=== PATIENT | female | born 1980 | race African-American/Black ===

== ENCOUNTER 2019-09-23 15:05 | Emergency (ER) | payer OTHER, SELFPAY ==
[2019-09-23 15:14] VITALS: BP 149/76; PULSE 89; RESP 18; TEMP 37.3; O2SAT 100
--- NOTE | 2019-09-23 15:14 | ED_ITS ---
HPI - Eye Problem General Chief complaint: Eye Problems Stated complaint: R EYE CHEMICAL EXPOSURE Time Seen by Provider: 09/23/19 15:11 Source: patient Mode of arrival: ambulatory Limitations: no limitations History of Present Illness HPI Narrative: Patient is a 39-year-old female who presents with right eye irritation after splashing some bleach cleaning products into the right eye irrigated the eye for 20 minutes patient denies any visual changes presents for evaluation notes her tetanus is up-to-date and is otherwise resting comfortably in the room in no distress noting only mild discomfort at the eye worse with movement Related Data Allergies Allergy/AdvReac Type Severity Reaction Status Date / Time No Known Allergies Allergy Unverified 09/23/19 15:13 Review of Systems Review of Systems: Narrative: CONSTITUTIONAL: Denies fever, chills, or sweats. EYES: Denies visual changes ENT: Denies rhinorrhea, congestion, sore throat, or otalgia. RESPIRATORY: Denies cough or dyspnea. GASTROINTESTINAL: Denies nausea, vomiting SKIN: Denies rash or itching. NEUROLOGIC: Denies headache, numbness PMFSH Social History Social History (Updated 09/23/19 @ 15:16 by Duke Lerma PA-C) Smoking status: Never smoker Gender identity (if verbalized by the patient): Female Exam Narrative: Exam Narrative: GENERAL: Well-appearing, well-nourished, and in no acute distress. HEAD: Normocephalic, atraumatic. Subtle fluorescein uptake over the iris remainder of eye exam unremarkable EYES: PERRLA and EOMI. right eye with conjunctival injection no discharge noted no abrasions noted ENT: Nares clear, no rhinorrhea or epistaxis. Mucous membranes moist. Oropharynx without tonsillar hypertrophy exudate or other lesions. CHEST: Clear to auscultation. No respiratory distress. No wheezes rales or rhonchi HEART: Regular rate and rhythm. No murmur heard. SKIN: Warm, dry, no rash. NEURO: No focal deficits. Alert and oriented x3. PSYCH: Normal mood and affect. Course Course Emergency Course: Patient in the room aware of case findings treatment plan and diagnosis Poison control was contacted eye was irrigated as recommended with fluorescein staining will be discharged home for further evaluation by ophthalmology provided with reasons to return MDM - Eye Problem MDM Narrative Medical decision making narrative: Patient with chemical conjunctivitis with po ssible subtle fluorescein uptake will be referred to ophthalmology provided with reasons to return resting comfortably in the room in no distress Discharge Plan Discharge Clinical Impression: Corneal abrasion Patient Disposition: Home, Self-Care Condition: Stable Instructions: Antibiotic Form, Conjunctivitis (ED) Additional Instructions: Follow-up with ophthalmology in the next 24 hours to set up for reevaluation return if symptoms worsen or concerns or any increase in redness swelling pain fever 100.5 vomiting or visual changes Use [id number] preservative-free tears every 2 hours for symptom relief Follow patient education sheets Prescriptions: New erythromycin 5 mg/gram (0.5 %) ointment 1 applic RIGHT EYE Q6H Qty: 1 RF: 0 Follow-up/Referrals: Virgil,DANIELA Polanco [Primary Care Provider] - Kenzie Barcenas [Outside] Kenzie Pal [Outside]
--- NOTE | 2019-09-23 15:25 | PC.NURSE ---
Patient reports that she rinsed her eyes out for 20 minutes at home but that poison control told her she should do this for 30 minutes. Patient taken to the eye wash station for an additional 10 minutes of flushing to her eyes.
--- NOTE | 2019-09-23 15:38 | PC.NURSE ---
Patient was using [employer] mildew destroyer with bleach. States she was spraying above her head when a large drop came down and landed in her right eye.
== END 2019-09-23 16:15 | disposition home or self-care (01) ==
PROVIDERS: Emergency Provider Emergency Medicine; PCP Nurse Practitioner Family
DX: S05.01XA Injury of conjunctiva and corneal abrasion without foreign body, right eye, initial encounter (principal); X58.XXXA Exposure to other specified factors, initial encounter
CPT/HCPCS: 99283; A9270

== ENCOUNTER 2020-02-12 16:33 | Emergency (ER) | payer OTHER, SELFPAY ==
--- NOTE | ~2020-02-12 | XR_ITS ---
XR ankle LT min 3V DATE: 02/12/2020 16:51 INDICATION: Anterior ankle pain after fall TECHNIQUE: 4 views COMPARISON: None FINDINGS: No fracture or dislocation of the ankle or disruption of the ankle mortise. IMPRESSION: Negative Reviewed, dictated and finalized at location A. IMPRESSION: Negative
[2020-02-12 16:43] VITALS: BP 140/80; PULSE 97; RESP 16; TEMP 36.8; O2SAT 100
--- NOTE | 2020-02-12 16:54 | ED.LOWEXIN ---
HPI - Extremity Injury (Lower) General Chief Complaint: Extremity Injury, Lower Stated Complaint: ankle/foot pain Time Seen by Provider: 02/12/20 16:54 Source: patient and RN notes reviewed Mode of arrival: ambulatory Limitations: no limitations History of Present Illness HPI Narrative: 39 year old female who presents to [facility] care with complaints of 2 day history of pain to her left anterior ankle. Patient states that she fell down 3-4 metal steps that were wet 2 days ago and thinks she my of twisted or hyper extended her ankle. Pain is at the anterior aspect of her left ankle radiating to her lateral ankle area and up to brown, no acute swelling, redness or any abrasions noted to ankle area, has not taken anything for pain or applied any ice to her ankle.Patient states that pain is increased by ambulation and flexion and extension of her foot, some tingling and numbness to her foot intermittently voiced when foot at rest, strong left pedal and posterior tibial pulses to left foot.Denies any other injury. MD complaint: ankle injury and fall Onset (ago): day(s) (2) Injury: Left: ankle (anterior left) Type of Injury: hyperflexion Place: street/outdoors Severity: moderate Severity scale (1-10): 7 (with ambulation) Relieving factors: rest Exacerbating factors: weight bearing and movement Context: fall Associated symptoms: tingling (at rest intermittent) Other symptoms: none Related Data Home Medications Medication Instructions Recorded Confirmed No Home Medications 02/12/20 02/12/20 Allergies Allergy/AdvReac Type Severity Reaction Status Date / Time No Known Allergies Allergy Verified 02/12/20 16:48 Review of Systems Review of Systems: Narrative: CONSTITUTIONAL: Denies fever, chills, or sweats. EYES: Denies visual changes, redness, or discharge. ENT: Denies rhinorrhea, congestion, sore throat, or otalgia. CARDIOVASCULAR: Denies chest pain, palpitations, or edema. RESPIRATORY: Denies cough or dyspnea. GASTROINTESTINAL: Denies abdominal pain, nausea, vomiting, or diarrhea. GENITOURINARY: Denies dysuria or hematuria. SKIN: Denies rash or itching. MUSCULOSKELETAL: Denies back pain,positive for left anterior ankle joint pain, or myalgia. NEUROLOGIC: Denies headache, numbness, or weakness. PSYCHIATRIC: Denies anxiety or depression. All systems reviewed & are unremarkable except as noted in HPI and below PMFSH Past Medical History Medical History (Updated 02/15/20 @ 20:08 by Madiha Escamilla NP) Chiari malformation Sinusitis UTI (urinary tract infection) Surgical History Surgical History (Updated 02/12/20 @ 17:29 by Madiha Escamilla NP) H/O tubal ligation Social History Social History (Updated 02/15/20 @ 19:54 by Madiha Escamilla NP) Smoking status: Never smoker Living arrangements: with family Gender identity (if verbalized by the patient): Female Comments At time of signature, agree with nursing past medical, surgical, social history. There is no relevant family history pertinent to the presenting complaint Exam Narrative: Exam Narrative: GENERAL: Well-appearing, well-nourished, and in no acute distress. HEAD: Normocephalic, atraumatic. EYES: PERRLA and EOMI. ENT: Nares clear, no rhinorrhea or epistaxis. Mucous membranes moist. NECK: Supple. CHEST: Clear to auscultation. No respiratory distress.SAO2 100% on room air. HEART: Regular rate and rhythm. No murmur heard. Normal peripheral pulses. ABDOMEN: Soft, nontender, nondistended, normal active bowel sounds. EXTREMITIES: Normal range of motion but with discomfort on flexion and extension of foot. Pain to anterior aspect of her left ankle radiating into lateral ankle, strong pulses to left foot, no acute edema or bruising noted. nail beds have brisk capillary refill with foot warm to touch SKIN: Warm, dry, no rash. NEURO: No focal deficits. Alert and oriented x3. Course Vital Signs Vital signs: Vital Signs Temperature 36.8 C 02/12/20 1
--- NOTE | 2020-02-12 17:01 | PC.NURSE ---
1643- pt refused ice
== END 2020-02-12 17:20 | disposition home or self-care (01) ==
PROVIDERS: Emergency Provider Registered Nurse; PCP Nurse Practitioner Family
DX: S93.402A Sprain of unspecified ligament of left ankle, initial encounter (principal); S96.912A Strain of unspecified muscle and tendon at ankle and foot level, left foot, initial encounter; W10.9XXA Fall (on) (from) unspecified stairs and steps, initial encounter; Q07.00 Arnold-Chiari syndrome without spina bifida or hydrocephalus
CPT/HCPCS: 73610; 99213; G0463

== ENCOUNTER 2021-01-27 10:28 | Outpatient (CLI) | payer OTHER, SELFPAY ==
--- NOTE | ~2021-01-27 | MR_ITS ---
EXAMINATION: MR brain/brain stem wo/w con DATE: 01/27/2021 11:59 INDICATION: Arnold-Chiari syndrome without spina bifida or hydrocephalus. Headache. TECHNIQUE: Magnetic resonance imaging (MRI) of the brain and brainstem was performed without and with 20 mL MultiHance intravenous contrast. Sequences included sagittal and axial T1-weighted FSE, axial diffusion-weighted FS EPI, axial T2*-weighted GRE, axial T2-weighted FLAIR Propeller, and axial T2-we ighted Propeller. Postcontrast sequences included axial and coronal T1-weighted FSE. Apparent diffusi on coefficient (ADC) maps were created. Sequences of the orbits included coronal and axial T2-weighte d FS FSE and T1-weighted FSE. Postcontrast sequences included axial and coronal T1-weighted FS FSE. COMPARISON: Brain MRI 09/05/2017 FINDINGS: There is an empty sella. The cerebellar tonsils extend 8.6 cm inferior to foramen magnum, c onsistent with Chiari I malformation. There is no intracranial hemorrhage, acute infarction, or abnor mal intracranial mass lesion. The ventricles are normal in size. The mastoid air cells are normal. Th ere is mild mucosal thickening in the paranasal sinuses. In the superior right orbit, there is a 2.1 x 0.7 x 0.8 cm cyst with mass effect on the superior rectus muscle. IMPRESSION: 1. Chiari I malformation, stable from 09/05/2017. 2. 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 Reviewed, dictated and finalized at location B. IMPRESSION: 1. Chiari I malformation, stable from 09/05/2017. 2. 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
[2021-01-27 11:19] LABS: Estimated Glomerular Filt Rate > 60
== END 2021-01-27 10:29 ==
LOC: MICIMG 10:30
PROVIDERS: PCP Nurse Practitioner Family; Visit Provider Nurse Practitioner Family
DX: Q07.00 Arnold-Chiari syndrome without spina bifida or hydrocephalus (principal); H05.811 Cyst of right orbit
CPT/HCPCS: 70553; A9577

== ENCOUNTER 2021-02-24 15:10 | Emergency (ER) | payer OTHER, SELFPAY ==
--- NOTE | ~2021-02-24 | XR_ITS ---
EXAMINATION: XR hand RT min 3V INDICATION: Right hand pain TECHNIQUE: Three views of the right hand are obtained. COMPARISON: None available FINDINGS: There is no fracture, dislocation, or subluxation. The bones, soft tissues, and joint space s are normal. IMPRESSION: 1. No acute osseous abnormality. Reviewed, dictated and finalized at location A.
[2021-02-24 15:26] VITALS: BP 140/100; PULSE 93; RESP 16; TEMP 36.6; O2SAT 100
--- NOTE | 2021-02-24 15:43 | ED.UPPEXIN ---
HPI - Extremity Injury (Upper) General Chief Complaint: Extremity Injury, Upper Stated Complaint: right hand swelling/pain Time Seen by Provider: 02/24/21 15:40 Source: patient Mode of arrival: ambulatory Limitations: no limitations History of Present Illness HPI narrative: Sylvester Ogden is a 24-vuta-yykc-old female with a PMH of HTN who [facility] hand pain And centers in the fifth finger with radiation to wrist of hand; unable to grasp or do finger opposition without pain and there is mild swelling and palm of hand Related Data Allergies Allergy/AdvReac Type Severity Reaction Status Date / Time No Known Allergies Allergy Verified 02/12/20 16:48 Review of Systems Review of Systems: CONSTITUTIONAL: Denies fever, chills, sweats. EYES: Denies visual changes, redness, discharge. ENT: Denies rhinorrhea, congestion, sore throat, otalgia. CARDIOVASCULAR: Denies chest pain, palpitations, edema. RESPIRATORY: Denies dyspnea, wheezing, cough GASTROINTESTINAL: Denies abdominal pain, nausea, vomiting, diarrhea. GENITOURINARY: Denies dysuria, hematuria, abnormal discharge SKIN: Denies rash or itching. NEUROLOGIC: Denies numbness, or focal weakness. PSYCHIATRIC: Denies anxiety or depression. Right hand pain fifth finger PMFSH Past Medical History Medical History (Updated 02/24/21 @ 16:10 by Carissa Cruz CNP) Chiari malformation Sinusitis UTI (urinary tract infection) Surgical History Surgical History (Updated 02/12/20 @ 17:29 by Madiha Escamilla NP) H/O tubal ligation Social History Social History (Updated 02/24/21 @ 15:46 by Carissa Cruz CNP) Smoking status: Never smoker Alcohol intake: never Gender identity (if verbalized by the patient): Female Comments At time of signature, I agree with nursing past medical, surgical, social and family history. There is no relevant family history pertinent to the presenting complaint. Exam Narrative: GENERAL: This is a well-nourished, well-developed patient, in mild distress. HEAD: normocephalic, atraumatic. EYES: PERRL. Sclera clear/white. Vision is grossly intact. EARS: External ears normal, Hearing grossly intact. NOSE: External nose normal without nasal discharge, nares without redness, no rhinorrhea. THROAT: Mucous membranes moist, NECK: Neck supple, non-tender CARDIOVASCULAR: Regular rate and rhythm without murmurs, gallops, or rubs. RESPIRATORY: Clear to auscultation. Breath sounds equal bilaterally. No wheezes, rales, or rhonchi. GASTROINTESTINAL: Abdomen soft, SKIN: warm, intact with no suspicious lesions or rash, good texture and turgor. NEURO: awake, alert, and oriented to person, place and time. There were no obvious focal neurologic abnormalities. Steady gait EXTREMITIES: Right hand has poor finger opposition and poor interfinger strength mostly due to swelling and pain in her fifth finger BACK: Nontender without deformity Course Course Emergency Course: Patient planing of 3 days of right hand pain with little finger with radiation into the hand X-ray of hand-no fracture dislocation or subluxation Derek wrap to hand and started on Medrol Dosepak Vital Signs Vital signs: Vital Signs Temperature 97.9 F 02/24/21 15:26 Pulse Rate 93 02/24/21 15:26 Respiratory Rate 16 02/24/21 15:26 Blood Pressure 140/100 H 02/24/21 15:26 Pulse Oximetry 100 02/24/21 15:26 Temperature 97.9 F 02/24/21 15:26 Pulse Rate 93 02/24/21 15:26 Respiratory Rate 16 02/24/21 15:26 Blood Pressure 140/100 H 02/24/21 15:26 Pulse Oximetry 100 02/24/21 15:26 MDM - Extremity Injury (Upper) Differential Diagnosis Differential diagnosis: Likely sprain and strain of wrist, finger sprain, dislocation of finger, fracture of hand and other Critical Care Time Critical Care Time Critical Care Time: No Discharge Plan Discharge Clinical Impression: Hand pain, right Patient Disposition: Home, Self-Care
== END 2021-02-24 16:29 | disposition home or self-care (01) ==
PROVIDERS: Emergency Provider Nurse Practitioner; PCP Nurse Practitioner Family
DX: M79.641 Pain in right hand (principal); I10 Essential (primary) hypertension
CPT/HCPCS: 73130; 99213; G0463

== ENCOUNTER 2021-06-15 08:29 | Outpatient (CLI) | payer OTHER, SELFPAY ==
--- NOTE | 2021-06-15 11:00 | NEURO_ITS ---
Impression: # Complains of paresthesia of lower extremities. # Normal nerve conduction study. # Normal needle/EMG exam. # Clinical correlation recommended. Nerve Conduction Studies Anti Sensory Summary Table Stim Site NR Peak (ms) P-T Amp (?V) Site1 Site2 Delta-P (ms) Dist (cm) Yasir (m/s) Left Sup Fibular Anti Sensory (Ant Lat Mall) 14 cm 2.7 9.2 14 cm Ant Lat Mall 2.7 16.0 59 Right Sup Fibular Anti Sensory (Ant Lat Mall) 14 cm 2.9 15.7 14 cm Ant Lat Mall 2.9 16.0 55 Left Sural Anti Sensory (Lat Mall) Calf 3.1 10.4 Calf Lat Mall 3.1 16.0 52 Right Sural Anti Sensory (Lat Mall) Calf 3.0 26.2 Calf Lat Mall 3.0 16.0 53 Motor Summary Table Stim Site NR Onset (ms) O-P Amp (mV) Site1 Site2 Delta-0 (ms) Dist (cm) Yasir (m/s) Left Peroneal Motor (Vastus Med) Ankle 3.6 6.5 Popit Ankle 7.3 40.0 55 Popit 10.9 4.8 Right Peroneal Motor (Vastus Med) Ankle 3.4 5.6 Popit Ankle 6.6 36.0 55 Popit 10.0 5.2 Left Tibial Motor (Abd Kennedy Brev) Ankle 3.8 6.0 Knee Ankle 8.1 39.0 48 Knee 11.9 4.5 Right Tibial Motor (Abd Kennedy Brev) Ankle 3.8 4.1 Knee Ankle 8.2 39.0 48 Knee 12.0 4.4 F Wave Studies NR F-Lat (ms) L-R F-Lat (ms) Left Peroneal (Mrkrs) (EDB) 44.96 1.21 Right Peroneal (Mrkrs) (EDB) 43.75 1.21 Left Tibial (Mrkrs) (Abd Hallucis) 43.92 0.30 Right Tibial (Mrkrs) (Abd Hallucis) 44.21 0.30 EMG Side Muscle Nerve Root Ins Act Fibs Amp Dur Recrt Comment Right AntTibialis Dp Br Fibular L4-5 Nml Nml Nml Nml Nml Right Gastroc Tibial S1-2 Nml Nml Nml Nml Nml Right Fibularis Long Sup Br Fibular L5-S1 Nml Nml Nml Nml Nml Right Flex Dig Long Tibial L5-S2 Nml Nml Nml Nml Nml Right Ext Dig Brev Dp Br Fibular L5, S1 Nml Nml Nml Nml Nml Left AntTibialis Dp Br Fibular L4-5 Nml Nml Nml Nml Nml Left Gastroc Tibial S1-2 Nml Nml Nml Nml Nml Left Fibularis Long Sup Br Fibular L5-S1 Nml Nml Nml Nml Nml Left Flex Dig Long Tibial L5-S2 Nml Nml Nml Nml Nml Left Ext Dig Brev Dp Br Fibular L5, S1 Nml Nml Nml Nml Nml MTDD
== END 2021-06-15 08:30 | disposition home or self-care (01) ==
PROVIDERS: PCP Nurse Practitioner Family; Visit Provider Nurse Practitioner Family
DX: R20.2 Paresthesia of skin (principal)
CPT/HCPCS: 95886; 95910

== ENCOUNTER 2021-12-26 14:28 | Outpatient (CLI) | payer OTHER, SELFPAY ==
--- NOTE | 2021-12-26 | ECG_ITS ---
Measurements Intervals Elaine Rate: 69 P: 65 MI: 141 QRS: 30 QRSD: 92 T: 22 QT: 352 QTc: 380 Interpretive Statements SINUS RHYTHM BASELINE ARTIFACT- I, II, III, AVR, AVL, AVF, V1 NORMAL ECG Electronically Signed On 12-26-2021 15:35:50 CDT by Dimas Noble D.O.
--- NOTE | 2021-12-26 | ECHO_ITS ---
Patient Info Name: Sylvester Ogden Age: 41 years : 1980 Gender: Female Ht: 64 in Wt: 250 lbs BSA: 2.32 m2 HR: 75 bpm BP: 115 / 82 mmHg Heart Rhythm: Sinus Rhythm Technical Quality: Fair Exam Date: 12/26/2021 3:02 PM Exam Location: [facility] Patient Status: Outpatient Admit Date: 12/26/2021 Staff Ordering Physician: VirgilSherri NP Digital Media Strategist: Namrata Soto RDCS Attending Provider: Virgil, Sherri SUAREZ Exam Type: CA echo doppler color flow Study Info Indications - Chest pain, Cardiac murmur Complete two-dimensional, color flow and Doppler transthoracic echocardiogram is performed. Summary 1. Complete two-dimensional, color flow and Doppler transthoracic echocardiogram is performed. 2. Left ventricular chamber dimension is normal. 3. Left ventricular systolic function is normal, estimated at 60-65%. 4. The left ventricular diastolic function is abnormal. 5. E/e' 11 is mildly elevated. 6. Left atrial chamber dimension is mildly enlarged. 7. There is mild mitral valve regurgitation. 8. There is trace tricuspid valve regurgitation. 9. No pulmonary hypertension, estimated pulmonary arterial systolic pressure is 29 mmHg. Left Ventricle E/e' 11 is mildly elevated. Left ventricular chamber dimension is normal. Left ventricular systolic function is normal, estimated at 60-65%. The left ventricular diastolic function is abnormal. Right Ventricle Right ventricular systolic function is normal and with normal TAPSE 2.5 cm. Right ventricular chamber dimension is normal. Left Atria Left atrial chamber dimension is mildly enlarged. Right Atria Right atrial chamber dimension is normal. Aortic Valve The aortic valve is trileaflet. There is no aortic valve stenosis. There is no aortic valve regurgitation. Pulmonic Valve There is no pulmonic regurgitation. Mitral Valve There is no mitral valve stenosis. There is mild mitral valve regurgitation. Tricuspid Valve There is trace tricuspid valve regurgitation. No pulmonary hypertension, estimated pulmonary arterial systolic pressure is 29 mmHg. Pericardium/Pleural There is no pericardial effusion. Inferior Vena Cava Normal inferior vena cava with >50% collapse upon inspiration consistent with normal right atrial pressure, 5 mmHg. Aorta The aortic root size at the sinus of Valsalva is normal. Left Ventricular Outflow Tract Name Value Normal LVOT 2D LVOT Diameter 2.0 cm LVOT Doppler LVOT Peak Gradient 4 mmHg LVOT Mean Gradient 2 mmHg LVOT VTI 21 cm LVOT VTI/AV VTI Ratio 0.7 LVOT Stroke Volume 65 ml LVOT CO 4.5 l/min LVOT CI 2.0 l/min/m2 Pulmonic Valve Name Value Normal RVOT Doppler
== END 2021-12-26 14:29 | disposition home or self-care (01) ==
PROVIDERS: PCP Nurse Practitioner Family; Visit Provider Nurse Practitioner Family
DX: R07.89 Other chest pain (principal); R01.1 Cardiac murmur, unspecified; I34.0 Nonrheumatic mitral (valve) insufficiency
CPT/HCPCS: 93005; 93306

== ENCOUNTER 2022-07-13 13:44 | Outpatient (CLI) | payer OTHER, SELFPAY ==
--- NOTE | ~2022-07-13 | CT_ITS ---
EXAMINATION: CT abdomen pelvis wo/w con DATE: 07/13/2022 14:33 INDICATION: Microscopic hematuria. TECHNIQUE: Computed tomography (CT) of the abdomen and pelvis was performed without and with intraven ous contrast using a total of 130 mL Omnipaque-350 intravenous contrast with a double-bolus technique for simultaneous opacification of the renal parenchyma and renal collecting system. Automated exposu re control and iterative reconstruction technique were employed. The dose-length product was 2028.63 mGy-cm. COMPARISON: None FINDINGS: The visualized portions of the lung bases demonstrate mild dependent atelectasis. No pleural effusion . The heart size is normal. No pericardial effusion. There is a 4 mm cyst in the liver. The gallbladd er, spleen, pancreas, adrenal glands, and right kidney are normal. There is a 3 mm stone in left kidn ey. The right ureter is not well opacified, but is normal. Left ureter is well opacified and is leslie l. There are no dilated loops of bowel. The appendix is normal. There are no pathologically enlarged lymph nodes. There is no free intraperitoneal fluid. There is mild thoracolumbar spondylosis. IMPRESSION: 1. 3 mm nonobstructing left kidney stone. Reviewed, dictated and finalized at location A. NKER
[2022-07-13 14:09] LABS: Estimated Glomerular Filt Rate > 60
== END 2022-07-13 13:45 ==
LOC: MICIMG 13:45
PROVIDERS: PCP Nurse Practitioner Family
DX: R31.29 Other microscopic hematuria (principal); N20.0 Calculus of kidney
CPT/HCPCS: 74178; Q9967

== ENCOUNTER → 2022-07-16 16:43 | Outpatient (CLI) | payer OTHER, SELFPAY ==
--- NOTE | ~2022-07-16 | MM_ITS ---
EXAMINATION: MM screening elliot BI w anisa HISTORY: Screening mammogram TECHNIQUE: Craniocaudal and mediolateral oblique 3-D tomosynthesis images were obtained and synthetic 2-D images were generated. CAD analysis was submitted and interpreted. COMPARISON: No prior mammogram is available for comparison at this institution. BREAST PARENCHYMAL COMPOSITION: There are scattered areas of fibroglandular density. FINDINGS: There is no evidence of suspicious mass, calcification, or architectural distortion to sugg est malignancy in either breast. IMPRESSION: 1. No mammographic evidence of malignancy. 2. Recommend routine screening mammography in one year. BI-RADS Category 1: Negative Reviewed, dictated and finalized at location A. 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
== END ==
PROVIDERS: PCP Nurse Practitioner Family; Visit Provider Nurse Practitioner Family
DX: Z12.31 Encounter for screening mammogram for malignant neoplasm of breast (principal)
CPT/HCPCS: 77063; 77067

== ENCOUNTER 2022-08-30 09:08 | Emergency (ER) | payer OTHER, SELFPAY ==
[2022-08-30] VITALS (7 sets, daily range): BP systolic 113–124; BP diastolic 69–80; PULSE 89–102; RESP 14–19; TEMP 36.8; O2SAT 100
--- NOTE | ~2022-08-30 | CT_ITS ---
EXAMINATION: CTA chest PE protocol DATE: 08/30/2022 11:09 INDICATION: Pleuritic chest pain TECHNIQUE: Computed tomography angiography (CTA) of the chest was performed with 100 mL Omnipaque-350 intravenous contrast timed to evaluate the pulmonary arteries. Coronal maximum intensity projection 3D-reconstructions were created by the technologist. The dose-length product (DLP) was 415.45 mGy-cm. Automated exposure control and iterative reconstruction technique were employed. COMPARISON: None. FINDINGS: The pulmonary arteries are well-opacified. No pulmonary embolism is identified. The lungs a re free of acute opacities. No pleural effusion or pneumothorax. No pathologically enlarged thoracic lymph nodes are identified. The heart size is normal. The visualized osseous structures are unremarka ble. IMPRESSION: 1. No pulmonary embolism or acute cardiopulmonary abnormality. Reviewed, dictated and finalized at location L.
--- NOTE | 2022-08-30 09:21 | ED.CHESTPAIN ---
HPI - Chest Pain General Chief Complaint: Chest Pain Stated Complaint: chest pain Time Seen by Provider: 08/30/22 09:10 History of Present Illness HPI narrative: 42-year-old female with a history of diabetes on Wegovy here for evaluation of chest pain for the past 3 days. Patient states the pain is in the center of her chest, is worse when she is lying flat or when she takes deep breaths. States that the pain remains in the center of her chest and does not radiate. She denies any associated cough, shortness of breath, sinus congestion, fevers or chills, nausea or vomiting, abdominal pain, leg pain or swelling. She has never had a similar pain in the past. She attempted Prilosec without relief of her symptoms. Related Data Home Medications Medication Instructions Recorded Confirmed semaglutide (weight loss) 0.25 mg subcut 08/30/22 mg/0.5 mL subcutaneous pen injector (Wegovy) semaglutide (weight loss) 0.5 mg subcut 08/30/22 mg/0.5 mL subcutaneous pen injector (Wegovy) Allergies Allergy/AdvReac Type Severity Reaction Status Date / Time No Known Allergies Allergy Verified 08/30/22 09:37 Review of Systems Review of Systems: Gen: Denies fevers or chills Eyes: Denies eye pain or visual change ENT: Denies congestion Respiratory: Denies shortness of breath or cough CV: Reports chest pain GI: Denies abdominal pain nausea, emesis or diarrhea denies burning, urgency, frequency or hematuria Musculoskeletal: Denies back pain or muscle pain Neuro: Denies numbness, tingling, weakness or focal weakness Skin: Denies rash Except as documented, all other systems reviewed and negative [facility] Past Medical History Medical History Chiari malformation Sinusitis UTI (urinary tract infection) Surgical History Surgical History H/O tubal ligation Social History Social History (Updated 02/24/21 @ 15:46 by Carissa Cruz, [employer]) Smoking status: Never smoker Alcohol intake: never Living arrangements: with family Gender identity (if verbalized by the patient): Female Exam Narrative: APPEARANCE: Well appearing, no pain in distress, well-nourished. Head: Normocephalic and atraumatic. EYES: PERRLA/EOMI, conjunctivae clear NOSE: No nasal drainage EARS: External ear normal in appearance THROAT: Oropharynx is clear. Mucous membranes are moist. NECK: Supple. No adenopathy, no masses. RESPIRATORY: Airway patent, respirations nonlabored. Clear to auscultation bilaterally, no rales, rhonchi, wheezing. CARDIOVASCULAR: Regular rate and rhythm without murmurs, rubs, or gallops. ABDOMINAL: Normoactive bowel sounds. Soft, nontender, nondistended. No rebound tenderness or guarding. MUSCULOSKELETAL: Extremities are warm and well-perfused. Moves all extremities well. No edema. NEURO: Normal speech. No focal neurologic deficits. SKIN: Skin is warm and dry. No rashes. PSYCHIATRIC: Normal affect/mood. Course Vital Signs Vital signs: Vital Signs Temperature 98.3 F 08/30/22 09:13 Pulse Rate 98 08/30/22 09:13 Respiratory Rate 16 08/30/22 09:13 Blood Pressure 124/80 08/30/22 09:13 Pulse Oximetry 100 08/30/22 09:13 Oxygen Delivery Room Air 08/30/22 09:13 Temperature 98.3 F 08/30/22 09:13 Pulse Rate 91 08/30/22 11:13 Respiratory Rate 16 08/30/22 11:13 Blood Pressure 118/80 08/30/22 11:13 Pulse Oximetry 100 08/30/22 11:13 Oxygen Delivery Room Air 08/30/22 09:40 MDM - Chest Pain MDM Narrative Medical decision making narrative: 42-year-old female here for evaluation of chest pain over the past several days. Exam without evidence of volume overload so doubt heart failure. EKG without signs of active ischemia. Given the timing of pain to ER presentation, single troponin is negative so doubt NSTEMI. Dimer was slightly elevated, follow-up CTA PE study
--- NOTE | 2022-08-30 09:23 | ECG_ITS ---
Measurements Intervals [place] Rate: 92 P: 78 RI: 146 QRS: 40 QRSD: 97 T: 33 QT: 332 QTc: 412 Interpretive Statements SINUS RHYTHM BASELINE ARTIFACT- V6 NORMAL ECG COMPARED TO ECG 12/26/2021 15:07:00 NO SIGNIFICANT CHANGES Electronically Signed On 08-31-2022 12:32:19 CDT by Dimas Noble D.O.
[2022-08-30 10:00] LABS: Basophils Absolute Auto 0.1 K/mm3 (0.0-0.1); Basophils Percent Auto 0.5 % (0.2-1.2); Eosinophils Absolute Auto 0.1 K/mm3 (0-0.3); Eosinophils Percent Auto 0.7 % (0-4.4); Hematocrit 36.4 % (37.0-47.0); Hemoglobin 12.2 g/dL (12.0-15.0); Immature Granulocyte Absolute 0.03 K/mm3 (0.00-0.031); Immature Granulocyte Percent A 0.3 % (0-0.5); Mean Corpuscular HGB Conc 33.5 g/dl (32-36); Mean Corpuscular Hemoglobin 26.9 pg (26-34); Mean Corpuscular Volume 80.2 fl (80-100); Mean Platelet Volume 9.1 fl (7.4-10.4); Monocytes Absolute Auto 0.8 K/mm3 (0.1-0.6); Monocytes Percent Auto 7.4 % (2.6-8.5); Neutrophils Absolute Auto 7.7 K/mm3 (1.3-6.7); Neutrophils Percent Auto 70.1 % (45.5-73.1); Platelet Count Result 288 k/mm3 (150-375); Red Blood Count 4.54 M/mm3 (4.2-5.4); Red Cell Distribution Width 15.8 % (11.5-14.5)
[2022-08-30] MEDS: MAG HYDROX/AL HYDROX/SIMETH 30 ML UDC PO (10:00)
[2022-08-30 10:14] LABS: Alanine Aminotransferase 15 U/L (6-35); Albumin Level 4.6 g/dL (3.5-5.1); Alkaline Phosphatase 80 U/L (38-126); Anion Gap 7 mmol/L (8-16); Aspartate Amino Transferase 19 U/L (14-36); Bilirubin,Total 0.4 mg/dL (0.2-1.3); Blood Urea Nitrogen 7 mg/dL (7-17); Carbon Dioxide 28 mmol/L (22-30); Chloride 105 mmol/L (98-107); Estimated CRCL calculation 149 ml/min; Estimated Glomerular Filt Rate > 60; Glucose 91 mg/dL (65-110); Lipase 90 U/L (23-300); Potassium 3.7 mmol/L (3.4-5.0); Sodium 140 mmol/L (137-145)
[2022-08-30 10:15] LABS: INR 1.1; Prothrombin Time 13.5 Seconds (11.1-14.7)
[2022-08-30 10:16] LABS: Partial Thromboplastin Time 28.8 SECONDS (22.3-36.8)
[2022-08-30 10:25] LABS: Troponin I < 0.012 ng/mL (0.000-0.034)
[2022-08-30 10:47] LABS: D Dimer 0.65 ug/mL (<0.48)
[2022-08-30] MEDS: KETOROLAC 15 MG/ML VIAL (*BKC) IV PUSH (11:34)
== END 2022-08-30 11:42 | disposition home or self-care (01) ==
PROVIDERS: Emergency Provider Physician Assistant; PCP Nurse Practitioner Family
DX: R07.89 Other chest pain (principal); E11.9 Type 2 diabetes mellitus without complications; Z87.440 Personal history of urinary (tract) infections
CPT/HCPCS: 36415; 71275; 80053; 83690; 84484; 85025; 85380; 85610; 85730; 93005; 96374; 99284; A9270; J1885; Q9967

== ENCOUNTER 2024-06-11 15:20 | Emergency (ER) | payer OTHER, SELFPAY ==
[2024-06-11 15:28] VITALS: BP 136/89; PULSE 84; RESP 16; TEMP 37.2; O2SAT 100
--- NOTE | 2024-06-11 15:54 | ED.SKABFB ---
HPI - Skin/Abscess/Foreign Bdy General Chief complaint: Skin/Abscess/Foreign Body Stated complaint: cyst under left arm Time Seen by Provider: 06/11/24 15:24 Source: patient Mode of arrival: ambulatory Limitations: no limitations History of Present Illness HPI narrative: Patient is a 44-year-old female presents with cyst under left arm. States it started Saturday small and has grown in size significantly. Patient has been taking hot showers. Denies any drainage from area. Denies any fever, chills, nausea, vomiting, diarrhea. Related Data Allergies Allergy/AdvReac Type Severity Reaction Status Date / Time No Known Allergies Allergy Verified 06/11/24 15:27 Review of Systems Review of Systems: All systems reviewed & are unremarkable except as noted in HPI and below Constitutional: Constitutional: Denies body ache(s), Denies chills, Denies fatigue, Denies fever(s), Denies headache(s), Denies malaise and Denies weakness Eyes: Eyes: Denies blurry vision, Denies irritation and Denies loss of vision ENT: Denies otalgia, Denies headache(s), Denies nasal discharge, Denies sinus pain and Denies sore throat Cardiovascular: Cardiovascular: Denies chest pain, Denies irregular heart rhythm and Denies dyspnea Respiratory: Respiratory: Denies dyspnea Gastrointestinal: Gastrointestinal: Denies abdominal pain, Denies melena, Denies hematochezia, Denies diarrhea, Denies nausea and Denies vomiting Musculoskeletal: Musculoskeletal: Denies back pain, Denies myalgias and Denies arthralgias Integumentary/Breasts: Skin/Breast: Reports furuncle, Denies pruritus and Denies rash Neurologic: Denies headache(s), Denies loss of vision and Denies weakness Psychiatric: Psychiatric: Reports no additional psychiatric complaints Endocrine: Endocrine: Denies fatigue PMFSH Past Medical History Medical History Chiari malformation UTI (urinary tract infection) Sinusitis Surgical History Surgical History H/O tubal ligation Social History Social History Smoking status: Never smoker Alcohol intake: never Living arrangements: with family Gender identity (if verbalized by the patient): Female Comments At time of signature, agree with nursing past medical, surgical, social and family history. There is no relevant family history pertinent to the presenting complaint. Exam Const: General: cooperative, healthy appearing, comfortable, no acute distress and well nourished Nutritional Appearance: well nourished Orientation/consciousness: patient oriented x3 Limitations: no limitations HENMT: Head: normal to inspection, normocephalic and atraumatic Ears: hearing grossly normal bilaterally and external ears normal Face/Nose/Sinus: Normal external nose present, normal facial exam and face symmetric Face and sinus: normal facial exam and face symmetric Mouth: Yes lip normal Eyes: General: appearance normal, both eyes and all related structures Alignment and Position: alignment normal and position normal Periorbital: periorbital findings normal Eyelids: eyelids normal Pupils: Equal, round and reactive pupils present EOM: EOMs intact bilaterally Neck: Neck: normal visual inspection, full ROM and supple Chest: Chest palpation & inspection: normal inspection of the chest and mass left mid-axillary line firm (edges), fluctuant (middle), fixed and tender Chest/axillae images:  1. 2x2 cm mass with induration and center fluctuation. No open areas. Tenderness on palpation. Erythema and warmth noted. Resp: Effort & Inspection: normal respiratory effort and able to speak in complete sentences Auscultation: clear to auscultation bilaterally Cardio: Rate: regular rate Rhythm: regular rhythm Heart sounds: S1 normal heart sound present and S2 normal heart sound present GI: Inspection: normal to inspection Skin: General skin exam: normal color and no rashes or lesions noted Neuro: General: patient oriented x3 and moves all extremities Cranial nerves: Yes Equal, round and reactive pupils present Speech: normal speech Gait exam (Neuro): Normal gait present Extrem: General: normal to inspection, full ROM and no edema Psych: Appearance: grossly normal and well kempt Mental Status: mental status grossly normal Speech and movement: Normal speech and movement present Affect: normal affect Attitude: cooperative Thought process: Normal thought process present Course Course Emergency Course: Patient is aware of diagnosis, understands and agrees to treatment plan. Anticipatory guidance given. Patient agrees to follow-up as directed and is aware of reasons to seek care at the emergency department. Portions of this record may have been created with voice recognition software Level of Care: Express Care Visit Vital Signs Vital signs: Vital Signs Temperature 37.2 C 06/11/24 15:28 Pulse Rate 84 06/11/24 15:28 Respiratory Rate 16 06/11/24 15:28 Blood Pressure 136/89 06/11/24 15:28 Pulse Oximetry 100 06/11/24 15:28 Oxygen Delivery Room Air 06/11/24 15:28 Temperature 37.2 C 06/11/24 15:28 Pulse Rate 84 06/11/24 15:28 Respiratory Rate 16 06/11/24 15:28 Blood Pressure 136/89 06/11/24 15:28 Pulse Oximetry 100 06/11/24 15:28 Oxygen Delivery Room Air 06/11/24 15:28 Reviewed Procedures Abscess I/D upper extremity: Date of Incision: 06/11/24 Time of Incision: 16:05 Side (if applicable): left Local Anesthetic: lidocaine 1% Amount of anesthesia used (mL): 1.5 Technique: incised with #11 blade Amount of fluid expressed (mL): 2 Irrigation: Yes Packing used?: none I&D Results: Pus and Blood Abcess I&D Additional Comments: Procedure explained to patient. Verbal consent obtained. Area cleansed with Betadine. Lidocaine instilled. Eleven blade used. Culture sent. MDM - Skin/Abscess/Foreign Bdy MDM Narrative Medical decision making narrative: Abscess drained, culture sent. Antibiotics ordered Pt well hydrated appearing, in no respiratory distress, hemodynamically stable. Recommend supportive care. The patient is stable at time of discharge the clinical impression was discussed and the patient was given the opportunity to ask questions, which were addressed as completely as possible given the information available at present. Anticipatory guidance and return to care precautions were discussed and the importance of primary care follow-up was stressed and encouraged. The patient voiced understanding of the plan, indications to return, and the need for follow-up. Patient is appropriate for outpatient treatment and follow-up. Differential Diagnosis Differential diagnosis: Likely abscess of skin or subcutaneous tissue, cellulitis and insect bites Medical Records Attestation: I reviewed the patient's medical records. Discharge Plan Discharge Clinical Impression: Abscess of skin or subcutaneous tissue Qualifiers: Site of cutaneous abscess: extremity Site of cutaneous abscess of extremity: upper extremity Laterality: left Qualified Code(s): L02.414 - Cutaneous abscess of left upper limb Patient Disposition: Home, Self-Care Condition: Stable Instructions: Abscess (ED) Additional Instructions: You have had an abscess drained at [facility]. You may shower - let the soapy water clean your wound, do not scrub it. Keep your wound covered to prevent transmission of infection to other people. Keep the wound covered and dry. Once a day: wash the wound with soap/water, apply bacitracin and re-cover the wound. Follow up with your primary care physician or in the Emergency Department in 2-3 days for a wound check. Go to the Emergency Department immediately if you develop any of the following symptoms: Fevers, Increased redness or swelling around where your abscess was, Increased pain, or Generalized weakness or vomiting Patient Language: Mauritanian Prescriptions: New sulfamethoxazole-trimethoprim 800-160 mg tablet 1 tablet PO Q12H 10 Days Qty: 20 0RF mupirocin 2 % ointment 1 applic topical BID Qty: 15 0RF Follow-up/Referrals: PHYSICIAN,INTERNET SALES ASSOCIATE [Primary Care Provider] - Farshad Rodriguez MD [Physician] - 3 Days Stand Alone Forms: Work/School Release IP Time of Disposition: 16:22
== END 2024-06-11 16:28 | disposition home or self-care (01) ==
PROVIDERS: Emergency Provider Nurse Practitioner Family
DX: L02.412 Cutaneous abscess of left axilla (principal)
CPT/HCPCS: 10060; 87070; 87075; 87181; 87205; 99213; G0463; J2003

== ENCOUNTER 2024-10-12 13:12 | Emergency (ER) | payer OTHER, SELFPAY ==
[2024-10-12] VITALS (24 sets, daily range): BP systolic 96–124; BP diastolic 55–76; PULSE 74–97; RESP 12–24; TEMP 36.9; O2SAT 98–100
--- NOTE | ~2024-10-12 | CT_ITS ---
CLINICAL INDICATION: Left flank pain COMPARISON: 07/13/2022. TECHNIQUE: Multiple contiguous axial images of the abdomen and pelvis were performed following the ad ministration of with 100 mL Omnipaque-350 intravenous contrast The dose-length product (DLP) was 1280.01 mGy-cm. Automated exposure control and iterative reconstruction technique were employed. FINDINGS/OBSERVATIONS: Visualized lower thorax: The bilateral lung bases are clear. The heart is of normal size, without pericardial effusion. Small hiatal hernia is present. Liver: The liver demonstrates homogeneous enhancement and is not enlarged. Gallbladder and biliary system: The gallbladder is only minimally distended, and otherwise unremarkable. Pancreas: The pancreas enhances homogeneously without ductal dilatation. Spleen: The spleen enhances homogeneously and is not enlarged. Kidneys: Redemonstration of a 5 mm calculus within the lower pole of the left kidney. Prominence of the left renal pelvis is redemonstrated, unchanged from prior. The right kidney is unremarkable. The configuration of the calculi within the pelvis (likely representing phleboliths) is unchanged fro 2022. Adrenal glands: Unremarkable. Gastrointestinal tract: Colonic diverticulosis without surrounding inflammatory change. Appendix: The appendix is of normal caliber (axial series, image 127) Vasculature: Unremarkable. Lymph nodes: No pathologically enlarged or morphologically suspicious lymph nodes within the retroperitoneum or at the root of the mesentery. Pelvic structures: The bladder is only minimally distended, and otherwise unremarkable. The uterus is anteverted and anteflexed. Body wall and musculoskeletal: Small fat-containing umbilical hernia. No significant degenerative disease within the lower thoracic or lumbosacral spine. IMPRESSION: Redemonstration of a 5 mm calculus within the lower pole of the left kidney, as detailed above. Reviewed, dictated and finalized at location A.
--- NOTE | ~2024-10-12 | XR_ITS ---
EXAMINATION: XR chest 2V 10/12/2024 14:13 INDICATION: Chest pain for 2 weeks PROCEDURE: 2 view chest COMPARISON: 12/24/2018 FINDINGS: The lungs are clear. The cardiomediastinal silhouette is within normal limits. There are no pleural effusions. There is no pneumothorax suspected. IMPRESSION: 1: NO ACUTE CARDIOPULMONARY DISEASE. Reviewed, dictated and finalized at location A.
--- NOTE | 2024-10-12 13:37 | ECG_ITS ---
Test Date: 2024-10-12 13:42:34 Measurements Intervals [place] Rate: 81 P: 73 NC: 139 QRS: 35 QRSD: 94 T: 32 QT: 332 QTc: 385 Interpretive Statements SINUS RHYTHM POOR R-WAVE PROGRESSION BORDERLINE ECG No previous ECG available for comparison Electronically Signed On 10-12-2024 15:49:39 CDT by Andrea Gomez M.D.
--- OUTSIDE RECORDS SUMMARY | 2024-10-12 13:46 | XMS_ITS | Clinical Summary ---
Author Organization [facility] Address [address] [place] [address] Care Team Providers Care E Commerce Web Developer Name Role Phone Sherri Herman Luis DIRECTOR [employer] Primary Care Provider [phone] Allergies No known active allergies Medications No known medications Active Problems Problem Noted Date Diagnosed Date Obesity, Class III, BMI 40-49.9 (morbid obesity) 05/02/2022 Chronic diastolic heart failure ([facility] ) 05/02/2022 Dyslipidemia 05/02/2022 Chiari malformation type I ([facility]) Immunizations Immunization Administration Dates Next Due Dtp (Generic) 02/01/1988, 7,03/30/1983,1982,1982 Influenza (Generic) 03/22/2014 MMR (MMRII) 12/09/1992,04/29/1984 PFIZER COVID-19 (ORIGINAL FORMULATION, PURPLE CAP) mRNA, LNP-S, PF, 30 MCG/0.3 ML DOSE 10/22/2020,10/01/2020 Polio Opv (Generic) 02/01/1988, 7,03/30/1983,1982,1982 Family History Medical History Relation Comments DC Father Aneurysm Maternal Grandfather Stroke Maternal Grandmother Stroke Mother Valve Disease Mother Stroke Paternal Grandmother Relation Status Comments Father Maternal Grandfather Maternal Grandmother Mother Alive Paternal Grandmother Social History Tobacco Use Types Packs/Day Years Used Date Smoking Tobacco: Never Smokeless Tobacco: Never Alcohol Use Standard Drinks/Week Comments Yes 5 (1 standard drink = 0.6 oz pur e alcohol) occ Comments Unknown Sex and Gender Information Value Date Recorded Sex Assigned at Not on file Legal Sex Female 7:51 PM CDT Gender Identity Not on file Sexual Orientation Not on file Last Filed Vital Signs Vital Sign Reading Time Taken Comments Blood Pressure 104/60 07/04/2022 1:41 PM ADMINISTRATIVE SUPPORT TECHNICIAN Pulse 86 07/04/2022 1:41 PM ADMINISTRATIVE SUPPORT TECHNICIAN Temperature - - Respiratory Rate - - Oxygen Saturation - - Inhaled Oxygen Concentration - - Weight 112.9 kg (249 lb) 07/04/2022 1:41 PM ADMINISTRATIVE SUPPORT TECHNICIAN Height 162.6 cm (5' 4 ) 07/04/2022 1:41 PM ADMINISTRATIVE SUPPORT TECHNICIAN Body Mass Index 42.74 07/04/2022 1:41 PM ADMINISTRATIVE SUPPORT TECHNICIAN Plan of Treatment Upcoming Encounters Date Type Department Care Team (Late st Contact Info) Description 11/30/2024 12:30 PM CDT Office Visit [facility] [place] [address] Con Fontana MD [facility], [address] [place] [address] Health Maintenance Due Date Last Done Comments Cervical Cancer Screening Pap Smear (Age 30 to 64) Every 3 Years 1982 Annual Physical 1985 DTaP, Tdap and Td Vaccines (6 - Tdap) 1993 02/01/1988, 02/04/1987, 03/30/1983, Additional history exists Hepatitis C 2000 Hepatitis B Vaccines (1 of 3 - 19+ 3-dose series) 2001 Pneumococcal Vaccine: Pediatrics (0 to 5 Years) and At-Risk Patients (6 to 49 Years) (1 of 2 - PCV) 2001 Cervical Cancer Screening Pap with HPV Testing (Age 30 to 64) Every 5 Years 2012 Cervical Cancer Screening with HPV 2012 Mammogram Screening 2022 COVID-19 Vaccine ( season) 2024 10/22/2020, 10/01/2020 HPV Vaccines Aged Out No longer eligi ble based on patient's age to complete this topic Meningococcal B Vaccine Aged Out No l onger eligible based on patient's age to complete this topic Meningococcal Vaccine Aged Out No katia vandana eligible based on patient's age to complete this topic RSV Immunizations Under 20 Months Aged Out No longer eligible based on patient's age to complete this topic Insurance [facility] Care Teams E Commerce Web Developer Relationship Specialty Start Date End Date Sherri Herman, JOSE MANUEL [address] [place] [address] PCP - General NURSE PRACTITIONER 01/03/22
--- OUTSIDE RECORDS SUMMARY | 2024-10-12 13:46 | XMS_ITS | Clinical Summary ---
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 Encounters Date Type Department Care Team Description 09/16/2024 Telephone [facility] Ophthalmology [address] [place] [address] Malick Rogers MD Scheduling Appointments from Last 3 Months Surgical History Surgery Date Site/Laterality Comments RI OCCLUSION FLP TUBE DEV VAG/SUPRAPUBIC APPR Oviductal Surgery Tubal Occlusion By Device - (Added by Conv) Family History Medical History Relation Name Comments Hypertension Brother Breast cancer Cousin Family history of malignant neoplasm of breast - (Added by TW Conv) Heart attack Father Heart disease Father Family history of cardiac disorder - (Added by TW Conv) Diabetes Maternal Grandmother Hypertension Maternal Grandmother Kidney disease Maternal Grandmother Memory loss Maternal Grandmother Depression Mother Heart disease Mother Family history of cardiac disorder - (Added by TW Conv) Hypertension Mother Family history of hypertension - (Added by TW Conv) Memory loss Mother Breast cancer Other 1 Family history of malignant neoplasm of breast - Relation: Aunt (Added by TW Conv) Ovarian cancer Other 2 Family histor y of malignant neoplasm of ovary - Relation: Grandmother (Added by TW Conv) Relation Name Status Comments Brother Cousin Father Maternal Grandmother Mother Other 1 Other 2 Social History Tobacco Use Types Packs/Day Years Used Date Smoking Tobacco: Never Smokeless Tobacco: Never Tobacco Cessation:Counseling Given: No AUDIT-C Answer Date Recorded Q1: How often do you have a drink containing alc ohol? Monthly or less 02/15/2021 Q2: How many drinks containi ng alcohol do you have on a typical day when you are drinking? 1 or 2 02/15/2021 Q3: How often do you have si x or more drinks on one occasion? Never 02/15/2021 Comments Unknown Sex and Gender Information Value Date Recorded Sex Assigned at Not on file Legal Sex Female 11:59 AM CDT Gender Identity Not on file Sexual Orientation Not on file Obstetrics History Last Filed Vital Signs Vital Sign Reading Time Taken Comments Blood Pressure 125/79 11/06/2017 1:32 PM CDT Pulse 84 11/06/2017 1:32 PM CDT Temperature - - Respiratory Rate - - Oxygen Saturation - - Inhaled Oxygen Concentration - - Weight 116.2 kg (256 lb 3.2 oz) 02/15/2021 9:22 AM CDT Height 165.1 cm (5' 5 ) 02/15/2021 9:22 AM CDT Body Mass Index 42.63 02/15/2021 9:22 AM CDT Plan of Treatment Health Maintenance Due Date Last Done Comments Breast Cancer Screening-Mammogram 1982 Cervical Cancer Screening 1982 Depression Screening 1982 Hepatitis C Screening 1982 DTaP/Tdap/Td Vaccine (6 - Tdap) 1993 02/01/1988, 02/04/1987, 03/30/1983, Additional history exists Varicella Vaccines (1 of 2 - 13+ 2-dose series) 1995 Hepatitis B Screening 2000 Regular Well Visit/Exam 18-64 2000 Covid-19 Vaccine ( season) 2024 10/22/2020, 10/01/2020 Influenza Vaccine (Season Ended) 2025 03/22/2014 HPV Vaccines Aged Out No longer eligi ble based on patient's age to complete this topic Pneumococcal vaccine <65 Aged Out No longer eligible based on patient's age to complete this topic Insurance [facility] OPEN ACCESS [facility] CHOICE [facility] HMO/PPO Address: [address] [place] [address] [facility] CHOICE [facility] HMO/PPO Address: [address] [place] [address] Care Teams Drilling Inspector Relationship Specialty Start Date End Date Farshad Rodriguez MD [address] [place] [id number] PCP - General Emergency Medicine 09/14/24 Sherri Herman NP 10/04/17
--- OUTSIDE RECORDS SUMMARY | 2024-10-12 13:46 | XMS_ITS | Referral Summary ---
Author Organization [facility] Address [address] [place] [address] Care Team Providers Care Car Sales Representative Name Role Phone Sherri Herman NP Unavailable [phone] Farshad Rodriguez MD Primary Care Provider [phone] Encounters Date Type Department Care Team Description 09/16/2024 Telephone [facility] Ophthalmology [address] [place] [address] Malick Rogers MD Scheduling Appointments from Last 3 Months Allergies No known active allergies Medications No known medications Active Problems Problem Noted Date Diagnosed Date 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 Social History Tobacco Use Types Packs/Day Years [...] 02/15/2021 9:22 AM CDT Plan of Treatment Not on file Insurance [facility] OPEN ACCESS [facility] CHOICE PLUS [facility] H[facility]/PPO Address: [facility] [id number] [place] [address] [facility] CHOICE PLUS [facility] H[facility]/PPO Address: [facility] [id number] [place] [address] Care Teams Car Sales Representative Relationship Specialty Start Date End Date Farshad Rodriguez MD [address] [place] [id number] PCP - General Emergency Medicine 09/14/24 Sherri Herman NP 10/04/17
--- OUTSIDE RECORDS SUMMARY | 2024-10-12 13:46 | XMS_ITS | Encounter Summary ---
Author Organization [facility] Address [address] [place] [address] Care Team Providers Care Director Market Intelligence Name Role Phone Sherri Herman [facility] Primary Care Provider [phone] Encounter Details Date Type Department Care Team (Late Contact Info) Description 01/19/2022 [facility] [address] [place] [address] Beth Zuniga MA Social History Tobacco Use Types Packs/Day Years Used Date Smoking Tobacco: Never Smokeless Tobacco: Never Alcohol Use Standard Drinks/Week Comments Yes 5 (1 standard drink = 0.6 oz pur e alcohol) occ Comments Unknown Sex and Gender Information Value Date Recorded Sex Assigned at Not on file Legal Sex Female 7:51 PM CDT Gender Identity Not on file Sexual Orientation Not on file COVID-19 Exposure Response Date Recorded In the last 10 days, have yo u been in contact with someone who was confirmed or suspected to have Coronavirus/COVID-19? No / Unsure 01/17/2022 10:50 AM CDT documented as of this encounter Plan of Treatment Upcoming Encounters Date Type Department Care Team (Late Contact Info) Description 11/30/2024 12:30 PM CDT Office Visit [facility] [address] [place] [address] Con Fontana MD [facility] [address] [place], [place] [id number] documented as of this encounter Procedures Procedure Name Priority Date/Time Associated Diagnosis Comments CBC (OUTSIDE LAB) Routine 05/31/2022 COMPREHENSIVE METABOLIC PANEL Routine 05/31/2022 LIPID PANEL Routine 05/31/2022 HEMOGLOBIN, GLYCOSYLATED Routine 05/31/2022 THYROID STIM HORMONE TSH Routine 05/31/2022 CBC (OUTSIDE LAB) Routine 01/21/2021 COMPREHENSIVE METABOLIC PANEL Routine 01/21/2021 HEMOGLOBIN, GLYCOSYLATED Routine 01/21/2021 THYROID STIM HORMONE TSH Routine 01/21/2021 FOLATE (OUTSIDE LAB) Routine 07/02/2020 CBC (OUTSIDE LAB) Routine 07/02/2020 VITAMIN B-12 Routine 07/02/2020 COMPREHENSIVE METABOLIC PANEL Routine 07/02/2020 LIPID PANEL Routine 07/02/2020 IRON BINDING TEST Routine 07/02/2020 HEMOGLOBIN, GLYCOSYLATED Routine 07/02/2020 THYROID STIM HORMONE TSH Routine 07/02/2020 IRON Routine 07/02/2020 FERRITIN Routine 07/02/2020 documented in this encounter Results * CBC (OUTSIDE LAB) (05/31/2022) WBC 9.5 HGB 11.9 HCT 35.6 PLT 288 05/31/2022 Default History Genericprovider LAB-OUTSIDE/ABST RACTED Final Result * THYROID STIM HORMONE, TSH (05/31/2022) TSH 2.05 05/31/2022 Default History Genericprovider LABORATORY Final Result * HEMOGLOBIN, GLYCOSYLATED (05/31/2022) HGB A1C 5.6 % 05/31/2022 Default [facility] Genericprovider LABORATORY Final Result * (ABNORMAL) COMPREHENSIVE METABOLIC PANEL (05/31/2022) SODIUM S/P/B 137 POTASSIUM S/P/B 3.8 CO2 28 CHLORIDE S/P/B 105 GLUCOSE 89 mg/dL CALCIUM S/P/B 9.4 BUN 16 CREATININE S/P/B 0.53 0.5 - 1.0 EGFR NON-AFR. AMER. 120(A) <=90 ALKALINE PHOSPHATASE S/P/B 62 ALT 11 AST 11 BILIRUBIN TOTAL S/P/B 0.3 ALBUMIN S/P/B 4.2 3.5 - 5.0 TOTAL PROTEIN S/P/B 7.6 GLOBULIN 3.4 05/31/2022 Default History Genericprovider LABORATORY Final Result * LIPID PANEL (05/31/2022) CHOLESTEROL 152 HDL 36 TRIGLYCERIDES 62 NON HDL CHOLESTEROL 116 LDL (CALCULATED) 102 05/31/2022 Default History Genericprovider LABORATORY Final Result * HEMOGLOBIN, GLYCOSYLATED (01/21/2021) HGB A1C 5.6 % 01/21/2021 [facility] LABORATORY Final Result * THYROID STIM HORMONE, TSH (01/21/2021) Pathologist [facility] TSH 1.31 01/21/2021 [facility] LABORATORY Final Result * CBC (OUTSIDE LAB) (01/21/2021) Pathologist [facility] WBC 8.6 HGB 11.0 HCT 35.2 PLT 268 01/21/2021 [facility] Abstract LAB-OUTSIDE/ABSTRACTED Final Result * (ABNORMAL) COMPREHENSIVE METABOLIC PANEL (01/21/2021) Pathologist [facility] SODIUM S/P/B 140 POTASSIUM S/P/B 3.8 CO2 26 CHLORIDE S/P/B 105 GLUCOSE 97 mg/dL CALCIUM S/P/B 8.8 BUN 9 CREATININE S/P/B 0.39(A) 0.5 - 1.0 EGFR AFR. AMER. 154(A) <=90 EGFR NON-AFR. AMER. 133(A) <=90 ALKALINE PHOSPHATASE S/P/B 74 ALT 9 AST 11 BILIRUBIN TOTAL S/P/B 0.2 ALBUMIN S/P/B 3.7 3.5 - 5.0 TOTAL PROTEIN S/P/B 6.9 GLOBULIN 3.2 01/21/2021 [facility] LABORAT[facility] Final Result * FOLATE (OUTSIDE LAB) (07/02/2020) Pathologist [facility] FOLATE 10.4 07/02/2020 [facility] LAB-OUTSIDE/ABSTRACTED Final Result * VITAMIN B-12 (07/02/2020) Pathologist [facility] VITAMIN B12 S/P/B 914 07/02/2020 [facility] LABORAT[facility] Final Result * FERRITIN (07/02/2020) FERRITIN 48 07/02/2020 [facility] LABORAT[facility] Final Result * IRON BINDING TEST (07/02/2020) IRON BINDING CAPACITY 310 07/02/2020 [facility] LABORAT[facility] Final Result * IRON (07/02/2020) IRON 45 07/02/2020 [facility] LABORAT[facility] Final Result * CBC (OUTSIDE LAB) (07/02/2020) WBC 9.6 HGB 11.4 HCT 35.2 PLT 303 07/02/2020 [facility] LAB-OUTSIDE/ABSTRACTED Final Result * THYROID STIM HORMONE, TSH (07/02/2020) TSH 1.24 07/02/2020 [facility] LABORAT[facility] Final Result * HEMOGLOBIN, GLYCOSYLATED (07/02/2020) HGB A1C 5.6 % 07/02/2020 [facility]AT[facility] Final Result * (ABNORMAL) COMPREHENSIVE METABOLIC PANEL (07/02/2020) SODIUM S/P/B 141 POTASSIUM S/P/B 4.0 CO2 27 CHLORIDE S/P/B 104 GLUCOSE 93 mg/dL CALCIUM S/P/B 9.2 BUN 10 CREATININE S/P/B 0.54 0.5 - 1.0 EGFR AFR. AMER. 139(A) <=90 EGFR NON-AFR. AMER. 120(A) <=90 ALKALINE PHOSPHATASE S/P/B 66 ALT 8 AST 10 BILIRUBIN TOTAL S/P/B 0.3 ALBUMIN S/P/B 4.0 3.5 - 5.0 TOTAL PROTEIN S/P/B 7.3 GLOBULIN 3.3 07/02/2020 [facility] LABORAT[facility] Final Result * LIPID PANEL (07/02/2020) CHOLESTEROL 168 HDL 42 TRIGLYCERIDES 65 NON HDL CHOLESTEROL 126 LDL (CALCULATED) 111 07/02/2020 [facility] Final Result documented in this encounter Visit Diagnoses Not on filedocumented in this encounter Care Teams Director Market Intelligence Relationship Specialty Start Date End Date Sherri Herman FNP [address] [place] [address] PCP - General NURSE PRACTITIONER 01/03/22 documented as of this encounter
--- OUTSIDE RECORDS SUMMARY | 2024-10-12 13:46 | XMS_ITS | Data Portability ---
Author Organization [facility] Address [address] [place] [address] [place] [address] Care Team Providers Care Trailer Sections Assembler Name Role Phone JUDY LEYVA Primary Care Provider Assessment Encounter Date Assessment Date Assessment LastModified by Organization Details LastModified Time 08/18/2024 08/18/2024 Annual gynecological exam performed. Patient will come back in a year unless there are new symptoms. [email or web address] Not available 07/30/2024 13:00:09 Plan of Treatment Reminders Order Date Submit Date Provider Last Modified By Organization Details Last Modified Time Details Appointments None recorded. Lab pap, IG + HR HPV - HPV regardless but if HPV is positive need subtyping 16,18/45Add ct/gc/trich 2024 025 [facility] (Lab), [address], [place], [address], 5 11:15:40 HBsAg (hepatitis B surface Ag), serum 2024 025 [facility] (Lab), [address], [place], [address], 5 13:01:15 Referral None recorded. Procedures None recorded. Surgeries None recorded. Imaging MAMMO, screening, digital, bilateral [address] [facility], [address], [place] [address], [place], [address], 03/18/202 5 04:09:58 Medication Orders metronidazo le 0.75 % (37.5 mg/5 gram) vaginal gel 2024 025 [email or web address] [facility] #[id number], [address], [place], [address], 10:18:03 Patient TargetsNo targets recorded. Patient InstructionsNo instructions recorded. Reason for Referral None Reported. Results Created Date Observation Date Name Description Value Unit Range Abnormal Flag Note LastModifiedBy Organization Detail LastModifiedTime 08/19/1908/18/2024 HBSAG /HCV/ HIV/R VA HIV antigen/anti body Nonrea ctive nonrea ctive HIV-1 antig en and HIV-1 /HIV- 2 antib odies were not detec jorge luis. No labor atory evide nce of HIV infec tion. Not Available [facility] (Lab) [address], [place], [address], 08/19/2024 13:01:15 08/19/19 25 08/18/2024 HBSAG /HCV/ HIV/R VA hepatitis C antibody Non-re active non-re active Antib odies to HCV Not Detec jorge luis, does not exclu de the possi bilit y of expos ure to HCV. Not Available [facility] (Lab) [address], [place], [address], 08/19/2024 13:01:15 08/19/19 25 08/18/2024 HBSAG /HCV/ HIV/R VA hepatitis B surface antigen Non-re active non-re active This assay was perfo rmed using [employer] n reage nts and test kits. Value s obtai lilian with other assay metho ds or kits canno t be used inter jaime eably . Not Available [facility] (Lab) [address], [place], [address], 08/19/2024 13:01:15 08/19/19 25 08/18/2024 HBSAG /HCV/ HIV/R VA RPR qualitative Nonrea ctive nonrea ctive Not Available [facility] (Lab) [address], [place], [address], 08/19/2024 13:01:15 08/19/19 25 08/18/2024 IMAGE GUIDE D PAP AND HPV REGAR DLESS image guided Pap, HPV regardless of Pap result SEE RESULT S BELOW CASE REPOR T: Cytol ogy Gynec ologi zane Repor t Case: [id number] Autho alecia elvis Provi sherri: Dermo dy, Molly , ANP, FISHERIES SPECIALIST Colle cted: 08/18 1341 Order ing Locat ion: [place] [facility] Recei trinh: 08/19 1100 First Scree n: Bert rincon, Biju beltran, CT Rescr een: Liz Velazquez ret, CT Speci men: Scree fernando Pap - Image d, Cervi x STATE MENT OF ADEQU ACY: Satis facto ry for evalu ation Trans forma tion zone compo nent absen t The absen ce of an endoc ervic al compo nent was confi rmed by an addit ional scree ner. ----- ----- ----- ----- ----- ----- ----- ----- ----- ----- ----- ----- ----- ----- ----- ----- ----- ---- FINAL DIAGN OSIS: Negat edelmira for Intra epith elial Guerrero zaidi or Zoey coleman ([facility]) . Shift in gamal sugge stive of bacte rial vagin osis. Elect shilpi cannon by HEBERT Felder ret on 2024 at 1011 CDT ----- ----- ----- ----- ----- ----- ----- ----- ----- ----- ----- ----- ----- ----- ----- ----- ----- ---- HPV RESUL TS: HPV mRNA E6/E7 : No HPV mRNA Detec jorge luis NOTE: This high risk HPV mRNA assay detec ts fourt een high- risk HPV types (16, 18, 31, 33, 35, 39, 45, 51, 52, 56, 58, 59, 66, 68) witho ut diffe renti ation . COMME NT: This speci men was revie wed by a Cytot echno logis t and/o r Patho logis t (as indic ated in this repor t) after evalu ation using the Thinp rep Imagi ng Syste m. CLINI ZANE INFOR MATIO N: Menst rual Statu s: LMP (if appli cable ): Clini zane Histo ry/Pr eviou s Pap: Type of Neopl coleen (if appli cable ): Signi fican t Clini zane Findi ngs: Other Histo ry: Hormo anisa (if appli cable ): PAP EDUCA BERENICE L NOTE: The Pap Test is a scree fernando test with an inher ent false negat edelmira rate. Liqui d-bas ed sampl ing may decre ase, but will not elimi lety, false negat edelmira resul ts. A negat edelmira resul t does not precl ude the prese nce and/o r devel opmen t of disea se, since the prese nce of abnor mal cells in the sampl e depen ds on the locat ion of the lesio n and sampl ing techn ique. Megan nued regul ar scree fernando is the best metho d of cance r preve ntion . If repor jorge luis cytol ogic findi ng do not corre late with physi zane and/o r histo rical findi ngs, furth er inves tigat ion is recom ashley d, as clini turner munoz nted. Not Available [facility] (Lab) [address], [place], [address], 08/22/2024 11:15:40 08/19/19 25 08/18/2024 TRICH OMONA S VAGIN GUILLE (RRNA ) trichomonas vaginalis ribosomal RNA (rrna) Negati ve negati ve Not Available [facility] (Lab) [address], [place], [address], 08/22/2024 11:15:40 08/19/19 25 08/18/2024 CT/GC (PINA) , THINP REP VIAL chlamydia trachomatis, PCR Negati ve negati ve Not Available [facility] (Lab) [address], [place], [address], 08/22/2024 11:15:40 08/19/19 25 08/18/2024 CT/GC (PINA) , THINP REP VIAL neisseria gonorrhoeae, PCR Negati ve negati ve Not Available [facility] (Lab) [address], [place], [address], 08/22/2024 11:15:40 Result Notes None recorded. Procedures Surgical History Date Name Laterality Status Provider Name and Address Organization Details Recorded Time 3 Date of Last Mammogram completed [facility] 08/18/2024 09:27:56 3 Date of Last Pap Smear completed [facility] 08/18/2024 09:27:56 3 Tubal Ligation completed [facility] 08/18/2024 09:27:56 Imaging Results None recorded. Procedure Notes None recorded. Medical Equipment None Reported. Allergies No known drug allergies Medications Name Sig Start Date Stop Date Status Note LastModified by Organization Details LastModified Time azithromyci n 250 mg tablet TAKE 2 TABLETS BY MOUTH TODAY, THEN TAKE 1 TABLET DAILY FOR 4 DAYS DIRECTED 08/18 completed Not Available Not Available Not Available metronidazo le 0.75 % (37.5 mg/5 gram) vaginal gel INSERT 1 APPLICATO RFUL VAGINALLY EVERY DAY active Not Available Not Available No t Available sulfamethox azole 800 mg-trimetho prim 160 mg tablet TAKE 1 TABLET BY MOUTH EVERY 12 HOURS FOR 10 DAYS 08/18 completed Not Available Not Available Not Available trazodone 100 mg tablet active Not Available Not Available Not Available mupirocin 2 % topical ointment APPLY TOPICALLY TWICE A DAY 08/18 completed Not Available Not Available Not Available ergocalcife rol (vitamin D2) 1,250 mcg (50,000 unit) capsule TAKE 1 CAPSULE BY MOUTH ONE TIME PER WEEK active Not Available Not Available No t Available ondansetron 4 mg disintegrat ing tablet DISSOLVE 1 TABLET ON THE TONGUE EVERY 6 HOURS NEEDED FOR NAUSEA AND VOMITING active Not Available Not Available No t Available sertraline 50 mg tablet TAKE 1 TABLET BY MOUTH ONCE DAILY FOR MOOD active Not Available Not Available No t Available cyclobenzap rine 5 mg tablet TAKE 1 (ONE) TABLET BY MOUTH 3 TIMES DAILY NEEDED (MUSCLE SPASMS) REASONS: NECK SPASMS/PA IN active Not Available Not Available No t Available Vitals Date Recorded Body height Body mass index (BMI) Body weight Systolic blood pressure Diastolic blood pressure Provider Name and Address Organization Details Last Updated DateTime 08/18/2024 162.56 cm 47 kg/m2 306460.3 1 g 144 mm[Hg] 98 mm[Hg] Yanira Hernandez [facility] 09:39:16 Social History Question Answer Notes LastModified by Organizat ion Details LastModified Time Do You Have An Advance Directive? No [email or web address] Information n ot available 08/18/2024 What Is Your Level Of Alcohol Consumption? Occasional [email or web address] Information not available 08/18/2024 How Many Years Have You Consumed Alcohol? 20 [email or web address] Information not available 08/18/2024 Are You Blind Or Do You Have Difficulty Seeing? No [email or web address] Information n ot available 08/18/2024 What Is Your Level Of Caffeine Consumption? Occasional [email or web address] Information not available 08/18/2024 How Much Tobacco Do You Chew? None [email or web address] Information not available 08/18/2024 In The 14 Days Before Symptom Onset, Have You Had Close Contact With A Laboratory-confirm ed COVID-19 While That Case Was Ill? No [email or web address] Information n ot available 08/18/2024 In The 14 Days Before Symptom Onset, Have You Had Close Contact With A Person Who Is Under Investigation For COVID-19 While That Person Was Ill? No [email or web address] Information not available 08/18/2024 Have You Been To An Area Known To Be High Risk For COVID-19? No [email or web address] Information not available 08/18/2024 Are You Currently Employed? Yes [email or web address] Information not available 08/18/2024 Are You Deaf Or Do You Have Serious Difficulty Hearing? No [email or web address] Information not available 08/18/2024 What Type Of Diet Are You Following? REGULAR [email or web address] Information n ot available 08/18/2024 What Is The Highest Grade Or Level Of School You Have Completed Or The Highest Degree You Have Received? 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 No [email or web address] Information not available 08/18/2024 Do You Use Protection During Sex? No [email or web address] Information not available 08/18/2024 Do You Use Your Seat Belt Or Car Seat Routinely? Yes [email or web address] Information not available 08/18/2024 Are You Sexually Active? Yes [email or web address] Information not available 08/18/2024 Do You Have Smoke And Carbon Monoxide Detectors In Your Home? Yes Information not available 08/18/2024 How Much Tobacco Do You Smoke? No [email or web address] Information not available 08/18/2024 Do You Feel Stressed (tense, Restless, Nervous, Or Anxious, Or Unable To Sleep At Night)? [id number] [email or web address] Information not available 08/18/2024 Do You Use Any Illicit Or Recreational Drugs? No [email or web address] Information not available 08/18/2024 Do You Use Sunscreen Routinely? No [email or web address] Information not available 08/18/2024 Have You Used IV Drugs? No [email or web address] Information not available 08/18/2024 Sex: Unknown Functional Status Question Answer Note LastModified by Organizat ion Details LastModified Time Do you have difficulty walking or climbing stairs? No [email or web address] Information not available 08/18/2024 Are you able to walk? [email or web address] Information not available 08/18/2024 Are you able to care for yourself? Yes [email or web address] Information not available 08/18/2024 Do you have difficulty dressing or bathing? No [email or web address] Information not available 08/18/2024 What is your exercise level? Occasional [email or web address] Information not available 08/18/2024 Mental Status None recorded. Family History Relationship Description Onset Age of this Age Resolved Age Notes LastModified by Organization Details LastModified Time Mother Heart disease [email or web address] Not available 2024 09:27:56 Mother Diabetes mellitus [email or web address] Not available 2024 09:27:56 Brother Depressive disorder [email or web address] Not available 2024 09:27:56 Medical History Condition Response Anemia Y Headaches Y Gynecological History Statement/Question Response Date of Last Mammogram 03/11/2023 Flow Heavy Date of LMP 08/01/2024 On BCP's at Conception? N N Was last menstrual period normal Y STIs/STDs N HPV Vaccine N Duration of Flow (days) 6 Current Control Method None Age at First Child 25 Frequency of Cycle (Q days) 30 Sexually Active? Y Menses Monthly Y Age of first menstrual cycle 13 Date of Last Pap Smear 03/10/2023 Sexual Problems? N Desired Control Method None LMP Approximate N Obstetrics History GPAL:G 3 P 2 0 0 2 Type Value Full Term 2 Living 2 Total 3 Past Encounters Encounter ID Performer Location Encounter Start Date Encounter Closed Date Diagnosis/Indication Diagnosis SNOMED-CT Code Diagnosis ICD10 Code Diagnosis Note [id number] Andrzej Morales MD [facility] [address] [address] 08/18/2024 09:20:42 08/18/2024 10:25:26 Gynecologic examination 19561888 Z01.419 Annual gynecologi zane exam performed. Patient will come back in a year unless there are new symptoms. Suggest Calcium with Vitamin D if not eating in diet. Patient advised to get annual flu shot. Recommend yearly physicals and perform monthly breast exams. Genetic testing is available for patients with family history of cancer. Engage in safe sexual practices, use condoms. Encouraged to have daily exercise. Avoid tobacco and illicit drugs, moderation of alcohol. If BMI greater than 25 dietary consult advised. If you have any questions please call or email. mammogram- order given, pt to schedule colon cancer screening - n/a DEXA scan- n/a Pap smear- pap w/ HPV collected laboratory evaluation - PCP STI testing - requested Vaginal discharge 277792 006 N89.8 Discussed empirical treatment with metronidaz ole for suspected BV based on reported symptoms and physical exam findings.D iscussed vulvar care guidelines in addition to laundry/sk in irritants to avoid.Fam mmended boric acid capsules - insert one capsule vaginally at H.S. after period, intercours e, and/or with symptoms. Venereal d isease screening 695139367 Z11.3 Pt requested STI testing.Di scussed the various types of STDs, related symptoms and the potential consequenc es (including effects on fertility) of STD infections . Reviewed ways to limit exposure and prevention techniques . Screening mammography 24 726683 Z12.31 Menorrhagia 383720313 N9 2.0 Today we discussed multiple options for menorrhagi a including: IUDs, Patch, Ring, Pills, Nexplanon, Lysteda; Endometria l ablation (requires MD consult). We discussed if any are contraindi cated with her current health Hx.Patient may be interested in Mirena IUD as she has had this method in the past. Brochure given. Discussed the risks, benefits, and alternativ es to Mirena IUD. Discussed insertion and removal process. Discussed bleeding profile. Questions answered. Pt to call office to schedule if she chooses to get Mirena IUD. Health Concerns Section Related Observation LastModified by Organization Detai ls LastModified Time None Recorded Concern Status LastModified by Organization Details LastModified Time None Recorded Advance Directives Directive N: Payers Encounter Date Sequence Insurance Name Policy Number Policy Pitts Covered Member ID Pitts Member ID Guarantor Name 08/18/2024 1 [id number] [id number] Sylvester Ogden [id number] Sylvester Ogden Notes Date Note Type Note Provider Name and Address Organization Details Recorded Time 08/18/2024 text/html Annual GYNReport ed bypatient.Menstrual cycle:Menorrhagia Urinary symptoms:No hematuria; No incontinence Vulva:No genital lesion Vagina:Foul-smellin g Breast:No breast pain; No breast lump; No nipple discharge Current Contraception:Tubal ligation Sexual complaints:No sexual complaints; No pain during intercourse; Normal libido Menopausal Symptoms:No menopausal symptoms; Normal vaginal lubrication Psychological symptoms:No depression; No anxiety; No PMDD Preventive measures:Encourage self breast examination; Encourage regular exercise; Encourage no tobacco use; Encourage regular mammograms starting age 40 New patient here to est. [facility].Patient c/o fishy vaginal odor that occurs throughout the month. Patient uses boric acid suppositories to help with the odor. Patient denies vaginal discharge, itching, burning, GI/ sx.Hx tubal ligation.Patient states that cycles are q28-30 days, last 5-6 days with heavy bleeding for the first 4 days. Patient states that she changes pads/tampons q1-3 hours on heavy days. Patient does have hx of iron deficiency anemia that has been diet controlled currently. PCP orders labs routinely per pt. MOLLY PURVIS, DANIELA [address], [place], [address], [facility] 08/18/2024 10:24:43 OBGyn Episode Ob Episode Information Episode Created Date Number of Fetuses Patient Bloodtype Patient rh Status Prepregnancy Weight lbs Domestic Partner Domestic Partner Phone Father Name Digital Associate Media Director Status 08/19/19 25 1 CLOSED Fetus Data First Name Last Name Admitted to NICU Weight (g) Sex Living Outcome Pediatric Complications Fetus ID Race Codes Race Delivery Type Demise [id number] Destin Calculation Initial Destin Date Initial Exam Date Initial Exam Provider Initial Ultrasound Date Last Menstrual Period Date Ultra Sound Weeks Gestation 0 Eighteen To Twenty Week Destin Update Ultra Sound Date Fundal Height At Umbil Quickening Date Ultra Sound Latest Weeks Gestation Final Destin Confirmed By Final Destin Confirmed Date Final Destin Date Ultra Sound Latest Days Gestation 0 0 Menstrual History Last Menstrual Date Menses Monthly On Bcp Conception Prior Menses Frequency Hcg Plus Date Menarche Onset Age Delivery Information Delivery Date Delivery Type Labor Anesthesia Weeks Gestation Incision Type Labor Labor Length Hrs Delivered By Post Complications Tubal Sterilization Discharge Date Comments 5 Discharge Information Feeding Method Contraceptive Method Maternal HG B and HCT Levels Ob Episode Information Episode Created Date Number of Fetuses Patient Bloodtype Patient rh Status Prepregnancy Weight lbs Domestic Partner Domestic Partner Phone Father Name Digital Associate Media Director Status 08/19/19 25 1 CLOSED Fetus Data First Name Last Name Admitted to NICU Weight (g) Sex Living Outcome Pediatric Complications Fetus ID Race Codes Race Delivery Type 3373.36 3704 M Full Term [id number] Vaginal Delivery Destin Calculation Initial Destin Date Initial Exam Date Initial Exam Provider Initial Ultrasound Date Last Menstrual Period Date Ultra Sound Weeks Gestation 0 Eighteen To Twenty Week Destin Update Ultra Sound Date Fundal Height At Umbil Quickening Date Ultra Sound Latest Weeks Gestation Final Destin Confirmed By Final Destin Confirmed Date Final Destin Date Ultra Sound Latest Days Gestation 0 0 Menstrual History Last Menstrual Date Menses Monthly On Bcp Conception Prior Menses Frequency Hcg Plus Date Menarche Onset Age Delivery Information Delivery Date Delivery Type Labor Anesthesia Weeks Gestation Incision Type Labor Labor Length Hrs Delivered By Post Complications Tubal Sterilization Discharge Date Comments 3 38 Discharge Information Feeding Method Contraceptive Method Maternal HG B and HCT Levels Ob Episode Information Episode Created Date Number of Fetuses Patient Bloodtype Patient rh Status Prepregnancy Weight lbs Domestic Partner Domestic Partner Phone Father Name Digital Associate Media Director Status 08/19/19 25 1 CLOSED Fetus Data First Name Last Name Admitted to NICU Weight (g) Sex Living Outcome Pediatric Complications Fetus ID Race Codes Race Delivery Type 3628.73 6 M Full Term [id number] Vaginal Delivery Destin Calculation Initial Destin Date Initial Exam Date Initial Exam Provider Initial Ultrasound Date Last Menstrual Period Date Ultra Sound Weeks Gestation 0 Eighteen To Twenty Week Destin Update Ultra Sound Date Fundal Height At Umbil Quickening Date Ultra Sound Latest Weeks Gestation Final Destin Confirmed By Final Destin Confirmed Date Final Destin Date Ultra Sound Latest Days Gestation 0 0 Menstrual History Last Menstrual Date Menses Monthly On Bcp Conception Prior Menses Frequency Hcg Plus Date Menarche Onset Age Delivery Information Delivery Date Delivery Type Labor Anesthesia Weeks Gestation Incision Type Labor Labor Length Hrs Delivered By Post Complications Tubal Sterilization Discharge Date Comments 6 38 Discharge Information Feeding Method Contraceptive Method Maternal HG B and HCT Levels
--- OUTSIDE RECORDS SUMMARY | 2024-10-12 13:46 | XMS_ITS | Data Portability ---
Author Organization [place] - [facility] , [facility] Address [address] [place] [address] Assessment Encounter Date Assessment Date Assessment LastModified by Organization Details LastModified Time 09/06/2024 09/06/2024 Differential diagnosis includes obesity with other co-morbid conditions. Discussed options with pt. Due to medications she is currently taking, Wellbutrin is not recommended. Reviewed newer injectable meds (pt made aware that we do not RX these at onset of visit), which do not appear to be contraindicated for her and will likely provide the desired results, although she will likely need to use these for an extended period to maintain weight loss. Recommend pt find a new PCP who is willing to RX these for her. She understands and will work on this. If any medications were discussed (either prescription or [id number]), please review any potential side effects before taking the medication. We are available 31/12 for any questions. Diagnosis and treatment plan were discussed and they voiced agreement and understanding of the plan. [email or web address] Not available 09/06/2024 14:51:21 Plan of Treatment Reminders Order Date Submit Date Provider Last Modified By Organization Details Last Modified Time Details Appointments None record ed. Lab None record ed. Referral None record ed. Procedures None record ed. Surgeries None record ed. Imaging None record ed. Medication Orders None record ed. Patient TargetsNo targets recorded. Patient Instructions Encounter Date Encounter Id Patient Instructions Last Modified By Organization Details Last Modified Time 09/06/2024 [id number] When You Want to Lose Weight: Care Instructions [email or web address] Not available 09/06/2024 14:51:22 Reason for Referral None Reported. Problems Name Problem SNOMED Code Status Onset Date Resolution Date Notes Provider Name and Address Organization Details Recorded Time Anxiety 51574697 Active 2024 JOSE MANUEL Castillo [address] [facility],[address], [place], [address], [place] [facility] 14:36:57 History of idiopathic intracrani al hypertensi on [id number] 43204 Active 2024 JOSE MANUEL Castillo 1 [facility] [address], [place], [address], [place] [facility] 14:40:20 Problem Notes None recorded. Medical Equipment None Reported. Allergies Allergen ID Allergen Name Allergen Category Reaction Reaction Severity Criticality Documentation Date Start Date Code Code System Note Provider Name and Address Organization Details Recorded Time 025829 adhesive tape environme nt,medica tion Not available Not available Not available 09/06/2024 [id number] UNK Not Available [facility] Medications Name Sig Start Date Stop Date Status Note LastModified by Organization Details LastModified Time acetazolamide ER 500 mg capsule,extended release active ADDED BY PATIENT : 3 caps 2x a day for 7days, then 4 caps 2x a day for 7days then stay at that dosage Not Available Not Available Not Available ondansetron 4 mg disintegrating tablet active ADDED BY PATIENT : 1tab. Every 6 hrs as needed Not Available Not Available Not Available sertraline 50 mg tablet active ADDED BY PATIENT : 1tab daily Not Available Not Available Not Available cyclobenzaprine active ADDE D BY PATIENT : 5mg 1 tab 3x daily as needed Not Available Not Available Not Available Vitals None Recorded Social History None recorded. Functional Status None recorded. Mental Status None recorded. Family History Nothing Reported. Medical History No medical history recorded. Gynecological HistoryNo gynecological history recorded. Obstetrics History GPAL:G 0 P 0 0 0 0 Past Encounters Encounter ID Performer Location Encounter Start Date Encounter Closed Date Diagnosis/Indication Diagnosis SNOMED-CT Code Diagnosis ICD10 Code Diagnosis Note [id number] JOSE MANUEL Castillo [facility], [place] [address] [place] [address] 09/06/2024 14:35:55 09/06/2024 14:52:47 Overweight 098611192 E66.3 Health Concerns Section Related Observation LastModified by Organization Detai ls LastModified Time None Recorded Concern Status LastModified by Organization Details LastModified Time None Recorded Advance Directives Directive None Recorded Payers Encounter Date Sequence Insurance Name Policy Number Policy Pitts Covered Member ID Pitts Member ID Guarantor Name 09/06/2024 1 SUREST [id number] Sylvester Ogden [id number] Sylvester Ogden 09/06/2024 3 *SELF PAY* [id number] Sylvester Ogden [id number] Sylvester Ogden Notes Date Note Type Note Provider Name and Address Organization Details Recorded Time 09/06/2024 text/html The patient was greeted. Their identity, , and location was confirmed. Their verbal consent for evaluation and treatment via telemedicine was obtained. Past documents/visits, if available, were reviewed along with allergies, current meds and med hx. Clinician attests she is physically located in the following state at the time of visit: [place] ROS: Pt wanting to discuss weight loss management. She has never tried anything RX for this but states I have to lose weight . She does have a PCP but they will not RX meds for weight loss. JOSE MANUEL Castillo [address] [place] [address] [address], [address], [facility] - [facility] 09/06/2024 14:51:26 OBGyn Episode No OBEpisode recorded.
--- NOTE | 2024-10-12 13:47 | ED_ITS ---
HPI - Chest Pain General Chief Complaint: Chest Pain <Molly De Anda PA-C - Last Filed: 10/14/24 09:13> Stated Complaint: lower back pain <Molly De Anda PA-C - Last Filed: 10/14/24 09:13> Time Seen by Provider: 10/12/24 13:47 <Molly De Anda PA-C - Last Filed: 10/14/24 09:13> Focused HPI: This is a 44 year old female that presents to the ER for flank pain. Reports radiation to her abdomen. Also reports chest pain. Reports this has been ongoing for a couple of weeks. It has been more consistent recently. Reports some diarrhea and shortness of breath. Denies fever, vomiting, dysuria, hematuria. GENERAL: Well-appearing, well-nourished, and in no acute distress. HEAD: Normocephalic, atraumatic. CHEST: Clear to auscultation. ?No respiratory distress. HEART: Regular rate and rhythm.? NEURO: ?Alert and oriented x3. Patient screened in triage and initial orders placed.? ?Additional care and disposition to be based upon?diagnostic testing and treatment. <Molly De Anda PA-C - Last Filed: 10/14/24 09:13> History of Present Illness HPI narrative: 44-year-old female presenting for flank and abdominal pain. States that she has had intermittent flank pain that radiates around to her abdomen for the last couple of weeks. States that she also has burning pain that goes up her chest especially when lying down. She has been having to sleep sitting up due to this burning pain. States that she eats a pretty healthy diet, low-sodium and low processed food. She did have an episode of nausea last week but no vomiting. She has been having diarrhea, no melena or hematochezia. Denies dysuria, hematuria, fevers. <Daily Ojeda MD - Last Filed: 10/13/24 09:01> Related Data Allergies/Adverse Reactions: Allergies Allergy/AdvReac Type Severity Reaction Status Date / Time No Known Allergies Allergy Verified 10/12/24 13:13 <Molly De Anda PA-C - Last Filed: 10/14/24 09:13> Review of Systems 2 Review of Systems: All systems reviewed & are unremarkable except as noted in HPI and below <Daily Ojeda MD - Last Filed: 10/13/24 09:01> [facility] Past Medical History Medical History: Medical History Chiari malformation UTI (urinary tract infection) Sinusitis <Molly De Anda PA-C - Last Filed: 10/14/24 09:13> Surgical History Surgical History: Surgical History H/O tubal ligation <Molly De Anda PA-C - Last Filed: 10/14/24 09:13> Social History Social History: Social History Smoking status: Never smoker Alcohol intake: never Living arrangements: with family Gender identity (if verbalized by the patient): Female <Molly De Anda PA-C - Last Filed: 10/14/24 09:13> Exam 2 Narrative: GENERAL: Well-appearing and in no acute distress. HEAD: Normocephalic, atraumatic. EYES: PERRLA and EOMI. ENT: Mucous membranes moist. NECK: Supple. CHEST: Clear to auscultation. No respiratory distress. HEART: Regular rate and rhythm. no chest wall tenderness ABDOMEN: Soft, LLQ tenderness w/o guarding or rebound EXTREMITIES: Normal range of motion SKIN: Warm, dry, no rash. NEURO: Alert and oriented x3. PSYCH: Normal mood and affect. <Daily Ojeda MD - Last Filed: 10/13/24 09:01> Course Vital Signs Vital signs: Vital Signs Temperature 98.4 F 10/12/24 13:35 Pulse Rate 97 10/12/24 13:35 Respiratory Rate 16 10/12/24 13:35 Blood Pressure 124/76 10/12/24 13:35 Pulse Oximetry 100 10/12/24 13:35 Oxygen Delivery Room Air 10/12/24 13:35 Temperature 98.4 F 10/12/24 13:35 Pulse Rate 88 10/12/24 20:35 Respiratory Rate 14 10/12/24 20:35 Blood Pressure 111/68 10/12/24 20:35 Pulse Oximetry 100 10/12/24 20:35 Oxygen Delivery Room Air 10/12/24 13:35 <Molly De Anda PA-C - Last Filed: 10/14/24 09:13> Vital Signs Temperature 98.4 F 10/12/24 13:35 Pulse Rate 97 10/12/24 13:35 Respiratory Rate 16 10/12/24 13:35 Blood Pressure 124/76 10/12/24 13:35 Pulse Oximetry 100 10/12/24 13:35 Oxygen Delivery Room Air 10/12/24 13:35 Temperature 98.4 F 10/12/24 13:35 Pulse Rate 88 10/12/24 20:35 Respiratory Rate 14 10/12/24 20:35 Blood Pressure 111/68 10/12/24 20:35 Pulse Oximetry 100 10/12/24 20:35 Oxygen Delivery Room Air 10/12/24 13:35 <Daily Ojeda MD - Last Filed: 10/13/24 09:01> Vital Signs Temperature 98.4 F 10/12/24 13:35 Pulse Rate 97 10/12/24 13:35 Respiratory Rate 16 10/12/24 13:35 Blood Pressure 124/76 10/12/24 13:35 Pulse Oximetry 100 10/12/24 13:35 Oxygen Delivery Room Air 10/12/24 13:35 Temperature 98.4 F 10/12/24 13:35 Pulse Rate 88 10/12/24 20:35 Respiratory Rate 14 10/12/24 20:35 Blood Pressure 111/68 10/12/24 20:35 Pulse Oximetry 100 10/12/24 20:35 Oxygen Delivery Room Air 10/12/24 13:35 <Romi Mcgrath MD - Last Filed: 10/12/24 20:57> MDM - Chest Pain MDM Narrative Medical decision making narrative: 44-year-old female presenting with abdominal, flank, chest pain. Vitals wnl. EKG per my interpretation w/ normal sinus rhythm, no ST elevations or depressions. Labs within acceptable limits, including 2- troponins. CT abdomen/pelvis showing left renal without obvious occlusion, otherwise unremarkable. Suspect pt's symptoms related to GERD/indigestion given the burning pain worse with laying down. Findings and diagnosis discussed with patient and at bedside. She is in no distress, no new pain, agreeable to outpatient management with return precautions and follow-up to primary care doctor. Prescriptions provided. < Daily Ojeda MD - Last Filed: 10/13/24 09:01> 44-year-old female presenting with abdominal, flank, chest pain. Labs within acceptable limits, including 2- troponins, CT abdomen/pelvis showing left renal without obvious occlusion, otherwise unremarkable. Findings and diagnosis discussed with patient and at bedside. She is in no distress, no new pain, agreeable to outpatient management with return precautions and follow-up to primary care doctor. Prescriptions provided. < Romi Mcgrath MD - Last Filed: 10/12/24 20:57> Differential Diagnosis Differential diagnosis: Likely atypical chest pain, chest pain, biliary colic and other (GERD, esophagitis ) <Daily Ojeda MD - Last Filed: 10/13/24 09:01> Medical Records Data Attestation: I reviewed the patient's medical records. <Daily Ojeda MD - Last Filed: 10/13/24 09:01> Lab Data Attestation: I reviewed the patient's lab results. <Daily Ojeda MD - Last Filed: 10/13/24 09:01> Result diagrams: 10/12/24 16:18 10/12/24 16:18 <Molly De Anda PA-C - Last Filed: 10/14/24 09:13> Labs: Lab Results 10/12/24 10/12/24 10/12/24 Range/Units 14:59 15:02 16:18 WBC 7.4 (4.5-10.0) K/mm3 RBC 4.29 (4.2-5.4) M/mm3 Hgb 11.5 L (12.0-15.0) g/dL Hct 35.5 L (37.0-47.0) % MCV 82.8 (80-100) fl MCH 26.8 (26-34) pg MCHC 32.4 (32-36) g/dl RDW 16.2 H (11.5-14.5) % Plt Count 279 (150-375) k/mm3 MPV 9.2 (7.4-10.4) fl Immature Gran % (Auto) 0.1 (0-0.5) % Neut % (Auto) 60.8 (45.5-73.1) % Lymph % (Auto) 30.4 (18.3-44.2) % Harmon % (Auto) 7.7 (2.6-8.5) % Eos % (Auto) 0.5 (0-4.4) % Baso % (Auto) 0.5 (0.2-1.2) % Lymph # (Auto) 2.26 (0.9-3.2) K/mm3 [place] # (Auto) 0.6 (0.1-0.6) K/mm3 Eos # (Auto) 0.0 (0-0.3) K/mm3 Baso # (Auto) 0.0 (0.0-0.1) K/mm3 Abs Immat Gran (auto) 0.01 (0.00-0.031) K/mm3 Absolute Neuts (auto) 4.5 (1.3-6.7) K/mm3 Absolute Nucleated RBC 0.000 (0.0-0.012) K/mm3 Nucleated RBC % 0.0 (0.0-0.2) % PT 14.3 (11.1-14.7) Seconds INR 1.1 APTT 26.3 (22.3-36.8) Seconds Sodium 140 (137-145) mmol/L Potassium 3.6 (3.4-5.0) mmol/L Chloride 110 H (98-107) mmol/L Carbon Dioxide 17 L (22-30) mmol/L Anion Gap 13 H (4-12) mmol/L BUN 6 L (7-17) mg/dL Creatinine 0.57 L (0.7-1.0) mg/dL Estim Creat Clear Calc 135 ml/min Estimated GFR > 60 (59 - ) Glucose 89 (65-110) mg/dL Calcium 9.1 (8.4-10.2) mg/dL Total Bilirubin 0.4 (0.2-1.3) mg/dL AST 23 (14-36) U/L ALT 16 (6-35) U/L Alkaline Phosphatase 76 (38-126) U/L Troponin I < 0.012 (0.000-0.034) ng/mL Total Protein 9.0 H (6.3-8.2) g/dL Albumin 4.7 (3.5-5.1) g/dL Lipase 193 (23-300) U/L Urine Color Yellow (Yellow) Urine Appearance Clear (Clear) Urine pH 7.5 (5.0-9.0) Ur Specific [place] 1.004 (1.001-1.035) Urine Protein Negative (Negative) mg/dL Urine Glucose (UA) Negative (Negative) mg/dL Urine Ketones Negative (Negative) mg/dL Ur Blood (Man) 1+ H (Negative) Urine Nitrate Negative (Negative) Urine Bilirubin Negative (Negative) Urine Urobilinogen 0.2 (<2.0) mg/dL Leukocyte Esterase Rfl Trace H (Negative) DAISY/UL Urine RBC 6-10 H (0-2) /hpf Urine WBC 0-5 (0-3) /hpf Ur Squamous Epith Cells None seen (Few) /hpf Urine Bacteria None seen /hpf Urine Casts 0-2 POC Urine HCG, Qual Negative (Negative) 10/12/24 Range/Units 19:16 WBC (4.5-10.0) K/mm3 RBC (4.2-5.4) M/mm3 Hgb (12.0-15.0) g/dL Hct (37.0-47.0) % MCV (80-100) fl MCH (26-34) pg MCHC (32-36) g/dl RDW (11.5-14.5) % Plt Count (150-375) k/mm3 MPV (7.4-10.4) fl Immature Gran % (Auto) (0-0.5) % Neut % (Auto) (45.5-73.1) % Lymph % (Auto) (18.3-44.2) % Harmon % (Auto) (2.6-8.5) % Eos % (Auto) (0-4.4) % Baso % (Auto) (0.2-1.2) % Lymph # (Auto) (0.9-3.2) K/mm3 Harmon # (Auto) (0.1-0.6) K/mm3 Eos # (Auto) (0-0.3) K/mm3 Baso # (Auto) (0.0-0.1) K/mm3 Abs Immat Gran (auto) (0.00-0.031) K/mm3 Absolute Neuts (auto) (1.3-6.7) K/mm3 Absolute Nucleated RBC (0.0-0.012) K/mm3 Nucleated RBC % (0.0-0.2) % PT (11.1-14.7) Seconds INR APTT (22.3-36.8) Seconds Sodium (137-145) mmol/L Potassium (3.4-5.0) mmol/L Chloride (98-107) mmol/L Carbon Dioxide (22-30) mmol/L Anion Gap (4-12) mmol/L BUN (7-17) mg/dL Creatinine (0.7-1.0) mg/dL Estim Creat Clear Calc ml/min Estimated GFR (59 - ) Glucose (65-110) mg/dL Calcium (8.4-10.2) mg/dL Total Bilirubin (0.2-1.3) mg/dL AST (14-36) U/L ALT (6-35) U/L Alkaline Phosphatase (38-126) U/L Troponin I < 0.012 (0.000-0.034) ng/mL Total Protein (6.3-8.2) g/dL Albumin (3.5-5.1) g/dL Lipase (23-300) U/L Urine Color (Yellow) Urine Appearance (Clear) Urine pH (5.0-9.0) Ur Specific [place] (1.001-1.035) Urine Protein (Negative) mg/dL Urine Glucose (UA) (Negative) mg/dL Urine Ketones (Negative) mg/dL Ur Blood (Man) (Negative) Urine Nitrate (Negative) Urine Bilirubin (Negative) Urine Urobilinogen (<2.0) mg/dL Leukocyte Esterase Rfl (Negative) DAISY/UL Urine RBC (0-2) /hpf Urine WBC (0-3) /hpf Ur Squamous Epith Cells (Few) /hpf Urine Bacteria /hpf Urine Casts POC Urine HCG, Qual (Negative) <Molly De Anda PA-C - Last Filed: 10/14/24 09:13> Lab Results 10/12/24 10/12/24 10/12/24 Range/Units 14:59 15:02 16:18 WBC 7.4 (4.5-10.0) K/mm3 RBC 4.29 (4.2-5.4) M/mm3 Hgb 11.5 L (12.0-15.0) g/dL Hct 35.5 L (37.0-47.0) % MCV 82.8 (80-100) fl MCH 26.8 (26-34) pg MCHC 32.4 (32-36) g/dl RDW 16.2 H (11.5-14.5) % Plt Count 279 (150-375) k/mm3 MPV 9.2 (7.4-10.4) fl Immature Gran % (Auto) 0.1 (0-0.5) % Neut % (Auto) 60.8 (45.5-73.1) % Lymph % (Auto) 30.4 (18.3-44.2) % Harmon % (Auto) 7.7 (2.6-8.5) % Eos % (Auto) 0.5 (0-4.4) % Baso % (Auto) 0.5 (0.2-1.2) % Lymph # (Auto) 2.26 (0.9-3.2) K/mm3 Harmon # (Auto) 0.6 (0.1-0.6) K/mm3 Eos # (Auto) 0.0 (0-0.3) K/mm3 Baso # (Auto) 0.0 (0.0-0.1) K/mm3 Abs Immat Gran (auto) 0.01 (0.00-0.031) K/mm3 Absolute Neuts (auto) 4.5 (1.3-6.7) K/mm3 Absolute Nucleated RBC 0.000 (0.0-0.012) K/mm3 Nucleated RBC % 0.0 (0.0-0.2) % PT 14.3 (11.1-14.7) Seconds INR 1.1 APTT 26.3 (22.3-36.8) Seconds Sodium 140 (137-145) mmol/L Potassium 3.6 (3.4-5.0) mmol/L Chloride 110 H (98-107) mmol/L Carbon Dioxide 17 L (22-30) mmol/L Anion Gap 13 H (4-12) mmol/L BUN 6 L (7-17) mg/dL Creatinine 0.57 L (0.7-1.0) mg/dL Estim Creat Clear Calc 135 ml/min Estimated GFR > 60 (59 - ) Glucose 89 (65-110) mg/dL Calcium 9.1 (8.4-10.2) mg/dL Total Bilirubin 0.4 (0.2-1.3) mg/dL AST 23 (14-36) U/L ALT 16 (6-35) U/L Alkaline Phosphatase 76 (38-126) U/L Troponin I < 0.012 (0.000-0.034) ng/mL Total Protein 9.0 H (6.3-8.2) g/dL Albumin 4.7 (3.5-5.1) g/dL Lipase 193 (23-300) U/L Urine Color Yellow (Yellow) Urine Appearance Clear (Clear) Urine pH 7.5 (5.0-9.0) Ur Specific [place] 1.004 (1.001-1.035) Urine Protein Negative (Negative) mg/dL Urine Glucose (UA) Negative (Negative) mg/dL Urine Ketones Negative (Negative) mg/dL Ur Blood (Man) 1+ H (Negative) Urine Nitrate Negative (Negative) Urine Bilirubin Negative (Negative) Urine Urobilinogen 0.2 (<2.0) mg/dL Leukocyte Esterase Rfl Trace H (Negative) DAISY/UL Urine RBC 6-10 H (0-2) /hpf Urine WBC 0-5 (0-3) /hpf Ur Squamous Epith Cells None seen (Few) /hpf Urine Bacteria None seen /hpf Urine Casts 0-2 POC Urine HCG, Qual Negative (Negative) 10/12/24 Range/Units 19:16 WBC (4.5-10.0) K/mm3 RBC (4.2-5.4) M/mm3 Hgb (12.0-15.0) g/dL Hct (37.0-47.0) % MCV (80-100) fl MCH (26-34) pg MCHC (32-36) g/dl RDW (11.5-14.5) % Plt Count (150-375) k/mm3 MPV (7.4-10.4) fl Immature Gran % (Auto) (0-0.5) % Neut % (Auto) (45.5-73.1) % Lymph % (Auto) (18.3-44.2) % Harmon % (Auto) (2.6-8.5) % Eos % (Auto) (0-4.4) % Baso % (Auto) (0.2-1.2) % Lymph # (Auto) (0.9-3.2) K/mm3 [place] # (Auto) (0.1-0.6) K/mm3 Eos # (Auto) (0-0.3) K/mm3 Baso # (Auto) (0.0-0.1) K/mm3 Abs Immat Gran (auto) (0.00-0.031) K/mm3 Absolute Neuts (auto) (1.3-6.7) K/mm3 Absolute Nucleated RBC (0.0-0.012) K/mm3 Nucleated RBC % (0.0-0.2) % PT (11.1-14.7) Seconds INR APTT (22.3-36.8) Seconds Sodium (137-145) mmol/L Potassium (3.4-5.0) mmol/L Chloride (98-107) mmol/L Carbon Dioxide (22-30) mmol/L Anion Gap (4-12) mmol/L BUN (7-17) mg/dL Creatinine (0.7-1.0) mg/dL Estim Creat Clear Calc ml/min Estimated GFR (59 - ) Glucose (65-110) mg/dL Calcium (8.4-10.2) mg/dL Total Bilirubin (0.2-1.3) mg/dL AST (14-36) U/L ALT (6-35) U/L Alkaline Phosphatase (38-126) U/L Troponin I < 0.012 (0.000-0.034) ng/mL Total Protein (6.3-8.2) g/dL Albumin (3.5-5.1) g/dL Lipase (23-300) U/L Urine Color (Yellow) Urine Appearance (Clear) Urine pH (5.0-9.0) Ur Specific [place] (1.001-1.035) Urine Protein (Negative) mg/dL Urine Glucose (UA) (Negative) mg/dL Urine Ketones (Negative) mg/dL Ur Blood (Man) (Negative) Urine Nitrate (Negative) Urine Bilirubin (Negative) Urine Urobilinogen (<2.0) mg/dL Leukocyte Esterase Rfl (Negative) DAISY/UL Urine RBC (0-2) /hpf Urine WBC (0-3) /hpf Ur Squamous Epith Cells (Few) /hpf Urine Bacteria /hpf Urine Casts POC Urine HCG, Qual (Negative) <Daily Ojeda MD - Last Filed: 10/13/24 09:01> Lab Results 10/12/24 10/12/24 10/12/24 Range/Units 14:59 15:02 16:18 WBC 7.4 (4.5-10.0) K/mm3 RBC 4.29 (4.2-5.4) M/mm3 Hgb 11.5 L (12.0-15.0) g/dL Hct 35.5 L (37.0-47.0) % MCV 82.8 (80-100) fl MCH 26.8 (26-34) pg MCHC 32.4 (32-36) g/dl RDW 16.2 H (11.5-14.5) % Plt Count 279 (150-375) k/mm3 MPV 9.2 (7.4-10.4) fl Immature Gran % (Auto) 0.1 (0-0.5) % Neut % (Auto) 60.8 (45.5-73.1) % Lymph % (Auto) 30.4 (18.3-44.2) % Harmon % (Auto) 7.7 (2.6-8.5) % Eos % (Auto) 0.5 (0-4.4) % Baso % (Auto) 0.5 (0.2-1.2) % Lymph # (Auto) 2.26 (0.9-3.2) K/mm3 [place] # (Auto) 0.6 (0.1-0.6) K/mm3 Eos # (Auto) 0.0 (0-0.3) K/mm3 Baso # (Auto) 0.0 (0.0-0.1) K/mm3 Abs Immat Gran (auto) 0.01 (0.00-0.031) K/mm3 Absolute Neuts (auto) 4.5 (1.3-6.7) K/mm3 Absolute Nucleated RBC 0.000 (0.0-0.012) K/mm3 Nucleated RBC % 0.0 (0.0-0.2) % PT 14.3 (11.1-14.7) Seconds INR 1.1 APTT 26.3 (22.3-36.8) Seconds Sodium 140 (137-145) mmol/L Potassium 3.6 (3.4-5.0) mmol/L Chloride 110 H (98-107) mmol/L Carbon Dioxide 17 L (22-30) mmol/L Anion Gap 13 H (4-12) mmol/L BUN 6 L (7-17) mg/dL Creatinine 0.57 L (0.7-1.0) mg/dL Estim Creat Clear Calc 135 ml/min Estimated GFR > 60 (59 - ) Glucose 89 (65-110) mg/dL Calcium 9.1 (8.4-10.2) mg/dL Total Bilirubin 0.4 (0.2-1.3) mg/dL AST 23 (14-36) U/L ALT 16 (6-35) U/L Alkaline Phosphatase 76 (38-126) U/L Troponin I < 0.012 (0.000-0.034) ng/mL Total Protein 9.0 H (6.3-8.2) g/dL Albumin 4.7 (3.5-5.1) g/dL Lipase 193 (23-300) U/L Urine Color Yellow (Yellow) Urine Appearance Clear (Clear) Urine pH 7.5 (5.0-9.0) Ur Specific [place] 1.004 (1.001-1.035) Urine Protein Negative (Negative) mg/dL Urine Glucose (UA) Negative (Negative) mg/dL Urine Ketones Negative (Negative) mg/dL Ur Blood (Man) 1+ H (Negative) Urine Nitrate Negative (Negative) Urine Bilirubin Negative (Negative) Urine Urobilinogen 0.2 (<2.0) mg/dL Leukocyte Esterase Rfl Trace H (Negative) DAISY/UL Urine RBC 6-10 H (0-2) /hpf Urine WBC 0-5 (0-3) /hpf Ur Squamous Epith Cells None seen (Few) /hpf Urine Bacteria None seen /hpf Urine Casts 0-2 POC Urine HCG, Qual Negative (Negative) 10/12/24 Range/Units 19:16 WBC (4.5-10.0) K/mm3 RBC (4.2-5.4) M/mm3 Hgb (12.0-15.0) g/dL Hct (37.0-47.0) % MCV (80-100) fl MCH (26-34) pg MCHC (32-36) g/dl RDW (11.5-14.5) % Plt Count (150-375) k/mm3 MPV (7.4-10.4) fl Immature Gran % (Auto) (0-0.5) % Neut % (Auto) (45.5-73.1) % Lymph % (Auto) (18.3-44.2) % [place] % (Auto) (2.6-8.5) % Eos % (Auto) (0-4.4) % Baso % (Auto) (0.2-1.2) % Lymph # (Auto) (0.9-3.2) K/mm3 [place] # (Auto) (0.1-0.6) K/mm3 Eos # (Auto) (0-0.3) K/mm3 Baso # (Auto) (0.0-0.1) K/mm3 Abs Immat Gran (auto) (0.00-0.031) K/mm3 Absolute Neuts (auto) (1.3-6.7) K/mm3 Absolute Nucleated RBC (0.0-0.012) K/mm3 Nucleated RBC % (0.0-0.2) % PT (11.1-14.7) Seconds INR APTT (22.3-36.8) Seconds Sodium (137-145) mmol/L Potassium (3.4-5.0) mmol/L Chloride (98-107) mmol/L Carbon Dioxide (22-30) mmol/L Anion Gap (4-12) mmol/L BUN (7-17) mg/dL Creatinine (0.7-1.0) mg/dL Estim Creat Clear Calc ml/min Estimated GFR (59 - ) Glucose (65-110) mg/dL Calcium (8.4-10.2) mg/dL Total Bilirubin (0.2-1.3) mg/dL AST (14-36) U/L ALT (6-35) U/L Alkaline Phosphatase (38-126) U/L Troponin I < 0.012 (0.000-0.034) ng/mL Total Protein (6.3-8.2) g/dL Albumin (3.5-5.1) g/dL Lipase (23-300) U/L Urine Color (Yellow) Urine Appearance (Clear) Urine pH (5.0-9.0) Ur Specific [place] (1.001-1.035) Urine Protein (Negative) mg/dL Urine Glucose (UA) (Negative) mg/dL Urine Ketones (Negative) mg/dL Ur Blood (Man) (Negative) Urine Nitrate (Negative) Urine Bilirubin (Negative) Urine Urobilinogen (<2.0) mg/dL Leukocyte Esterase Rfl (Negative) DAISY/UL Urine RBC (0-2) /hpf Urine WBC (0-3) /hpf Ur Squamous Epith Cells (Few) /hpf Urine Bacteria /hpf Urine Casts POC Urine HCG, Qual (Negative) <Romi Mcgrath MD - Last Filed: 10/12/24 20:57> Imaging Data Radiologist's impression: ITS Impressions Chest X-Ray 10/12/24 14:16 IMPRESSION: 1: NO ACUTE CARDIOPULMONARY DISEASE. Abdomen/Pelvis CT 10/12/24 19:19 IMPRESSION: Redemonstration of a 5 mm calculus within the lower pole of the left kidney, as detailed above. <Daily Ojeda MD - Last Filed: 10/13/24 09:01> Discharge Plan Discharge Clinical Impression: Epigastric abdominal pain Low back pain Qualifiers: Chronicity: acute Back pain laterality: midline Sciatica presence: without sciatica Qualified Code(s): M54.50 - Low back pain, unspecified <Molly De Anda PA-C - Last Filed: 10/14/24 09:13> Patient Disposition: Home <Molly De Anda PA-C - Last Filed: 10/14/24 09:13> Condition: Stable <Molly De Anda PA-C - Last Filed: 10/14/24 09:13> Instructions: Acute Low Back Pain (ED), Epigastric Pain (ED) <Molly De Anda PA-C - Last Filed: 10/14/24 09:13> Additional Instructions: Please follow up with your PCP; try the medications as prescribed and please come back to the ER if your symptoms don't improve or worsen. <Molly De Anda PA-C - Last Filed: 10/14/24 09:13> Patient Language: Argentine <RENEA Perez Last Filed: 10/14/24 09:13> Prescriptions: New famotidine 20 mg tablet 20 mg PO DAILY Qty: 30 0RF alum-mag hydroxide-simeth [Maalox Advanced] 200-200-20 mg/5 mL suspension 10 ml PO QID PRN (Reason: dyspepsia) Qty: 200 0RF Rx Instructions: administer between meals and at bedtime ondansetron 4 mg tablet,disintegrating 4 mg PO Q8H PRN (Reason: nausea and vomiting) Qty: 10 0RF No Action sulfamethoxazole-trimethoprim 800-160 mg tablet 1 tablet PO Q12H 10 Days Qty: 20 0RF mupirocin 2 % ointment 1 applic topical BID Qty: 15 0RF <Molly De Anda PA-C - Last Filed: 10/14/24 09:13> Follow-up/Referrals: PHYSICIAN,DIRECTOR OF MUSIC THERAPY [Non-Staff] - <Molly De Anda PA-C - Last Filed: 10/14/24 09:13>
[2024-10-12 15:04] LABS: BEDSIDEPREGUCG Negative (Negative)
[2024-10-12 15:26] LABS: Add Urine Microscopic? YES; Appearance Urine Clear (Clear); Bacteria Urine None Seen /hpf; Bilirubin Urine Negative (Negative); Blood Urine 1+ (Negative); Color Urine Yellow (Yellow); Glucose Urine UA Negative (Negative); Ketones Urine Negative (Negative); Leukocyte Esterase Ur Trace LEU/UL (Negative); Nitrate Urine Negative (Negative); Non Pathogenic Casts 0-2; Protein Urine Negative (Negative); Specific Grav Ur 1.004 (1.001-1.035); Squamous Epithelial Cell Urine None Seen /hpf (Few); Urobilinogen Urine 0.2 mg/dL (<2.0); WBC Urine 0-5 /hpf (0-3); pH Urine 7.5 (5.0-9.0)
[2024-10-12 16:25] LABS: Basophils Percent Auto 0.5 % (0.2-1.2); Eosinophils Percent Auto 0.5 % (0-4.4); Hematocrit 35.5 % (37.0-47.0); Hemoglobin 11.5 g/dL (12.0-15.0); Immature Granulocyte Absolute 0.01 K/mm3 (0.00-0.031); Immature Granulocyte Percent A 0.1 % (0-0.5); Lymphocytes Absolute Auto 2.26 K/mm3 (0.9-3.2); Lymphocytes Percent Auto 30.4 % (18.3-44.2); Mean Corpuscular HGB Conc 32.4 g/dl (32-36); Mean Corpuscular Hemoglobin 26.8 pg (26-34); Mean Corpuscular Volume 82.8 fl (80-100); Mean Platelet Volume 9.2 fl (7.4-10.4); Monocytes Absolute Auto 0.6 K/mm3 (0.1-0.6); Monocytes Percent Auto 7.7 % (2.6-8.5); Neutrophils Absolute Auto 4.5 K/mm3 (1.3-6.7); Neutrophils Percent Auto 60.8 % (45.5-73.1); Platelet Count Result 279 k/mm3 (150-375); Red Blood Count 4.29 M/mm3 (4.2-5.4); Red Cell Distribution Width 16.2 % (11.5-14.5); White Blood Count 7.4 K/mm3 (4.5-10.0)
[2024-10-12 16:34] LABS: Alanine Aminotransferase 16 U/L (6-35); Albumin Level 4.7 g/dL (3.5-5.1); Alkaline Phosphatase 76 U/L (38-126); Anion Gap 13 mmol/L (4-12); Aspartate Amino Transferase 23 U/L (14-36); Bilirubin,Total 0.4 mg/dL (0.2-1.3); Blood Urea Nitrogen 6 mg/dL (7-17); Calcium 9.1 mg/dL (8.4-10.2); Carbon Dioxide 17 mmol/L (22-30); Chloride 110 mmol/L (98-107); Estimated CRCL calculation 135 ml/min; Estimated Glomerular Filt Rate > 60; Glucose 89 mg/dL (65-110); Lipase 193 U/L (23-300); Potassium 3.6 mmol/L (3.4-5.0); Sodium 140 mmol/L (137-145)
--- OUTSIDE RECORDS SUMMARY | 2024-10-12 16:35 | XMS_ITS | Encounter Summary ---
Author Organization [facility] Address [address] [place] [address] Care Team Providers Care Supply Chain Design Manager Name Role Phone Sherri Herman [facility] Primary Care Provider [phone] Encounter Details Date Type Department Care Team (Late Contact Info) Description 01/19/2022 [facility] [address] [place] [address] Beth Zuniga MA Social History Tobacco Use [...] PM CDT Office Visit [facility] [address] [place] [address] Con Fontana MD [facility] [address] [place], [place] [id number] documented as of this encounter Procedures Procedure [...] (05/31/2022) HGB A1C 5.6 % 05/31/2022 Default [facility] Genericprovider LABORATORY Final Result * (ABNORMAL) COMPREHENSIVE [...] * THYROID STIM HORMONE, TSH (01/21/2021) Pathologist [facility] TSH 1.31 01/21/2021 us Doc [facility] LABORATORY Final Result * CBC (OUTSIDE LAB) (01/21/2021) Pathologist [facility] WBC 8.6 HGB 11.0 HCT 35.2 PLT 268 01/21/2021 us Doc [facility] LAB-OUTSIDE/ABSTRACTED Final Result * (ABNORMAL) COMPREHENSIVE METABOLIC PANEL (01/21/2021) Pathologist [facility] SODIUM S/P/B 140 POTASSIUM S/P/B 3.8 CO2 [...] Result * FOLATE (OUTSIDE LAB) (07/02/2020) Pathologist [facility] FOLATE 10.4 07/02/2020 us Doc [facility] LAB-OUTSIDE/ABSTRACTED Final Result * VITAMIN B-12 (07/02/2020) Pathologist [facility] VITAMIN B12 S/P/B 914 07/02/2020 us Doc [...] on filedocumented in this encounter Care Teams Supply Chain Design Manager Relationship Specialty Start Date End Date Sherri Herman FNP [address] [place] [id number] PCP - General NURSE PRACTITIONER 01/03/22 documented as of this encounter
--- OUTSIDE RECORDS SUMMARY | 2024-10-12 16:36 | XMS_ITS | Data Portability ---
Author Organization [facility] [employer], Main Office Address [address] [place] [address] Assessment No assessment recorded. Plan of Treatment Reminders Order Date Submit Date Provider Last Modified By Organization Details Last Modified Time Details Appointments None recorded. Lab urinalysis, dipstick 2022 023 [facility] [address], [place], [address], 3 17:38:00 urinalysis, complete 2022 023 [facility] (Lab), [address] [place], [address], 3 02:44:33 culture, urine + sensitivity 20[email or web address] (Lab), [address] [place], [address], 3 09:05:41 Referral None recorded. Procedures None recorded. Surgeries None recorded. Imaging None recorded. Medication Orders ciprofloxac in 500 mg tablet 2022 023 [id number] 5 [facility] #[id number], [address], [place], [address], 3 16:43:18 Wegovy 0.5 mg/0.5 mL subcutaneou s pen injector 2022 023 [id number] 5 [facility], [address], [place], [address], 19:25:30 Patient TargetsNo targets recorded. Patient InstructionsNo instructions recorded. Reason for Referral None Reported. Results Created Date Observation Date Name Description Value Unit Range Abnormal Flag Note LastModifiedBy Organization Detail LastModifiedTime 09/09/1909/08/2022 URINA LYSIS , COMPL ETE color YELLOW yellow normal Not Available [address], [address], 09/08/2022 02:44:31 09/09/1909/08/2022 URINA LYSIS , COMPL ETE appearance CLOUDY clear abnormal Not Available [address], [address], 09/08/2022 02:44:31 09/09/1909/08/2022 URINA LYSIS , COMPL ETE specific gravity 1.010 1.001- 1.035 normal Not Available [address], [address], 09/08/2022 02:44:31 09/09/19 23 09/08/2022 URINA LYSIS , COMPL ETE pH 6.0 5.0-8. 0 normal Not Available [address], [address], 09/08/2022 02:44:31 09/09/1909/08/2022 URINA LYSIS , COMPL ETE glucose NEGATI VE negati ve normal Not Available [address], [address], 09/08/2022 02:44:31 09/09/1909/08/2022 URINA LYSIS , COMPL ETE bilirubin NEGATI VE negati ve normal Not Available [facility] [address], [address], 09/08/2022 02:44:31 09/09/19 23 09/08/2022 URINA LYSIS , COMPL ETE ketones NEGATI VE negati ve normal Not Available [address], [address], 09/08/2022 02:44:31 09/09/19 23 09/08/2022 URINA LYSIS , COMPL ETE occult blood 2+ negati ve abnormal Not Available [address], [address], 09/08/2022 02:44:31 09/09/19 23 09/08/2022 URINA LYSIS , COMPL ETE protein NEGATI VE negati ve normal Not Available [address], [address], 09/08/2022 02:44:31 09/09/19 23 09/08/2022 URINA LYSIS , COMPL ETE nitrite NEGATI VE negati ve normal Not Available [address], [address], 09/08/2022 02:44:31 09/09/19 23 09/08/2022 URINA LYSIS , COMPL ETE leukocyte esterase 1+ negati ve abnormal Not Available [address], [address], 09/08/2022 02:44:31 09/09/19 23 09/08/2022 URINA LYSIS , COMPL ETE WBC 0-5 /hpf < or = 5 normal Not Available [address], [address], 09/08/2022 02:44:31 09/09/19 23 09/08/2022 URINA LYSIS , COMPL ETE RBC NONE SEEN /hpf < or = 2 normal Not Available [address], [address], 09/08/2022 02:44:31 09/09/19 23 09/08/2022 URINA LYSIS , COMPL ETE squamous epithelial cells 10-20 /hpf < or = 5 abnormal Not Available [facility] [address], [address], 09/08/2022 02:44:31 09/09/19 23 09/08/2022 URINA LYSIS , COMPL ETE bacteria NONE SEEN /hpf none seen normal Not Available [facility] [address], [address], 09/08/2022 02:44:31 09/09/19 23 09/08/2022 URINA LYSIS , COMPL ETE calcium oxalate crystals FEW /hpf none or few normal Not Available [facility] [address], [address], 09/08/2022 02:44:31 09/09/19 23 09/08/2022 URINA LYSIS , COMPL ETE hyaline cast NONE SEEN /lpf none seen normal Not Available [facility] [address], [address], 09/08/2022 02:44:31 09/09/1909/08/2022 ARTURO T EDUCA TION TRACK ING client education tracking The Requi sitio n we recei trinh did not inclu de a [facility] accou nt numbe r. To preve nt delay s in testi ng and proce ssing of your order s pleas e provi de the follo wing infor matio n with every order submi tted: [facility] accou nt numbe r and accou nt name Clien t addre ss Clien t phone and fax numbe r NPI numbe r of order ing physi gulshan along with the physi gulshan name. Not Available [address], [address], 09/08/2022 02:44:35 09/09/19 23 09/08/2022 CULTU RE, URINE , ROUTI NE culture, urine, routine SEE NOTE CULTU RE, URINE , ROUTI NE Micro Numbe r: [id number] Test Statu s: Final Speci men Sourc e: Not given Speci men Quali ty: Adequ ate Resul t: 50,00 0-100 ,000 CFU/m L of Non-u ropat hogen ic Gram posit edelmira organ ism May repre sent colon izers from exter nal and inter nal genit lola. No furth er testi ng (incl uding susce ptibi lity) will be perfo rmed. NO COLLE CTION DATE RECEI TRINH. WE HAVE USED THE DATE THE SPECI MEN WAS RECEI TRINH BY THIS LABOR ATORY THE COLLE CTION DATE. IF THIS IS INCOR RECT, JOSE E CONTA CT CLIEN T SERVI TRICIA. PHONE RUPERTO R: [phone] [phone] 78 Not Available [employer] [facility] [address] [place], [address], 09/08/2022 02:44:36 07/07/19 23 07/08/2022 VITAM IN D,25- OH,TO LARRY,I A vitamin D,25-oh,tota l,ia 25 NG/mL 30-100 low Vitam in D Statu s 25-OH Vitam in D: Defic iency : <20 ng/mL Insuf ficie ncy: 20 - 29 ng/mL Optim al: > or = 30 ng/mL For 25-OH Vitam in D testi ng on patie nts on D2-bennett pplem entat ion and patie nts for whom quant itati on of D2 and D3 fract ions is requi red, the [facility] Assur eD(TM ) 25-OH VIT D, (D2,D 3), LC/MS /MS is recom ashley d: order code 26075 (renetta ents >2yrs ). See Note 1 Note 1 For addit ional infor jose ferris refer to http: //temitope paredesQue stDia gnost ics.c om/fa q/FAQ 199 (This link is being provi ded for infor breana olguin/ educsophia aguilar purpo ses only. ) Not Available [employer] [facility] [address] [place], [address], 07/08/2022 09:47:44 09/06/19 23 09/05/2022 urina lysis , dipst ick Color Yellow Not Available [address], [place], [address], 09/05/2022 16:39:37 09/06/19 23 09/05/2022 urina lysis , dipst ick Appearance Clear Not Available [address], [place], [address], 09/05/2022 16:39:37 09/06/19 23 09/05/2022 urina lysis , dipst ick Glucose (reference range: negative mg/dl) Negati ve Not Available [address], [place], [address], 09/05/2022 16:39:37 09/06/19 23 09/05/2022 urina lysis , dipst ick Bilirubin (reference range: negative mg/dl) Negati ve Not Available [address], [place], [address], 09/05/2022 16:39:37 09/06/19 23 09/05/2022 urina lysis , dipst ick Ketone (reference range: negative mg/dl) Negati ve Not Available [address], [place], [address], 09/05/2022 16:39:37 09/06/19 23 09/05/2022 urina lysis , dipst ick Specific [place] (reference range: 1.005-1.030) 1.020 Not Available [address], [place], [address], 09/05/2022 16:39:37 09/06/19 23 09/05/2022 urina lysis , dipst ick Blood (reference range: negative Darinel/ l) Large Not Available [address], [place], [address], 09/05/2022 16:39:37 09/06/19 23 09/05/2022 urina lysis , dipst ick pH (reference range: 5-7) 6.0 Not Available [address], [place], [address], 09/05/2022 16:39:37 09/06/19 23 09/05/2022 urina lysis , dipst ick Protein (reference range: negative mg/dl) Negati ve Not Available [address], [place], [address], 09/05/2022 16:39:37 09/06/19 23 09/05/2022 urina lysis , dipst ick Urobilinogen (reference range: 0.2-1 mg/dl) 0.2 Not Available [address], [place], [address], 09/05/2022 16:39:37 09/06/19 23 09/05/2022 urina lysis , dipst ick Nitrite (reference rage: negative mg/dl) negati ve Not Available [address], [place], [address], 09/05/2022 16:39:37 09/06/19 23 09/05/2022 urina lysis , dipst ick Leukocytes (reference range: negative maynor/ l) Trace Not Available [address], [place], [address], 09/05/2022 16:39:37 08/19/19 24 08/19/2023 rapid strep group A, throa t STREP A negati ve Not Available [address], [place], [address], 08/19/2023 12:38:57 08/19/19 24 08/19/2023 rapid flu (A+B) Flu A negati ve Not Available [facility] [address], [place], [address], 08/19/2023 12:38:45 08/19/19 24 08/19/2023 rapid flu (A+B) Flu B negati ve Not Available [address], [place], [address], 08/19/2023 12:38:45 07/13/19 23 07/13/2022 CT, abdom en + pelvi s, w/wo contr ast No observ ation record ed. [id number] [facility] [address], [place], [address], 08/08/2022 10:50:27 07/13/19 23 07/13/2022 CT, abdom en + pelvi s, w/wo contr ast No observ ation record ed. [id number] [facility] [address], [place], [address], 08/08/2022 10:50:27 08/31/19 23 08/30/2022 CT, angio gram, chest + abdom en, w/ contr ast No observ ation record ed. [facility] [address], [place], [address], 08/30/2022 13:05:56 Result Notes None recorded. Problems Name Problem SNOMED Code Status Onset Date Resolution Date Notes Provider Name and Address Organization Details Recorded Time Deviated nasal septum 246481044 Active 2021 Not Available [facility] 10:45:31 Hypertrophy of nasal turbinates 28170998 Active 2021 Not Available [employer] 3 10:45:31 Chiari malformation 695088099 Active 2017 Not Available [facility] 3 10:45:32 Orbital cyst 61430266 Active 2017 Not Available [facility] 3 10:45:32 Vitamin D deficiency 56338572 Active 2019 Not Available [facility] 3 10:45:32 Diastolic dysfunction 5899590 Active 2022 Not Available [facility] 3 10:45:32 Exposure to SARS-CoV-2 Active 2019 Not Available [facility] 3 10:45:32 Heart murmur 03475207 Active 2022 Not Available [facility] 3 10:45:32 Blood in urine 04584917 Active 2022 JOSE MANUEL Fitzpatrick [address], [place], [address] , [facility] 3 08:45:56 Morbid obesity 566042554 Active 2022 JOSE MANUEL Fitzpatrick [address], [address], [place], [address] , [facility] 3 08:52:04 Urinary symptoms 520313156 Active 2022 JOSE MANUEL Fitzpatrick [address], [address], [place], [address] , [facility] 3 16:40:54 Microscopic hematuria 136871536 Active 2022 Liu Yang MD [address], [address], [place], [address] , [facility] 3 10:30:39 Fever 914186183 Active 2023 SUELLEN Navarro, [place] [facility] 4 12:38:51 Sore throat 972171107 Active 2023 Ángela Saldana LPN null, [place] [facility] 4 12:39:04 Cough 80653529 Active 2023 Keren Leonard MD [address], [place], [address] , [employer] 17:51:13 Problem Notes None recorded. Procedures Surgical History Date Name Laterality Status Provider Name and Address Organization Details Recorded Time 11/30/19 Cystoscopy (female) completed Liu Yang MD [address], [place], [address], [employer] 11/29/2022 10:30:29 09/19/19 SEPTOPLASTY (SURG) completed Not Available [facility] 08/08/2022 10:50:23 Imaging Results Imaging Date Name Status LastModified by Organiz ation Details LastModified Time 07/13/2022 CT, abdomen + pelvis, w/wo contrast completed [id number] [facility] [address], [place], [address], 08/08/2022 10:50:27 07/13/2022 CT, abdomen + pelvis, w/wo contrast completed [id number] [facility] [address], [place], [address], 08/08/2022 10:50:27 08/30/2022 CT, angiogram, chest + abdomen, w/ contrast completed [email or web address] [address], [place], [address], 08/30/2022 13:05:56 Procedure Notes None recorded. Medical Equipment None Reported. Allergies No known drug allergies Medications Name Sig Start Date Stop Date Status Note LastModified by Organization Details LastModified Time amoxicillin 500 mg capsule Take 1 capsule every 12 hours by oral route for 10 days. active Not Available Not Available No t Available azelastine 0.05 % eye drops INSTILL 1 DROP INTO AFFECTED EYE(S) BY OPHTHALMI C ROUTE 2 TIMES PER DAY active Not Available Not Available No t Available trazodone 50 mg tablet Take 1 tablet every day by oral route for 30 days. active Not Available Not Available No t Available azithromyci n 250 mg tablet TAKE 2 TABLETS BY MOUTH TODAY, THEN TAKE 1 TABLET DAILY FOR 4 DAYS DIRECTED active Not Available Not Available No t Available fluconazole 150 mg tablet TAKE ONE TABLET ON DAY 1 AND ONE TABLET IN 3 DAYS active Not Available Not Available No t Available acyclovir 400 mg tablet Take 1 tablet every 8 hours by oral route for 5 days. active Not Available Not Available No t Available ciprofloxac in 500 mg tablet Take 1 tablet every 12 hours by oral route for 5 days. active Not Available Not Available No t Available sulfamethox azole 800 mg-trimetho prim 160 mg tablet Take 1 tablet every 12 hours by oral route for 3 days. active Not Available Not Available No t Available triamcinolo ne acetonide 0.1 % topical cream APPLY A THIN LAYER TO THE AFFECTED AREA(S) BY TOPICAL ROUTE 2 TIMES PER DAY active Not Available Not Available No t Available amoxicillin 875 mg tablet 06/23 completed Not Available Not Available Not Available phenazopyri dine 100 mg tablet TAKE 1 TABLET BY MOUTH THREE TIMES A DAY active Not Available Not Available No t Available benzonatate 100 mg capsule 06/23 completed Not Available Not Available Not Available hydrocodone 7.5 mg-acetamin ophen 325 mg tablet TAKE 1 TABLET BY MOUTH ONCE EVERY 4 HOURS NEEDED FOR PAIN 09/26 completed Not Available Not Available Not Available erythromyci n 5 mg/gram (0.5 %) eye ointment active Not Available Not Available Not Available olopatadine 0.1 % eye drops INSTILL 1 DROP INTO AFFECTED EYE(S) BY OPHTHALMI C ROUTE 2 TIMES PER DAY AT AN INTERVAL OF 6 TO 8 HOURS 06/23 completed Not Available Not Available Not Available methylpredn isolone 4 mg tablets in a dose pack 06/23 completed Not Available Not Available Not Available ondansetron 4 mg disintegrat ing tablet 06/23 completed Not Available Not Available Not Available fluticasone propionate 50 mcg/actuati on nasal spray,suspe nsion [place] 1 spray every day by intranasa l route. active Not Available Not Available No t Available neomycin-po lymyxin-hyd rocort 3.5 mg-10,000 unit/mL-1 % ear drops,susp INSTILL 4 DROPS INTO AFFECTED EAR(S) BY OTIC ROUTE 3 TIMES PER DAY active Not Available Not Available No t Available bupropion HCl XL 150 mg 24 hr tablet, extended release TAKE 1 TABLET BY MOUTH EVERY DAY active Not Available Not Available No t Available nitrofurant oin monohydrate /macrocryst als 100 mg capsule TAKE 1 CAPSULE BY MOUTH TWICE A DAY active Not Available Not Available No t Available ProAir HFA 90 mcg/actuati on aerosol inhaler INHALE 2 PUFFS BY MOUTH EVERY 4 HOURS NEEDED active Not Available Not Available No t Available Contrave 8 mg-90 mg tablet,exte nded release TAKE 1 TAB DAILY X 1 WEEK,1TAB TWICE DAILY X 1 WEEK,2 IN AM & 1 IN PM X 1 WEEK, THEN 2 TWICE DAILY 06/23 completed Not Available Not Available Not Available Wegovy 0.25 mg/0.5 mL subcutaneou s pen injector Inject 0.25 mg every week by subcutane ous route. active Not Available Not Available No t Available We[employer] 0.5 mg/0.5 mL subcutaneou s pen injector Inject 0.5mg weekly active Not Available Not Available No t Available [employer] COVID-19 Antigen Home Test kit 08/22 completed Not Available Not Available Not Available Vitals Date Recorded Body mass index (BMI) Body height Body weight Provider Name and Address Organization Details Last Updated DateTime 08/01/2022 39.9 kg/m2 165.1 cm 218356.17 g Not Available [facility] 08/08/2022 10:43:21 Date Recorded Body height Body mass index (BMI) Body weight Body temperature Heart rate Oxygen saturation Oxygen saturation in Arterial blood by Pulse oximetry Systolic blood pressure Diastolic blood pressure Provider Name and Address Organization Details Last Updated DateTime 3 165.1 cm 39.4 kg/m2 893414. 39 g 98 [degF] 96 /min 97 % 97 % 118 mm[Hg] 82 mm[Hg] Irma Zuniga MA [place] [facility] [place] [facility] 3 08:33:21 Date Recorded Body height Body mass index (BMI) Body weight Body temperature Heart rate Oxygen saturation Oxygen saturation in Arterial blood by Pulse oximetry Systolic blood pressure Diastolic blood pressure Provider Name and Address Organization Details Last Updated DateTime 3 165.1 cm 39.6 kg/m2 100718. 98 g 97.6 [degF] 96 /min 98 % 98 % 114 mm[Hg] 62 mm[Hg] Irma Zuniga MA [employer] 16:32:13 Date Recorded Body height Provider Name an d Address Organization Details Last Updated DateTime 11/29/2022 165.1 cm Alessandro HillBRIANASophia [employer] 11/29/2022 09:28:21 Social History Question Answer Notes LastModified by Organizat ion Details LastModified Time Tobacco Smoking Status Never Smoker Not Available [employer] 08/08/2022 10:41:36 Do You Have An Advance Directive? No [id number] Information not available 08/08/2022 What Is Your Level Of Alcohol Consumption? Occasional [id number] [id number] Information not available 08/08/2022 Do You Wear A Helmet When Biking? No [id number].[id number] 7650 Information not available 08/08/2022 What Is Your Level Of Caffeine Consumption? Moderate MIGRATION.[id number] 0520 Information not available 08/08/2022 How Much Tobacco Do You Chew? None MIGRATION.792384 0899 Information not available 08/08/2022 In The 14 Days Before Symptom Onset, Have You Had Close Contact With A Laboratory-confir med COVID-19 While That Case Was Ill? No [id number].[id number] 0593 Information not available 08/08/2022 In The 14 Days Before Symptom Onset, Have You Had Close Contact With A Person Who Is Under Investigation For COVID-19 While That Person Was Ill? No [id number] Information not available 08/08/2022 What Type Of Diet Are You Following? REGULAR MIGRATION.[id number] 3142 Information not available 08/08/2022 Do You Or Have You Ever Used E-cigarettes Or Vape? Never Used Electronic Cigarettes MIGRATION.[id number] 4574 Information not available 08/08/2022 Have There Been Any Changes To Your Family Or Social Situation? No MIGRATION.546739 6876 Information not available 08/08/2022 What Is The Fluoride Status Of Your Home? Unknown MIGRATION.[id number] 4175 Information not available 08/08/2022 Are There Any Guns Present In Your Home? No MIGRATION.[id number] 0098 Information not available 08/08/2022 Do You Use Insect Repellent Routinely? Yes MIGRATION.[id number] 2276 Information not available 08/08/2022 Do You Have A Medical Power Of Patternmaker Bench? No MIGRATION.247872 8911 Information not available 08/08/2022 What Was The Date Of Your Most Recent Tobacco Screening? 11/29/2022 [email or web address] Information not available 11/29/2022 Have You Ever Been Counseled For Unhealthy Alcohol Use? No MIGRATION.070172 9227 Information not available 08/08/2022 What Is Your Relationship Status? MIGRATION.932500 0942 Information not available 08/08/2022 Do You Use Your Seat Belt Or Car Seat Routinely? Yes MIGRATION.635810 6565 Information not available 08/08/2022 Do You Have Smoke And Carbon Monoxide Detectors In Your Home? Yes MIGRATION.748860 2381 Information not available 08/08/2022 Are You Passively Exposed To Smoke? No MIGRATION.255687 0085 Information not available 08/08/2022 Do You Or Have You Ever Used Smokeless Tobacco? Never Used Smokeless Tobacco MIGRATION.100446 8848 Information not available 08/08/2022 Are There Any Smokers In Your House? No MIGRATION.930002 2076 Information not available 08/08/2022 How Much Tobacco Do You Smoke? No MIGRATION.812492 1236 Information not available 08/08/2022 Do You Participate In Social Media? Yes MIGRATION.383576 4967 Information not available 08/08/2022 Do You Feel Stressed (tense, Restless, Nervous, Or Anxious, Or Unable To Sleep At Night)? [id number] MIGRATION.482452 7039 Information not available 08/08/2022 Do You Use Any Illicit Or Recreational Drugs? No MIGRATION.650255 9372 Information not available 08/08/2022 Do You Use Sunscreen Routinely? No MIGRATION.823724 0095 Information not available 08/08/2022 Has Tobacco Cessation Counseling Been Provided? No MIGRATION.764846 6804 Information not available 08/08/2022 Have You Recently Traveled Abroad? No MIGRATION.997970 3340 Information not available 08/08/2022 Are You Currently In School? No MIGRATION.286489 4116 Information not available 08/08/2022 Do You Have Any Dietary Restrictions? No MIGRATION.829382 7800 Information not available 08/08/2022 Do You Or Have You Ever Used Any Other Forms Of Tobacco Or Nicotine? No MIGRATION.169280 6416 Information not available 08/08/2022 Sex: Female Functional Status Question Answer Note LastModified by Organizat ion Details LastModified Time What is your exercise level? Occasional [id number] Information not available 08/08/2022 Mental Status None recorded. Family History Relationship Description Onset Age of this Age Resolved Age Notes LastModified by Organization Details LastModified Time Unspecified Relation Hypertensive disorder [id number] Not available 08/08/2022 10:42:40 Unspecified Relation Hypertensive disorder [id number] Not available 08/08/2022 19:44:27 Medical History Condition Response CYSTITIS N BLINDNESS N RHEUMATIC FEVER N KIDNEY STONES N BLADDER PROBLEMS N Enlarged Prostate N MRSA N LUNG DISEASE/DISORDER N HISTORY OF DRUG ABUSE N COPD N RADIATION / CHEMOTHERAPY N BLOOD DISEASES N EAR OR HEARING PROBLEMS N SHINGLES N BOWEL PROBLEMS N DEPRESSION (INCLUDING POST ) N STROKE/TIA N THYROID DISEASE N ULCERS N BENIGN PROSTATIC HYPERPLASIA N OBESITY N GERD/NAUSEA N ANEURYSM N Increased Urination N URINARY/BLADDER/KIDNEY PROBLEMS N CORONARY ARTERY DISEASE (CAD) N USE OF BLOOD THINNERS N EMPHYSEMA N GASTROINTESTINAL DISORDER N PARATHYROID DISEASE N GASTROINTESTINAL BLEEDING N BLOOD CLOTS N Difficulty Urinating N ASTHMA N CATARACTS N ERECTILE DYSFUNCTION N GI PROBLEMS N CHF N Low Testosterone N AIDS/HIV N FRACTURES N LIVER DISEASE N MALE HYPOGONADISM N HYPERTENSION N TOURETTE'S N BLOOD TRANSFUSION N ANEMIA/BLOOD DISORDER Y CHRONIC EAR INFECTIONS N TUBERCULOSIS N GLAUCOMA N SLEEP APNEA N ALLERGIES/HAYFEVER N INFECTIOUS DISEASE N HEART ARRHYTHMIA N PROSTATE N INSOMNIA N HIGH CHOLESTEROL / HYPERLIPIDEMIA N HYPERTHYROIDISM N UTI N EDEMA N HYPOTHYROIDISM N BACK / NECK PROBLEMS N HAVE YOU BEEN HOSPITALIZED OR SEEN IN [facility] ER IN THE PAST YEAR ? N DIALYSIS N HISTORY WITH COMPLICATIONS WITH ANESTHES IA ? N OSTEOPOROSIS N ARTHRITIS N NO SIGNIFICANT PAST MEDICAL HISTORY N DIABETES, TYPE N [place] N ENT N SEASONAL ALLERGIES N HEARTBURN / REFLUX N HEPATITIS / LIVER DISEASE N GOUT N SLEEP DISORDER N ALZHEIMER'S DISEASE N HERPES N HEADACHES/MIGRAINES N SEIZURES/EPILEPSY N PACEMAKER N HEART MURMUR N DIZZINESS N KIDNEY DISEASE N HEART DISEASE/HEART PROBLEMS N MULTIPLE SCLEROSIS N CANCER: SPECIFY N ANESTHESIA COMPLICATIONS N ATRIAL FIBRILLATION N AUTOIMMUNE DISEASE N Gynecological History Statement/Question Response Date of LMP 05/14/2022 Sexually Active? Y Menses Monthly Y STIs/STDs N Breast Problems no Discharge no Obstetrics History GPAL:G 0 P 0 0 0 0 Past Encounters Encounter ID Performer Location Encounter Start Date Encounter Closed Date Diagnosis/Indication Diagnosis SNOMED-CT Code Diagnosis ICD10 Code Diagnosis Note [id number] JOSE MANUEL Fitzpatrick [facility] [address] [facility] [address] [place] [address] 08/18/2020 00:00:00 08/18/2020 18:23:34 [id number] Keren Leonard MD [facility] [address] [place] [address] 01/18/2021 00:00:00 01/18/2021 20:51:13 [id number] Keren Leonard MD [facility] [address] [place] [address] 02/15/2021 00:00:00 02/15/2021 20:15:17 [id number] Keren Leonard MD [facility] [address] [place] [address] 06/20/2021 00:00:00 06/20/2021 18:08:56 [id number] [facility] ic_Gateway _ATHENA_M IGRATION_ DEFAULT_1 _1 , 06/23/2021 00:00:00 06/23/2021 12:37:12 [id number] Atif Bryan MD [facility] [place] [address] [place] [address] 07/18/2021 00:00:00 07/18/2021 12:44:39 [id number] Atif Bryan MD [facility] [place] [address] [place] [address] 09/26/2021 00:00:00 09/26/2021 14:16:57 [id number] JOSE MANUEL Fitzpatrick [facility] [address] [place] [address] 11/30/2021 00:00:00 11/30/2021 16:10:29 [id number] JOSE MANUEL Fitzpatrick [facility] [place] [address] [facility] [address] [place] [address] 12/29/2021 00:00:00 12/29/2021 17:41:21 [id number] Keren Leonard MD [facility] [place] [address] [facility] [address] [place] [address] 06/05/2022 00:00:00 06/05/2022 18:52:57 [id number] Liu Yang MD [facility] [address] [facility] [address] [place] [address] 06/21/2022 00:00:00 06/21/2022 09:36:05 [id number] Keren Leonard MD [facility] Primary [facility] [place] [address] [facility] [address] [place] [address] 07/03/2022 00:00:00 07/03/2022 19:20:58 [id number] KRYSTIAN Johnson [facility] Primary [facility] [place] [address] [facility] [address] [place] [address] 08/01/2022 00:00:00 08/01/2022 11:06:09 [id number] JOSE MANUEL Fitzpatrick [facility] Primary [facility] [place] [address] [facility] [address] [place] [address] 08/22/2022 08:26:37 08/22/2022 10:05:24 Blood in urine [id number] R31.9 Chronic, recurrentC ontinue to f/u with urology (Dr. Mar) as scheduled. Morbid obesity [id number] E66.01 BMI down to 39.4 with starting Wegovy. Continue to work on diet/exerc ise modificati ons. Advised eat 3 meals daily with 1-2 healthy snacks, eliminate caloric drinks, no grazing btw meals, reduce packaged foods, portion control, modificati on of cooking style, low fat/low sugar items, 30 minutes of exercise at least 3x/week, reduce emotional/ stress eating, increase fruits/veg etables, take 15-20 minutes to eat. Try to keep daily calorie count btw 0090-9836 calories. Gave meal planning handout. May need to consider referral to media marketing director/ nutritioni st as well. Will increase Wegovy to 0.5mg weekly Heart murmur [id number] R0 1.1 I51.89 Chronic, stableMurm ur found on examinatio n (11/30/21). Ekg wnl (12/26/21), Echo (12/26/21) indicated diastolic dysfunctio n.Per patient, cardiac stress test wnl.No cp, sob, palpitatio ns at this time.f/u with cardiology as scheduled. [id number] JOSE MANUEL Fitzpatrick [facility] [address] [place] [address] 09/05/2022 16:16:59 09/05/2022 17:56:32 Urinary symptoms [id number] R39.9 --UTI-Urin e dip in office today/UA sent for C & S. Will start on PO abx. Advised continue increased fluid intake to flush urinary tract. Discussed proper feminine hygiene (wipe front to back, unscented soaps/mois turizers, empty bladder immediatel y after sexual activity). Encouraged use of probiotics . [id number] Liu Yang MD [facility] [address] [facility] [address] [place] [address] 11/29/2022 09:21:37 11/29/2022 09:45:40 Microscopic hematuria [id number] R31.29 CT and Cystoscopy normal. Follow up prn [id number] Keren Leonard MD [facility] [address] [place] [address] 08/19/2023 14:09:17 09/02/2023 14:25:40 Health Concerns Section Related Observation LastModified by Organization Detai ls LastModified Time None Recorded Concern Status LastModified by Organization Details LastModified Time None Recorded Advance Directives Directive N: Payers Encounter Date Sequence Insurance Name Policy Number Policy Pitts Covered Member ID Pitts Member ID Guarantor Name 08/22/2022 1 [facility] [id number] Sylvester Ogden [id number] Sylvester Ogden 09/05/2022 1 [facility] [id number] Sylvester Ogden [id number] Sylvester Ogden 11/29/2022 1 [facility] [id number] Sylvester Ogden [id number] Sylvester Ogden 08/19/2023 1 [facility] [id number] Sylvester Ogedn [id number] Sylvester Ogden Notes Date Note Type Note Provider Name and Address Organization Details Recorded Time 08/22/2022 text/html 1. Pt in office for f/u appt. Pt states she has an appt with urology (Dr. Mar) for a scope at the end of this month. Believes she may need to reschedule b/c appt is near her menstrual cycle.2. Pt states she is tolerating the Wegovy well. States she is taking Miralax to combat the potential constipation. States she is also drinking 80-100oz/day of water. Pt states she is ready to increase the dosing. JOSE MANUEL Fitzpatrick [address], [place], [address], [employer] 08/22/2022 13:51:06 09/05/2022 text/html 1. Pt in office for problem visit with c/o having a UTI. States she woke up yesterday and urine was bright yellow and smelled. States she started having urinary frequency, urgency. Then it started burning and she saw blood in her urine. States she started cranberry pills, increased her water intake. JOSE MANUEL Fitzpatrick [address], [place], [address], [employer] 09/05/2022 16:44:30 OBGyn Episode No OBEpisode recorded.
--- OUTSIDE RECORDS SUMMARY | 2024-10-12 16:36 | XMS_ITS | Clinical Summary ---
Author Organization 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 Encounters Date Type Department Care Team Description 09/16/2024 Telephone [facility] [address] [place] [address] Malick Rogers MD Scheduling Appointments from Last 3 Months Surgical History Surgery Date Site/Laterality Comments [place] OCCLUSION FLP TUBE DEV VAG/SUPRAPUBIC APPR Oviductal [...] patient's age to complete this topic Insurance Member Subscriber Plan / Payer ( fective 2017-Present) Name:[place] Sylvester S Relation to Subscriber:Self Name:SYLVESTER AGUILAR Payer ID:1 ([facility]) Type:AETNA HMO/PPO Address: [address] [place] [address] [facility] Member Subscriber Plan / Payer ( fective 2017-Present) Name:Sylvester Ogden S Relation to Subscriber:Self Name:Sylvester Ogden Payer ID:1 ([facility]) Type:AETNA HMO/PPO Address: [address] [place] [address] [facility] OPEN ACCESS Member Subscriber Plan / Payer ( fective 2020-) Name:Sylvester Ogden S Relation to Subscriber:Self Name:Sylvester Ogden Payer ID:[id number] ([facility]) Type:CIGNA HMO/PPO Address: [address] [place] [address] [facility] CHOICE [facility] HMO/PPO Address: [address] [place] [address] [facility] CHOICE [facility] HMO/PPO Address: [address] [place] [address] Care Teams Parts Assembler Relationship Specialty Start Date End Date Farshad Rodriguez MD [address] [place] [address] PCP - General Emergency Medicine 09/14/24 Sherri Herman NP 10/04/17
--- OUTSIDE RECORDS SUMMARY | 2024-10-12 16:36 | XMS_ITS | Referral Summary ---
Author Organization [facility] Address [address] [place] [address] Care Team Providers Care Store Sales Consultant Name Role Phone Sherri Herman NP Unavailable [phone] Farshad Rodriguez MD Primary Care Provider [phone] Encounters Date Type Department Care Team Description 09/16/2024 Telephone [facility] [address] [place] [address] Malick Rogers MD Scheduling Appointments [...] Plan of Treatment Not on file Insurance [facility] OPEN ACCESS [facility] CHOICE PLUS [facility] CHOICE PLUS Care Teams Store Sales Consultant Relationship Specialty Start Date End Date Farshad Rodriguez MD [address] [place] [address] PCP - General Emergency Medicine 09/14/24 Sherri Herman NP 10/04/17
--- OUTSIDE RECORDS SUMMARY | 2024-10-12 16:36 | XMS_ITS | Clinical Summary ---
Author Organization [facility] Address [address] [place] [address] Care Team Providers Care Knockdown Worker Name Role Phone Sherri Herman Luis FIELD SUPPORT REP Primary Care Provider [phone] Allergies No known active allergies Medications No known medications Active Problems Problem Noted Date Diagnosed Date Obesity, Class III, BMI 40-49.9 (morbid obesity) 05/02/2022 Chronic diastolic heart failure ([facility] ) 05/02/2022 Dyslipidemia 05/02/2022 Chiari malformation type I ([facility]) Immunizations Immunization Administration Dates Next Due Dtp (Generic) 02/01/1988, 7,03/30/1983,1982,1982 Influenza (Generic) 03/22/2014 MMR (MMRII) 12/09/1992,04/29/1984 PFIZER COVID-19 (ORIGINAL FORMULATION, PURPLE CAP) mRNA, LNP-S, PF, 30 MCG/0.3 ML DOSE 10/22/2020,10/01/2020 Polio Opv (Generic) 02/01/1988, 7,03/30/1983,1982,1982 Family History Medical History Relation Comments PR Father Aneurysm Maternal Grandfather Stroke Maternal Grandmother [...] Comments Blood Pressure 104/60 07/04/2022 1:41 PM EDUCATION ASSISTANT Pulse 86 07/04/2022 1:41 PM EDUCATION ASSISTANT Temperature - - Respiratory Rate - - Oxygen Saturation - - Inhaled Oxygen Concentration - - Weight 112.9 kg (249 lb) 07/04/2022 1:41 PM EDUCATION ASSISTANT Height 162.6 cm (5' 4 ) 07/04/2022 1:41 PM EDUCATION ASSISTANT Body Mass Index 42.74 07/04/2022 1:41 PM EDUCATION ASSISTANT Plan of Treatment Upcoming Encounters Date Type Department Care Team (Late st Contact Info) Description 11/30/2024 12:30 PM CDT Office Visit [facility] [place] [address] Con Fontana MD [facility], [address] [place] [address] Health Maintenance Due Date Last Done Comments [...] patient's age to complete this topic Insurance [facility] Care Teams Knockdown Worker Relationship Specialty Start Date End Date Sherri Herman, JOSE MANUEL [address] [place] [address] PCP - General NURSE PRACTITIONER 01/03/22
[2024-10-12 16:46] LABS: Troponin I < 0.012 ng/mL (0.000-0.034)
[2024-10-12 17:23] LABS: INR 1.1; Partial Thromboplastin Time 26.3 Seconds (22.3-36.8); Prothrombin Time 14.3 Seconds (11.1-14.7)
--- NOTE | 2024-10-12 19:08 | ECG_ITS ---
Test Date: 2024-10-12 19:15:28 Measurements Intervals [place] Rate: 74 P: 60 SC: 140 QRS: 33 QRSD: 96 T: 32 QT: 340 QTc: 378 Interpretive Statements SINUS RHYTHM Compared to ECG 10/12/2024 13:42:34 NO SIGNIFICANT CHANGES Electronically Signed On 10-13-2024 14:18:24 CDT by David Fisher M.D.
[2024-10-12 19:46] LABS: Troponin I < 0.012 ng/mL (0.000-0.034)
[2024-10-12] MEDS: MAG HYDROX/AL HYDROX/SIMETH 30 ML UDC PO (20:27)
[2024-10-12] MEDS: PANTOPRAZOLE SODIUM IV 40 MG VIAL IV PUSH (20:27)
== END 2024-10-12 20:37 | disposition home or self-care (01) ==
PROVIDERS: Emergency Medicine; Physician Assistant; Emergency Provider Emergency Medicine; PCP Emergency Medicine
DX: R10.13 Epigastric pain (principal); M54.50 Low back pain, unspecified; Z87.440 Personal history of urinary (tract) infections; N20.0 Calculus of kidney; R94.31 Abnormal electrocardiogram [ECG] [EKG]
CPT/HCPCS: 36415; 71046; 74177; 80053; 81001; 81025; 83690; 84484; 85025; 85610; 85730; 93005; 96374; 99284; A9270; J2470; Q9967

== ENCOUNTER 2025-01-18 12:22 | Emergency (ER) | payer OTHER, SELFPAY ==
--- NOTE | ~2025-01-18 | CT_ITS ---
EXAMINATION: CT chest abdomen pelvis w con DATE: 01/18/2025 17:25 CDT INDICATION: Left chest wall. Left upper quadrant pain. Right hip TECHNIQUE: Computed tomography (CT) of the chest, abdomen, and pelvis was performed without intraveno us contrast. The dose-length product was 1433.94 mGy-cm. COMPARISON: CT chest and abdomen 10/12/2024; CTA chest 08/30/2022 FINDINGS: CHEST CT: No enlarged mediastinal or hilar lymph nodes. Heart is enlarged. Thoracic aorta is grossly unremarkab le. Tracheobronchial tree is grossly patent. No pneumothorax. No pleural effusion. No focal pulmonary consolidation. No pulmonary mass. There is a 1.4 cm pulmonary nodule in the lingula. A PET/CT and/or biopsy is recommended. ABDOMEN/PELVIS CT: There is a 9 mm low-density lesion in the right lobe of the liver which was not seen in the study fro 2022. There is a 2.3 x 1.8 cm low-density region in the medial segment of the left lobe of the live r about the falciform ligament. Differential includes focal fatty infiltration versus liver lesion. A liver mass MRI is recommended. There is a 5 mm nonobstructing calcification in the left kidney. The gallbladder, kidneys, adrenal glands, spleen and pancreas are unremarkable. No enlarged lymph nodes in the abdomen or pelvis. Small amount of fluid in the pelvis. No CT evidence for colitis or acute appendicitis. Bladder is grossly unremarkable. IMPRESSION: 1. There is a 1.4 cm pulmonary nodule in the lingula. The finding measured 8 mm on 08/30/2022. A PET/C T and/or biopsy is recommended. 2. There is a 9 mm low-density lesion in the right lobe of the liver which was not seen in the study from 2022. There is a 2.3 x 1.8 cm low-density region in the medial segment of the left lobe of the l iver about the falciform ligament. Differential includes focal fatty infiltration versus liver lesion . A liver mass MRI is recommended. 3. There is a 5 mm nonobstructing calcification in the left kidney. 4. Small amount of nonspecific fluid in the pelvis. Reviewed, dictated and finalized at location A. IMPRESSION: 1. There is a 1.4 cm pulmonary nodule in the lingula. The finding measured 8 mm on 08/30/2022. A PET/CT and/or biopsy is recommended. 2. There is a 9 mm low-density lesion in the right lobe of the liver which was not seen in the study from 2022. There is a 2.3 x 1.8 cm low-density region in the medial segment of the left lobe of the liver about the falciform ligament. Differential includes focal fatty infiltration versus liver lesion. A liver mas s MRI is recommended. 3. There is a 5 mm nonobstructing calcification in the left kidney. 4. Small amount of nonspecific fluid in the pelvis.
--- NOTE | ~2025-01-18 | XR_ITS ---
Exam: Left elbow minimum 3 views. TECHNIQUE: 5 images of the left elbow were obtained. COMPARISON: None FINDINGS: No fracture. No dislocation. No joint effusion. Mild soft tissue swelling about the left elbow. Bone mineralization is within normal limits. IMPRESSION: 1. No acute bony abnormality identified. If symptoms persist or worsen, consider a short-term follow- up study or additional imaging for further assessment Reviewed, dictated and finalized at location A. IMPRESSION: 1. No acute bony abnormality identified. If symptoms persist or worsen, conside r a short-term follow-up study or additional imaging for further assessment
--- OUTSIDE RECORDS SUMMARY | 2025-01-18 12:24 | XMS_ITS | Clinical Summary ---
Author Organization [facility] [employer] Address [address] [place] [address] Care Team Providers Care Financial Sales Representative Name Role Phone Farshad Rodriguez MD Primary Care Provider [phone] Source Comments [facility] [employer],non-owned Affiliates and Associated Physician Practices is amultiple site organization consisting of ambulatory clinics and hospital sitesin [place], [place], [place] and [place]. This disclosure is being madepursuant to the Care Everywhere program and may not contain all information available regarding this patient. Last updated 18.[facility] [employer] Allergies Active Allergy Reactions Criticality Noted Date Comments Skin Adhesives Rash Medium 10/16/2024 Medications * Be aware that medications may not be up to date on this document. Alwaysverify current medications with the patient. acetaZOLAMIDE ER 12hr (Diamox Sequel) 500 MG capsule Take 2 (two) capsules by mouth 2 times daily for 7 days, THEN 3 (three) capsules 2 times daily for 7 days, THEN 3 (three) capsules 2 times daily for 7 days, THEN 4 (four) capsules 2 times daily for 7 days, THEN 4 (four) capsules 2 times daily. 340 capsule 4 08/29/19 25 026 Active ondansetron, disintegrating, (Zofran ODT) 4 MG tablet Take 1 (one) tablet by mouth every 6 hours as needed for Nausea/Vomiting Allow tablet to dissolve on the tongue 5 tablet 10/17/19 25 Active Additional Information Patient not taking.Reported on 12/21/2024 acetaminophen (Tylenol) 500 MG tablet Take 1 (one) tablet by mouth every 4 hours as needed for Fever or Pain Maximum allowable Acetaminophen amount = 4 Grams (4000 mg) / 24 hours. 30 tablet 10/17/19 25 Active azelastine (Astelin) 0.1 % nasal spray [place] 1 (one) spray to 2 (two) sprays into each nostril 2 times daily 90 mL 5 11/06/19 25 Active fluticasone propionate (Flonase) 50 MCG/ACT nasal spray [place] 2 (two) sprays into each nostril once daily 16 g 4 11/06/19 25 Active potassium citrate (Urocit K 10) 10 MEQ (1080 MG) tablet Take 1 (one) tablet by mouth 3 times daily with meals 60 tablet 11 11/14/19 25 Active ferrous sulfate 325 (65 FE) MG tablet Take 1 (one) tablet by mouth at bedtime 90 tablet 3 11/14/19 25 Active traZODone (Desyrel) 100 MG tablet Take 1 (one) tablet by mouth once daily as needed Active albuterol HFA (PROVENTIL;VENT YANETH;PROAIR) 108 (90 BASE) MCG/ACT inhalerIndicati ons:Acute bronchitis, unspecified organism Inhale 2 puffs by mouth every 4 hours as needed 1 Inhaler 07/24/19 18 025 Discontin ued(List Clean-Up) vitamin D, ergocalciferol, (Drisdol) 1.25 MG (54031 UT) capsule TAKE 1 CAPSULE BY MOUTH ONE TIME PER WEEK 07/13/19 25 025 Discontin ued(List Clean-Up) topiramate (Topamax) 50 MG tablet Take 1 (one) tablet by mouth 2 times daily for 4 days, THEN 2 (two) tablets 2 times daily. 68 tablet 11 09/18/19 25 025 Discontin ued(List Clean-Up) amitriptyline (Elavil) 25 MG tabletIndicatio ns:Intractable episodic tension-type headache Take 1 (one) tablet by mouth at bedtime 90 tablet 3 09/24/19 25 025 Discontin ued(List Clean-Up) divalproex DR (Depakote) 125 MG tablet Take 1 (one) tablet by mouth 2 times daily 180 tablet 4 10/16/19 25 025 Discontin ued(List Clean-Up) butalbital-acet aminophen-caffe ine (Fioricet) 50-300-40 MG capsuleIndicati ons:Intractable episodic tension-type headache Take 1 (one) capsule by mouth every 4 hours as needed for Headache 30 capsule 5 10/16/19 25 025 Discontin ued(List Clean-Up) naproxen (Naprosyn) 500 MG tablet Take 1 (one) tablet by mouth 2 times daily 30 tablet 10/17/19 25 025 Discontin ued(List Clean-Up) famotidine (Pepcid) 20 MG tablet Take 1 (one) tablet by mouth once daily 10/13/19 25 025 Discontin ued(List Clean-Up) Active Problems Problem Noted Date Diagnosed Date Kidney stones 11/13/2024 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 10/23/2017 Vitamin D deficiency Encounters Date Type Department Care Team Description 01/15/2025 Travel 01/14/2025 12:00 PM CDT Office Visit [facility] Weight Management Services [address] [place] [address], [address] [place] [address] Kathy Cortes MD Class 3 severe obesity with body mass index (BMI) of 40.0 to 44.9 in adult, unspecified obesity type, unspecified whether serious comorbidity present (HCC) (Primary Dx); Dyslipidemia; Vitamin D deficiency; Snoring; Pre-diabetes 01/14/2025 Office Visit External [facility] Weight [facility] [address] [place] [address], [address] [place] [address] Kathy Cortes MD 01/14/2025 Office Visit External [facility] [address] [facility], [facility] [address] [place] [address] Kathy Cortes MD 12/30/2024 Travel 12/21/2024 3:15 PM CDT Office Visit [facility] - ENT [address] [place] [phone] Emiliano Boyce MD Tinnitus aurium, bilateral (Primary Dx) 12/21/2024 Travel 11/13/2024 2:00 PM CDT Office Visit [facility] - Nephrology [address] [place] [phone] Claude Ross MD Kidney stones (Primary Dx); Renal stone; Vitamin D deficiency 11/13/2024 Travel 11/10/2024 2:20 PM CDT Clinical Support [facility] - Ophthalmology [address] [place] [phone] Claude Ross MD II (idiopathic intracranial hypertension) (Primary Dx) 11/10/2024 2:15 PM CDT Clinical Support [facility] - Ophthalmology [address] [place] [phone] Claude Ross MD II (idiopathic intracranial hypertension) (Primary Dx) 11/10/2024 2:10 PM CDT Clinical Support [facility] - Ophthalmology [address] [place] [phone] Claude Ross MD II (idiopathic intracranial hypertension) (Primary Dx) 11/10/2024 2:00 PM CDT Office Visit [facility] - Ophthalmology [address] [place] [phone] Claude Ross MD II (idiopathic intracranial hypertension) (Primary Dx) 11/05/2024 10:15 AM CDT Office Visit [facility] - ENT [address] [place] [phone] Emiliano Boyce MD Tinnitus aurium, bilateral (Primary Dx) 11/05/2024 9:30 AM CDT Testing Visit [facility] - ENT [address] [facility] [place] [address] [place] KerenAmari Sensorineural hearing loss (SNHL) of left ear with unrestricted hearing of right ear ; Tinnitus of both ears; Dizziness; Otalgia of both ears 10/20/2024 Travel from Last 3 Months Immunizations Immunization Administration Dates Next Due Covid SurfAir primary monoval ent 12+ yr 0.3mL Purple cap 10/01/2020 DTP, HISTORIC VACCINE 02/01/1988, 987,03/30/1983,1982,1982 FLU VACCINE TRI IIV3 SPLIT I M (FLUVIRIN) 03/22/2014 MMR VACCINE 12/09/1992,04/29/1984 POLIO OPV 02/01/1988, 7,03/30/1983,1982,1982 Family History Medical History Relation Name Comments CAD (Coronary Artery Disease) Father CVA Mother Relation Name Status Comments Father Mother Social History Tobacco Use Types Packs/Day Years Used Date Smoking Tobacco: Never Smokeless Tobacco: Never Tobacco Cessation:Counseling Given: Not Answered AUDIT-C Answer Date Recorded Q1: How often do you have a drink containing alc ohol? Monthly or less 08/27/2024 Q2: How many drinks containi ng alcohol do you have on a typical day when you are drinking? 1 or 2 08/27/2024 Q3: How often do you have si x or more drinks on one occasion? Never 08/27/2024 Overall Financial Resource Strain (CARDIA) Answe r Date Recorded How hard is it for you to pa y for the very basics like food, housing, medical care, and heating? Not hard at all 08/27/2024 PHQ-2 Answer Date Recorded Patient Health Questionnaire-2 Score 0 09/17/2024 [facility] of Occupat ional Health - Occupational Stress Questionnaire Answer Date Recorded Do you feel stress - tense, restless, nervous, or anxious, or unable to sleep at night because your mind is troubled all the time - these days? Not at all 08/27/2024 Hunger Vital Sign Answer Date Recorded Within the past 12 months, y ou worried that your food would run out before you got the money to buy more. Never true 08/28/19 25 Within the past 12 months, t he food you bought just didn't last and you didn't have money to get more. Never true 08/27/2024 PRAPARE - Transportation Answer Date Re corded In the past 12 months, has l ack of transportation kept you from medical appointments or from getting medications? No 08/09 In the past 12 months, has l ack of transportation kept you from meetings, work, or from getting things needed for daily living? No 08/27/2024 Housing Stability Vital Sign Answer Raymond e Recorded In the last 12 months, was t here a time when you were not able to pay the mortgage or rent on time? No 08/27/2024 In the past 12 months, how m any times have you moved where you were living? 0 08/27/2024 At any time in the past 12 m [facility], were you homeless or living in a retirement (including now)? No 08/27/2024 Comments No Sex and Gender Information Value Date Recorded Sex Assigned at Not on file Legal Sex Female 3:11 PM CDT Gender Identity Not on file Sexual Orientation Not on file Last Filed Vital Signs Vital Sign Reading Time Taken Comments Blood Pressure 121/80 01/14/2025 11:45 AM CDT Pulse 83 01/14/2025 11:45 AM CDT Temperature 36.1 C (96.9 F) 01/14/2025 11:45 AM CDT Respiratory Rate 20 11/13/2024 2:29 PM CDT Oxygen Saturation 100% 01/14/2025 11:45 AM CDT Inhaled Oxygen Concentration - - Weight 106.1 kg (234 lb) 01/14/2025 11:45 AM CDT Height 160 cm (5' 3) 01/14/2025 11:45 AM CDT Body Mass Index 41.45 01/14/2025 11:45 AM CDT Plan of Treatment Upcoming Encounters Date Type Department Care Team (Late st Contact Info) Description 01/21/2025 3:30 PM CDT Video Visit [facility] - Neurology [facility] [facility] [place] [phone] Ora Wbeb FACILITIES ENGINEERING MANAGER-MUSIC PRODUCER [address] [place] [phone] 01/27/2025 4:30 PM CDT Video Visit [facility] [address] [place] [address], [facility] [address] [place] [address] 02/11/2025 3:45 PM CDT Clinical Support [facility] [address] [place] [address], [facility] [address] [place] [address] 02/15/2025 2:40 PM CDT Office Visit [facility] [address] [place] [address], [facility] [address] [place] [address] [place] [id number] [address] [address] 02/24/2025 8:15 PM CDT Appointment [facility] - Sleep Lab [address] [place] [phone] [place] [phone] [address] [address] 03/17/2025 2:15 PM CDT Office Visit [facility] [address] [place] [address], [address] [address] Adina Bowen, FACILITIES ENGINEERING MANAGER-MUSIC PRODUCER [address] [phone] 03/18/2025 8:00 AM CDT Office Visit [facility] - ENT [address] [facility] [place] [phone] Emiliano Boyce MD [address] [facility] [address] [place] [address] 04/09/2025 11:30 AM CDT Office Visit [facility] - Nephrology [facility] [facility] [place] [phone] Ania Lucia MD [address] [place] [address] [place] [address] Health Maintenance Due Date Last Done Comments LIPID TESTING 1982 MAMMOGRAM 1982 DTAP/TDAP/TD VACCINES (6 - Tdap) 1993 02/01/1988, 02/04/1987, 03/30/1983, Additional history exists HEPATITIS C SCREENING 03/23/2000 HEPATITIS B VACCINE (1 of 3 - 19+ 3-dose series) 2001 PNEUMOCOCCAL VACCINE (1 of 2 - PCV) 2001 HPV VACCINE (1 - 3-dose SCDM series) 2009 COVID-19 VACCINE (3 - season) 2024 10/22/2020, 10/01/2020 INFLUENZA VACCINE (#1) 2025 03/22/2014 PAP SMEAR 08/19/2027 08/18/2024, 08/18/2024 SCREENING FOR DIABETES 10/17/2027 , 08/28/2024, 08/27/2024, Additional history exists ZOSTER VACCINE (1 of 2) 2032 HIV SCREENING Completed 08/18/2024 DEPRESSION SCREENING Completed 09/17/2024 HIB VACCINE Aged Out No longer eligi ble based on patient's age to complete this topic MENINGOCOCCAL (Group B) VACCINE SHARED DECISION-MAKING Aged Out No longer eligible based on patient's age to complete this topic MENINGOCOCCAL GROUPS A/C/Y/W VACCINE Aged Out No longer eligible based on patient's age to complete this topic Procedures Procedure Name Priority Date/Time Associated Diagnosis Comments EYE EXAM 12/17/2024 LITHOLINK 24HR URINE PANEL QUANT (LC DIRECT SHIP) Routine 12/14/2024 9:45 AM CDT Renal stone Kidney stones Vitamin D deficiency EYE EXAM 11/27/2024 FUNDUS PHOTO BOTH EYES Routine 11/10/2024 2:06 PM CDT IIH (idiopathic intracranial hypertension) SINGH AUTO VISUAL FIELD EXTENDED Routine 11/10/2024 2:06 PM CDT IIH (idiopathic intracranial hypertension) OPTIC NERVE ANALYSIS OCT Routine 11/10/2024 2:06 PM CDT IIH (idiopathic intracranial hypertension) AUDIOLOGY/TYMPANOMETR Y ORDER Routine 11/05/2024 9:56 AM CDT COMPREHENSIVE METABOLIC PANEL STAT 10/16/2024 6:09 PM CDT from Last 3 Months or Most Recently Relevant to Health Maintenance Results * EYE EXAM (12/17/2024) Anatomical Region Laterality Modality Other Narrative 12/17/2024 Ordered by an unspecified provider. us Scanned Document SCANNING ONLY Final Result * (ABNORMAL) LITHOLINK 24HR URINE PANEL QUANT (LC DIRECT SHIP) (12/14/2024 9:45 AM CDT) Cystine Urine Qualitative Neg Negative [facility] INSURANCE BILL Volume Urine (Preservative) 3,290 500 - 4,000 mL/24 hr [facility] INSURANCE BILL Calcium Oxalate Saturation 5.06(L) 6.00 - 10.00 [facility] INSURANCE BILL Calcium Urine 152 <200 mg/24 hr [facility] INSURANCE BILL Oxalate Urine 46(H) 20 - 40 mg/24 hr [facility] INSURANCE BILL Citrate Urine 159(L) >550 mg/24 hr [facility] INSURANCE BILL Calcium Phosphate Saturation 0.71 0.50 - 2.00 [facility] INSURANCE BILL pH Urine 24 Hour 6.600(H) 5.800 - 6.200 [facility] INSURANCE BILL Uric Acid Saturation 0.09 <1.00 [facility] INSURANCE BILL Uric Acid Urine 475 <750 mg/24 hr [facility] INSURANCE BILL Sodium Urine <33(L) 50 - 150 mmol/24 hr [facility] INSURANCE BILL Potassium 24 Hour Urine 49 20 - 100 mmol/24 hr [facility] INSURANCE BILL Magnesium Urine 81 30 - 120 mg/24 hr [facility] INSURANCE BILL Phosphorus Urine 623 600 - 1,200 mg/24 hr [facility] INSURANCE BILL Ammonium Urine 32 15 - 60 mmol/24 hr [facility] INSURANCE BILL Chloride mmol/24 Hour Urine <49(L) 70 - 250 mmol/24 hr [facility] INSURANCE BILL Sulfate Urine 25 20 - 80 meq/24 hr [facility] INSURANCE BILL Urea Nitrogen 24 Hour Urine 5.41(L) 6.00 - 14.00 g/24 hr [facility] INSURANCE BILL Protein Catabolic Rate 0.5(L) 0.8 - 1.4 g/kg/24 hr [facility] INSURANCE BILL Creatinine Urine 1,337 Not Applic. mg/24 hr [facility] INSURANCE BILL Creatinine/Kg Body Weight 12.6 8.7 - 20.3 mg/24 hr/kg [facility] INSURANCE BILL Calcium/Kg Body Weight 1.4 <4.0 mg/24 hr/kg [facility] INSURANCE BILL Calcium/Creatinine Ratio Urine 113 51 - 262 mg/g creat [facility] INSURANCE BILL Comment Litholink Note [facility] INSURANCE BILL Comment: At least one urine analyte was below the lower limit of the assay. In calculation of supersaturation values, the lower limit for that analyte was used. Urine TIMED URINE SPECIMEN / Unknown 12/14/2024 9:45 AM CDT 12/15/2024 Narrative [facility] INSURANCE BILL - 12/19/2024 6:09 AM CDT Performed at: [address] [place] [id number] Paper Pattern Inspector: Saroj Raya PhD, Phone: [phone] us Claude Ross MD LAB - URINE CHEMISTRY ORDERAB LES Final Result [facility] INSURANCE BILL [address] [place] [address] * EYE EXAM (11/27/2024) Anatomical Region Laterality Modality Other Narrative 11/27/2024 Ordered by an unspecified provider. us Scanned Document SCANNING ONLY Final Result * FUNDUS PHOTO BOTH EYES (11/10/2024 2:06 PM CDT) Anatomical Region Laterality Modality Head External-Camera Photography Narrative 11/10/2024 4:08 PM CDT Images from the original result were not included. Fundus photos OU: Papilledema - Grade 2 OD, Grade 3 OS us Claude Ross MD OPHTHALMOLOGY SCHED ORD W PAC S Final Result * SINGH AUTO VISUAL FIELD EXTENDED (11/10/2024 2:06 PM CDT) Anatomical Region Laterality Modality Head External-Camera Photography Narrative 11/10/2024 4:08 PM CDT Images from the original result were not included. Singh VF 24-2: 11/10/2024: SN and IN defect OD, improved IN defect OS, fair reliability OD, high FP OS (34 OD, 36 OS), (96% OD, 97% OS), (-2.7 OD, -3.73 OS). Result [facility] us Claude Ross MD OPHTHALMOLOGY SCHED ORD W PAC S Final Result * OPTIC NERVE ANALYSIS OCT (11/10/2024 2:06 PM CDT) Anatomical Region Laterality Modality Head External-Camera Photography Narrative 11/10/2024 4:08 PM CDT Images from the original result were not included. Central RNFL OU: 121, 110 Result Richard Ross MD OPHTHALMOLOGY SCHED ORD W PAC S Final Result * AUDIOLOGY/TYMPANOMETRY ORDER (11/05/2024 9:56 AM CDT) Keren Schmidt AuD - 11/05/2024 9:56 AM CDT History: Sylvester Ogden arrived for a hearing evaluation. Patient reports ear fullness/stuffiness, tinnitus, dizziness and occasional ear pain. There is not a history of noise exposure. There is not a family history of hearing loss. There is not a history of surgery on either ear(s). Results: Puretone air/bone conduction testing revealed normal hearing in the right ear and a normal sloping to mild SN hearing loss in the left ear. Speech understanding was excellent in the right ear and excellent in the left ear. Immittance measures revealed a Type A tympanogram in the right ear, indicating normal middle ear function. Results for the left ear revealed a Type A tympanogram, indicating normal middle ear function in that ear. These results were discussed in detail with the patient and all pertinent questions were answered. Recommendations: 1) ENT consult. 2) Re check per medical recommendation, annually, or if a change in hearing is suspected. 3) Hearing protection in noise. 4) Trial with amplification LT pending interest/medical clearance. Amari Almodovar. [facility] Clinical Java Web User Interface Developer [facility]Department of Otolaryngology/Audiology [facility] for [facility] [address] [place] [phone] Keren Fitzpatrick AUDIOLOGY SERVICES ORDERABLES F inal Result * (ABNORMAL) COMPREHENSIVE METABOLIC PANEL (10/16/2024 6:09 PM [facility]) BUN 10 7 - 26 mg/dL 10/16/2024 6:39 PM [facility] Creatinine 0.58 0.56 - 0.96 mg/dL 10/16/2024 6:39 PM [facility] Sodium 139 136 - 145 mmol/L 10/16/2024 6:39 PM [facility] Potassium 3.2(L) 3.5 - 4.5 mmol/L 10/16/2024 6:39 PM [facility] Chloride 113(H) 98 - 107 mmol/L 10/16/2024 6:39 PM [facility] CO2 16(L) 22 - 29 mmol/L 10/16/2024 6:39 PM [facility] Glucose 89 70 - 99 mg/dL 10/16/2024 6:39 PM [facility] Calcium 9.1 8.4 - 10.2 mg/dL 10/16/2024 6:39 PM [facility] Protein Total 7.9 6.0 - 8.3 g/dL 10/16/2024 6:39 PM [facility] Albumin 4.2 3.4 - 5.0 g/dL 10/16/2024 6:39 PM [facility] Bilirubin Total 0.2 0.2 - 1.2 mg/dL 10/16/2024 6:39 PM [facility] Alkaline Phosphatase 72 40 - 150 U/L 10/16/2024 6:39 PM [facility] ALT 13 5 - 55 U/L 10/16/2024 6:39 PM [facility] AST 15 5 - 34 U/L 10/16/2024 6:39 PM [facility] Anion Gap 10 6 - 16 10/16/2024 6:39 PM [facility] BUN/Creatinine Ratio 17 7 - 23 10/16/2024 6:39 PM [facility] Osmolality Calculated 287 275 - 295 mOsm/kg 10/16/2024 6:39 PM [facility] Albumin/Globulin Ratio 1.1 1.1 - 2.3 10/16/2024 6:39 PM [facility] eGFR by CKD-EPI >90 >=90 mL/min/1.7 3 m2 10/16/2024 6:39 PM [facility] Blood BLOOD SPECIMEN / Unknown Venipuncture / Unknown 10/16/2024 6:09 PM T 10/16/2024 6:14 PM [facility] us Jaspreet Cam MD LAB - CHEMISTRY ORDERABLES F inal Result Performing Organization Address [facility]/State/ZIP Co de Phone Number [facility] [address] [place] [address], [facility] [phone] from Last 3 Months or Most Recently Relevant to Health Maintenance Insurance [facility] Advance Directives * Full Code (Latest Code Status on File) Date Activated Date Inactivated Comments 08/26/2024 3:26 AM 08/28/2024 7:32 PM Care Teams Financial Sales Representative Relationship Specialty Start Date End Date Farshad Rodriguez MD [address] [place] [id number] PCP - General Family Medicine 08/26/24
--- OUTSIDE RECORDS SUMMARY | 2025-01-18 12:25 | XMS_ITS | Encounter Summary ---
Author Organization [facility] Health Address [address] [facility] [place] [address] Care Team Providers Care Spikemaking Supervisor Name Role Phone Farshad Rodriguez MD Primary Care Provider [phone] Encounter Details Date Type Department Care Team (Late st Contact Info) Description 08/27/2024 Ophth Exam [facility] - Ophthalmology [address] [place] [phone] Claude Ross MD [address] [place] [address] [place] [address] Social History Tobacco Use Types Packs/Day Years Used Date Smoking Tobacco: Never Smokeless Tobacco: Never AUDIT-C Answer Date Recorded Q1: How often [...] and heating? Not hard at all 08/27/2024 [facility] [place] of Occupat ional Health - Occupational Stress [...] any time in the past 12 m [facility], were you homeless or living in a alf (including now)? No 08/27/2024 Comments No Sex and Gender Information Value Date Recorded Sex Assigned at Not on file Legal Sex Female 3:11 PM CDT Gender Identity Not on file Sexual Orientation Not on file documented as of this encounter Functional Status * Question Answer Date of Assessment Author Q1: How often do you have a drink containing alcohol? Monthly or less 08/27/2024 3:38 PM Shauna Upton RN Q2: How many drinks containing alcohol do you have on a typical day when you are drinking? 1 or 2 08/27/2024 3:38 PM DELT Jessie Helm RN Q3: How often do you have six or more drinks on one occasion? Never 08/27/2024 3:38 PM Shauna Upton , GISELA * Audit-C Score Answer Date of Assessment Author 1 08/27/2024 3:38 PM Shauna Upton RN * Is person deaf or have serious hearing difficulty? Answer Date of Assessment Author No 08/27/2024 3:39 PM CDT Shauna Helm RN * Is person blind or have serious difficulty seeing? Answer Date of Assessment Author No 08/27/2024 3:39 PM CDT Shauna Helm RN * Does person have serious difficulty walking/climbing stairs? Answer Date of Assessment Author No 08/27/2024 3:39 PM DELT Shauna Helm RN * Does person have difficulty dressing/bathing? Answer Date of Assessment Author No 08/27/2024 3:39 PM CDT Shauna Helm RN * Does person have difficulty doing errands alone? Answer Date of Assessment Author No 08/27/2024 3:39 PM DELT Shauna Helm RN documented as of this encounter Mental Status * Does person have difficulty concentrating/remembering/making decisions? Answer Entry Date Author No 08/27/2024 3:39 PM Shauna Upton RN documented in this encounter Plan of Treatment Upcoming Encounters Date Type Department Care Team (Late st Contact Info) Description 01/21/2025 3:30 PM CDT Video Visit [facility] - Neurology [address] [place] [phone] Ora Webb APRN-[address] [place] [address] 01/27/2025 4:30 PM CDT Video Visit [facility] Weight Management Services [address] [place] [phone] 02/11/2025 3:45 PM CDT Clinical Support [facility] [address] [place] [address] 02/15/2025 2:40 PM CDT Office Visit [facility] Weight Management Services [address] [place] [address] [phone] Kathy Cortes MD [address] [place] [address] 02/24/2025 8:15 PM CDT Appointment [facility] Sleep Services - Sleep Lab [address] [facility] [place] [phone] [place] [address] [facility] [address] [place], [place] [phone] 03/17/2025 2:15 PM CDT Office Visit [facility] Weight Management Services [address] [facility], [address] [place] [address] Adina Bowen, EQUIPMENT APPLICATION SPECIALIST-IT ADMIN [address] [facility] [address] [place] [address] 03/18/2025 8:00 AM CDT Office Visit [facility] - ENT [address] [place] [address], [place] [phone] Emiliano Boyce MD [address] [place] [address] [address] [place] [address] 04/09/2025 11:30 AM CDT Office Visit [facility] - Nephrology [address] [place] [address], [facility] [place] [phone] Ania Lucia MD [address] [place] [address] [place] [address] documented as of this encounter Visit Diagnoses Not on filedocumented in this encounter Care Teams Spikemaking Supervisor Relationship Specialty Start Date End Date Farshad Rodriguez MD [address] [facility] [address] [place] [address] PCP - General Family Medicine 08/26/24 documented as of this encounter
--- OUTSIDE RECORDS SUMMARY | 2025-01-18 12:25 | XMS_ITS | Encounter Summary ---
Author Organization [facility] Address Critical access hospital[address] [place] [address] Care Team Providers Care Siebel Architect Name Role Phone Sherri Herman [facility] Primary Care Provider [phone] Encounter Details Date Type Department Care Team (Late st Contact Info) Description 12/23/2024 MyChart Message Enc [facility] [address] [place] [address] Johana Magana, ANP- Three [facility]. [address] [place], [place] [id number] Test Results Social History Tobacco Use Types Packs/Day Years Used Date Smoking Tobacco: Never Smokeless Tobacco: Never Alcohol Use Standard Drinks/Week Comments Yes 5 (1 standard drink = 0.6 oz pur e alcohol) occ Comments Unknown Sex and Gender Information Value Date Recorded Sex Assigned at Female 12/22/2024 3:45 PM CDT Legal Sex Female 7:51 PM CDT Gender Identity Not on file Sexual Orientation Not on file documented as of this encounter Plan of Treatment Upcoming Encounters Date Type Department Care Team (Late st Contact Info) Description 03/01/2025 11:45 AM CDT Office Visit [facility] [address] [place] [address] Con Fontana MD Three [facility] [address] [place], [place] [phone] documented as of this encounter Visit Diagnoses Not on filedocumented in this encounter Care Teams Siebel Architect Relationship Specialty Start Date End Date Sherri Herman FNP PCP - General NURSE PRACTITIONER 01/03/22 documented as of this encounter
--- OUTSIDE RECORDS SUMMARY | 2025-01-18 12:25 | XMS_ITS | Encounter Summary ---
Author Organization [facility] Health Address [address] [facility] [place] [address] Care Team Providers Care Direct Mail Clerk Name Role Phone Farshad Rodriguez MD Primary Care Provider [phone] Encounter Details Date Type Department Care Team (Late st Contact Info) Description 01/14/2025 Office Visit External [facility] Weight Management Services [address] [place] [address] [place] [address] [address] Social History Tobacco Use Types Packs/Day Years [...] Recorded Patient Health Questionnaire-2 Score 0 09/17/2024 [facility] [place] of Occupat ional Health - Occupational Stress [...] money to buy more. Never true 08/28/19 Within the past 12 months, t he [...] any time in the past 12 m [facility], were you homeless or living in a custodial (including now)? No 08/27/2024 Comments No Sex and Gender Information Value Date Recorded Sex Assigned at Not on file Legal Sex Female 3:11 PM CDT Gender Identity Not on file Sexual Orientation Not on file documented as of this encounter Functional Status * Is person deaf or have serious hearing difficulty? Answer Date of Assessment Author No 08/27/2024 3:39 PM CDT Shauna Helm RN * Is person blind or have serious difficulty seeing? Answer Date of Assessment Author No 08/27/2024 3:39 PM CDT Shauna Helm RN * Does person have serious difficulty walking/climbing stairs? Answer Date of Assessment Author No 08/27/2024 3:39 PM CDT Shauna Helm, GISELA * Does person have difficulty dressing/bathing? Answer Date of Assessment Author No 08/27/2024 3:39 PM CDT Shauna Helm RN * Does person have difficulty doing errands alone? Answer Date of Assessment Author No 08/27/2024 3:39 PM CDT Shauna Helm, RN documented as of this encounter Mental Status * Does person have difficulty concentrating/remembering/making decisions? Answer Entry Date Author No 08/27/2024 3:39 PM CDT Shauna Helm RN documented in this encounter Plan of Treatment Upcoming Encounters Date Type Department Care Team (Late st Contact Info) Description 01/21/2025 3:30 PM CDT Video Visit [facility] - Neurology [address] [place] [address], [place] [address] Ora Webb APRN-PATTERN FITTER [address] [place] [phone] 01/27/2025 4:30 PM CDT Video Visit [facility] Weight Management Services [address] [place] [address] 02/11/2025 3:45 PM CDT Clinical Support [facility] Weight Management Services [address] [place] [address] 02/15/2025 2:40 PM CDT Office Visit [facility] Weight Management Services [address] [place] [address], [address] [address] [place] [address] [address] [address] 02/24/2025 8:15 PM CDT Appointment [facility] Sleep Services - Sleep Lab [facility] [address] [phone] [place] [address] Yani Lockhart [facility] [address] [place] [address] 03/17/2025 2:15 PM CDT Office Visit [facility] Weight Management Services [address] [place] [address] Adina Bowen, OIL WELL CABLE TOOL DRILLER-PATTERN FITTER [address] [place] [address] 03/18/2025 8:00 AM CDT Office Visit [facility] - ENT [address] [place] [address], [place] [phone] Emiliano Boyce MD [facility] [facility] [address] [place] [address] 04/09/2025 11:30 AM CDT Office Visit [facility] - Nephrology [address] [place] [address], [facility] [phone] Ania Lucia MD [address] [place] [address] [address] [place] [address] documented as of this encounter Visit Diagnoses Not on filedocumented in this encounter Care Teams Direct Mail Clerk Relationship Specialty Start Date End Date Farshad Rodriguez MD [address] [place] [address] 3 [place] [address] PCP - General Family Medicine 08/26/24 documented as of this encounter
--- OUTSIDE RECORDS SUMMARY | 2025-01-18 12:25 | XMS_ITS | Encounter Summary ---
Author Organization [facility] Health Address [address] [facility] [place] [address] Care Team Providers Care Petrologist Name Role Phone Farshad Rodriguez MD Primary Care Provider [phone] Encounter Details Date Type Department Care Team (Late st Contact Info) Description 08/26/2024 Ophth Exam [facility] - Ophthalmology [address] [place] [address] Td Barraza, DO [address] [facility] [place] [address] Social History Tobacco Use Types [...] and heating? Not hard at all 08/27/2024 [facility] [place] of Occupat ional Health - Occupational Stress [...] any time in the past 12 m [facility] [place], were you homeless or living in a fdc (including now)? No 08/27/2024 Comments No Sex and Gender Information Value Date Recorded Sex Assigned at Not on file Legal Sex Female 3:11 PM DELT Gender Identity Not on file Sexual Orientation [...] occasion? Never 08/27/2024 3:38 PM Shauna Upton RN * Audit-C Score Answer Date of Assessment Author 1 08/27/2024 3:38 PM Shauna Upton RN documented as of this encounter Plan of Treatment Upcoming Encounters Date Type Department Care Team (Late st Contact Info) Description 01/21/2025 3:30 PM CDT Video Visit [facility] - Neurology [address] [place] [address], [facility] [place] [address] Ora Webb APRN-BACTERIOLOGY TEACHER [address] [place] [address] [place] [address] 01/27/2025 4:30 PM CDT Video Visit [facility] Health Weight Management Services [address] [place] [address], [address] [address] 02/11/2025 3:45 PM CDT Clinical Support [facility] Weight Management Services [address] [place] [address], [address] [address] 02/15/2025 2:40 PM CDT Office Visit [facility] Weight Management Services [address] [place] [address], [address] [address] [place] [address] Yani Lockhart [address] [address] 02/24/2025 8:15 PM CDT Appointment [facility] Sleep Services - Sleep Lab [address] [place] [phone] [place] [address] [address]ani [address] [address] 03/17/2025 2:15 PM CDT Office Visit [facility] Health Weight Management Services [address] [place] [address], [address] [address] Adina Bowen GOVERNMENT MINISTER-BACTERIOLOGY TEACHER [address] [address] [phone] 03/18/2025 8:00 AM CDT Office Visit [facility] - ENT [address] [place] [address], [place] [address] Emiliano Boyce MD [address] [place] [address] [address] [place] [address] 04/09/2025 11:30 AM CDT Office Visit [facility] - Nephrology [address] [facility], [place] [address] Ania Lucia MD [address] [place] [address] [place] [address] documented as of this encounter Visit Diagnoses Not on filedocumented in this encounter Care Teams Petrologist Relationship Specialty Start Date End Date Farshad Rodriguez MD [address] [place] [address] 3 [place] [address] PCP - General Family Medicine 08/26/24 documented as of this encounter
--- OUTSIDE RECORDS SUMMARY | 2025-01-18 12:25 | XMS_ITS | Clinical Summary ---
Author Organization [facility] Address [address] [place] [address] Care Team Providers Care Residential Program Director Name Role Phone Sherri Herman Primary Care Provider [phone] Allergies Active Allergy Reactions Criticality Noted Date Comments Tape Rash Medium 11/27/2024 Medications acetaZOLAMIDE ER (DIAMOX) 500 MG 12 hr capsule Take 3 capsules (1,500 mg total) by mouth 2 (two) times daily. 5 Active famotidine (PEPCID) 20 MG tablet Take 1 tablet (20 mg total) by mouth nightly at bedtime. 5 Active azelastine (ASTELIN) 0.1 % nasal spray 1-2 sprays by Nasal route 2 (two) times daily. 5 Active fluticasone propionate (FLONASE) 50 MCG/ACT nasal spray 1 spray by Each Nostril route daily. 5 Active potassium citrate CR (UROCIT-K) 10 MEQ (1080 MG) tablet Take 1 tablet (10 mEq total) by mouth 3 (three) times daily with meals. 5 Active ferrous sulfate, 65 mg elemental, 325 (65 FE) MG tablet Take 1 tablet (325 mg total) by mouth daily with breakfast. 5 Active butalbital-acetamin ophen-caffeine (FIORICET) 50-300-40 MG capsule Take 1 capsule by mouth every 4 (four) hours as needed. 5 Active cyclobenzaprine (FLEXERIL) 5 MG tablet Take 1 tablet (5 mg total) by mouth as needed. Active vitamin D2, ergocalciferol, (DRISDOL) 1.25 mg capsule Take 1 capsule (1.25 mg total) by mouth once a week. 5 Active ondansetron (ZOFRAN-ODT) 4 MG disintegrating tablet Take 1 tablet (4 mg total) by mouth as needed. 5 Active traZODone (DESYREL) 100 MG tablet Take 1 tablet (100 mg total) by mouth nightly as needed for Sleep. Active Active Problems Problem Noted Date Diagnosed Date Obesity, Class III, BMI 40-49.9 (morbid obesity) 05/02/2022 Chronic diastolic heart failure ([facility] ) 05/02/2022 Dyslipidemia 05/02/2022 Chiari malformation type I ([facility]) Encounters Date Type Department Care Team Description 12/23/2024 MyChart Message Enc [facility] [address] [place] [phone] Johana Magana ANP-BC Test Results 12/23/2024 Results Follow-Up [place] [address] [phone] Lucinda Reeves RN USE ECHOCARDIOGRAM 12/22/2024 3:45 PM CDT - 12/22/2024 11:59 PM CDT Hospital Encounter [facility] [place] [address] Con Fontana MD Discharge Disposition: Home or Self Care (Routine Discharge) 12/22/2024 Travel 11/30/2024 12:30 PM CDT Office Visit [place] [address] [phone] Con Fontana MD Lipids (Office visit) 11/30/2024 Telephone [facility] [place] [id number] [phone] Esteban Blanc RMA Schedule Test (Echo) 11/30/2024 Travel from Last 3 Months Immunizations Immunization Administration Dates Next Due Dtp [...] Sign Reading Time Taken Comments Blood Pressure 106/60 11/30/2024 12:14 PM CDT Pulse 81 11/30/2024 12:14 PM CDT Temperature - - Respiratory Rate - - Oxygen Saturation 100% 11/30/2024 12:14 PM CDT Inhaled Oxygen Concentration - - Weight 109.8 kg (242 lb) 11/30/2024 12:14 PM CDT Height 162.6 cm (5' 4) 11/30/2024 12:14 PM CDT Body Mass Index 41.54 11/30/2024 12:14 PM CDT Plan of Treatment Upcoming Encounters Date Type Department Care Team (Late st Contact Info) Description 03/01/2025 11:45 AM CDT Office Visit [facility] [phone] [place] [address] Con Fontana MD [facility] [address] [place] [address] Health Maintenance Due Date Last Done Comments Annual Physical 1985 DTaP, Tdap and Td Vaccines (6 - Tdap) 1993 02/01/1988, 02/04/1987, 03/30/1983, Additional history exists Hepatitis C 2000 Hepatitis B Vaccines (1 of 3 - 19+ 3-dose series) 2001 Pneumococcal Vaccine: Pediatrics (0 to 5 Years) and At-Risk Patients (6 to 49 Years) (1 of 2 - PCV) 2001 HPV Vaccines (1 - 3-dose SCDM series) 2009 Mammogram Screening 2022 COVID-19 Vaccine (3 - season) 2024 10/22/2020, 10/01/2020 Cervical Cancer Screening Pap Smear (Age 30 to 64) Every 3 Years 08/19/2027 08/18/2024, 08/18/2024, 08/18/2024 Cervical Cancer Screening Pap with HPV Testing (Age 30 to 64) Every 5 Years 08/18/2029 08/18/2024 Cervical Cancer Screening with HPV 08/18/2029 Meningococcal B Vaccine Aged Out No l onger eligible based on patient's age to complete this topic Meningococcal Vaccine Aged Out No katia vandana eligible based on patient's age to complete this topic RSV Immunizations Under 20 Months Aged Out No longer eligible based on patient's age to complete this topic Procedures Procedure Name Priority Date/Time Associated Diagnosis Comments USE ECHOCARDIOGRAM Routine 12/22/2024 4: 12 PM CDT Chest discomfort HONG (dyspnea on exertion) Tachycardia from Last 3 Months Results * USE ECHOCARDIOGRAM (12/22/2024 4:12 PM CDT) Anatomical Region Laterality Modality Cardiac Echocardiogram 12/22/2024 3:51 PM CDT Narrative 12/23/2024 7:29 AM CDT Echocardiography Report Pat.Name: SYLVESTER OGDEN Pat.ID: [id number] St.Date: 12/22/2024 Exam Time: 3:51:00 PM Study Type:ECHO WITH CARDIAC DOPPLER COMP Height: 68 in Weight: 196 lb BSA: 2.03 m2 Age: 10 1980,44Y Sex: F BP: 107/71 Sonogrphr: Deborah Joe Pat. Stat.:Outpatient CPT - 4: [id number] Reason for Study:Dyspnea on exertion Procedures: 2D, M-mode, Doppler, Color Flow, The study quality is technically adequate. Race: B ++++++++++++++++++++++++++++++++++++ SUMMARY: ++++++++++++++++++++++++++++++++++++ The left ventricular size is normal. Estimated left ventricular ejection fraction is 65-70%. No left ventricular hypertrophy. Left ventricular diastolic function is normal. The right ventricular size is normal. Right ventricular systolic function is normal. The left atrial volume is normal ( less than 34 ml/M2). The right atrial size is normal. Mild to moderate mitral regurgitation. ++++++++++++++++++++++++++++++++++++ FINDINGS: ++++++++++++++++++++++++++++++++++++ LV: The left ventricular size is normal. The left ventricular systolic function is normal. Estimated left ventricular ejection fraction is 65-70%. No left ventricular hypertrophy. Left ventricular diastolic function is normal. WM: Wall motion appears normal in all segments. RV: The right ventricular size is normal. Right ventricular systolic function is normal. IVS: Intraventricular septum is normal. LA: The left atrial volume is normal ( less than 34 ml/M2). RA: The right atrial size is normal. IAS: Atrial septum is normal. HEBER: No evidence of pericardial effusion. AO: Normal aortic root. PA: Estimated right atrial pressure of 3 mmHg. SVn: Inferior vena cava is normal. Inferior vena cava shows >50% collapse with respiration consistent with normal right atrial pressure. AV: The aortic valve is not well visualized. No evidence of aortic valve stenosis. No evidence of aortic valve regurgitation. MV: Mild to moderate mitral regurgitation. No evidence of mitral stenosis. PV: No evidence of pulmonic valve stenosis. No evidence of pulmonic regurgitation. TV: A trace of tricuspid regurgitation. No evidence of tricuspid valve stenosis. ++++++++++++++++++++++++++++++++++++ MEASUREMENTS: ++++++++++++++++++++++++++++++++++++ DOPPLER Pulmonary Veins PVnpkVeld 39 cm/s AR-wave velocit 0.21 m/s S1-wave velocit 0.59 m/s PVn A Dur 0.083 second AV Regurg Flow AV TVI 165 cm MV Regurg Flow MV mnPG 78.6 mmHg MV pkPG 92.5 mmHg MV mnVel 441 cm/s MV pkVel 481 cm/s (60-130)+* TV Forward Flow TV E/A 1.21 Aortic Valve Cardiovascular 2.17 cm Aortic Root Amilcar 2.48 cm LVOT/AoV (MAINTENANCE ENGINEER OIL FIELD) ( 0.46 Left atrial amilcar 3.82 cm AV Antegrade Flow Peak Velocity ( 1.75 m/s Mean Velocity ( 1.1 m/s Velocity Time I 30.2 cm AV Antegrade Flow Simplified Bernoulli Gradient pressu 12.2 mmHg Gradient pressu 5.5 mmHg AV Continuity Equation by Velocity Time Integral Aortic Valve Ar 2.06 cm2 AoV Area Index 1.01 Left Ventricle Stroke Volume ( 62.2 ml Cardiac Output 5.04 liter per minute LV Antegrade Flow Peak Velocity ( 0.8 m/s Mean Velocity ( 0.6 m/s Velocity Time I 16.8 cm LV Antegrade Flow Simplified Bernoulli Gradient pressu 2.5 mmHg Gradient pressu 1.5 mmHg Mitral Valve Myocardial Velo 17.2 centimeter/second Mean Myocardial 13.3 centimeter/second Myocardial Velo 9.4 centimeter/second PV Antegrade Flow Peak Velocity ( 1.53 m/s Mean Velocity ( 1.09 m/s Velocity Time I 28.2 cm PV Antegrade Flow Simplified Bernoulli Gradient pressu 9.3 mmHg Gradient pressu 5 mmHg Tricuspid Valve Tricuspid Valve 0.5 m/s Tricuspid Valve 0.41 m/s TV Regurgitant Flow MaximumTricuspi 2.11 m/s MaximumTricuspi 17.9 mmHg 2D Left Ventricle LVIDd 4.55 cm (3.6-5.2) LVEDV BP 72.7 ml LV EDV 64.9 ml LVESV BP 24.2 ml LV ESV 24.6 ml LV EF 62.1 % LV EDV 75.6 ml Left Ventricula -19.2 % LV ESV 23.2 ml LV EF 69.3 % LV EF BP 66.7 % Left Ventricula -15.2 % Left Ventricula -17.2 % Left Atrium Left Atrium Vol 27.8 ml/m2 LA Biplane Left Atrium Vol 56.4 ml LA Single Plane Left Atrium cheri 5.07 cm Left Atrium cheri 4.63 cm Left Atrium Vol 46 ml Left Atrium Vol 63.5 ml LV Teichholz Interventricula 0.9 cm Left Ventricle 3.43 cm Left Ventricle 1.03 cm Heart rate 83 Heart beat per minute Right Atrium RA sys Area 17.5 cm2 Right Ventricle Right Ventricul 3.14 cm RVIDd 3.02 cm MMODE Left Ventricle LVIDd 4.84 cm (zsc -0.9) LV EF 63.2 % (45-90) LV%fs 34.3 % (28-41) LV Teichholz Interventricula 1.05 cm Left Ventricle 3.18 cm Left Ventricle 0.99 cm Tricuspid Valve Tricuspid annul 2.35 cm <Electronic Signature> 12/23/2024 07:29 AM Ana Dumont M.D. Procedure Note Ana Dumont MD - 12/23/2024 Echocardiography Report Pat.Name: SYLVESTER OGDEN Pat.ID: [id number] .Date: 12/22/2024 Exam Time: 3:51:00 PM Study Type:ECHO WITH CARDIAC DOPPLER COMP Height: 68 in Weight: 196 lb BSA: 2.03 m2 Age: 10 1980,44Y Sex: F BP: 107/71 Sonogrphr: Deborah Joe Pat. Stat.:Outpatient CPT - 4: [id number] Reason for Study:Dyspnea on exertion Procedures: 2D, M-mode, Doppler, Color Flow, The study quality is technically adequate. Race: B ++++++++++++++++++++++++++++++++++++ SUMMARY: ++++++++++++++++++++++++++++++++++++ The left ventricular size is normal. Estimated left ventricular ejection fraction is 65-70%. No left ventricular hypertrophy. Left ventricular diastolic function is normal. The right ventricular size is normal. Right ventricular systolic function is normal. The left atrial volume is normal ( less than 34 ml/M2). The right atrial size is normal. Mild to moderate mitral regurgitation. ++++++++++++++++++++++++++++++++++++ FINDINGS: ++++++++++++++++++++++++++++++++++++ LV: The left ventricular size is normal. The left ventricular systolic function is normal. Estimated left ventricular ejection fraction is 65-70%. No left ventricular hypertrophy. Left ventricular diastolic function is normal. WM: Wall motion appears normal in all segments. RV: The right ventricular size is normal. Right ventricular systolic function is normal. IVS: Intraventricular septum is normal. LA: The left atrial volume is normal ( less than 34 ml/M2). RA: The right atrial size is normal. IAS: Atrial septum is normal. HEBER: No evidence of pericardial effusion. AO: Normal aortic root. PA: Estimated right atrial pressure of 3 mmHg. SVn: Inferior vena cava is normal. Inferior vena cava shows >50% collapse with respiration consistent with normal right atrial pressure. AV: The aortic valve is not well visualized. No evidence of aortic valve stenosis. No evidence of aortic valve regurgitation. MV: Mild to moderate mitral regurgitation. No evidence of mitral stenosis. PV: No evidence of pulmonic valve stenosis. No evidence of pulmonic regurgitation. TV: A trace of tricuspid regurgitation. No evidence of tricuspid valve stenosis. ++++++++++++++++++++++++++++++++++++ MEASUREMENTS: ++++++++++++++++++++++++++++++++++++ DOPPLER Pulmonary Veins PVnpkVeld 39 cm/s AR-wave velocit 0.21 m/s S1-wave velocit 0.59 m/s PVn A Dur 0.083 second AV Regurg Flow AV TVI 165 cm MV Regurg Flow MV mnPG 78.6 mmHg MV pkPG 92.5 mmHg MV mnVel 441 cm/s MV pkVel 481 cm/s (60-130)+* TV Forward Flow TV E/A 1.21 Aortic Valve Cardiovascular 2.17 cm Aortic Root Amilcar 2.48 cm LVOT/AoV (MAINTENANCE ENGINEER OIL FIELD) ( 0.46 Left atrial amilcar 3.82 cm AV Antegrade Flow Peak Velocity ( 1.75 m/s Mean Velocity ( 1.1 m/s Velocity Time I 30.2 cm AV Antegrade Flow Simplified Bernoulli Gradient pressu 12.2 mmHg Gradient pressu 5.5 mmHg AV Continuity Equation by Velocity Time Integral Aortic Valve Ar 2.06 cm2 AoV Area Index 1.01 Left Ventricle Stroke Volume ( 62.2 ml Cardiac Output 5.04 liter per minute LV Antegrade Flow Peak Velocity ( 0.8 m/s Mean Velocity ( 0.6 m/s Velocity Time I 16.8 cm LV Antegrade Flow Simplified Bernoulli Gradient pressu 2.5 mmHg Gradient pressu 1.5 mmHg Mitral Valve Myocardial Velo 17.2 centimeter/second Mean Myocardial 13.3 centimeter/second Myocardial Velo 9.4 centimeter/second PV Antegrade Flow Peak Velocity ( 1.53 m/s Mean Velocity ( 1.09 m/s Velocity Time I 28.2 cm PV Antegrade Flow Simplified Bernoulli Gradient pressu 9.3 mmHg Gradient pressu 5 mmHg Tricuspid Valve Tricuspid Valve 0.5 m/s Tricuspid Valve 0.41 m/s TV Regurgitant Flow MaximumTricuspi 2.11 m/s MaximumTricuspi 17.9 mmHg 2D Left Ventricle LVIDd 4.55 cm (3.6-5.2) LVEDV BP 72.7 ml LV EDV 64.9 ml LVESV BP 24.2 ml LV ESV 24.6 ml LV EF 62.1 % LV EDV 75.6 ml Left Ventricula -19.2 % LV ESV 23.2 ml LV EF 69.3 % LV EF BP 66.7 % Left Ventricula -15.2 % Left Ventricula -17.2 % Left Atrium Left Atrium Vol 27.8 ml/m2 LA Biplane Left Atrium Vol 56.4 ml LA Single Plane Left Atrium cheri 5.07 cm Left Atrium cheri 4.63 cm Left Atrium Vol 46 ml Left Atrium Vol 63.5 ml LV Teichholz Interventricula 0.9 cm Left Ventricle 3.43 cm Left Ventricle 1.03 cm Heart rate 83 Heart beat per minute Right Atrium RA sys Area 17.5 cm2 Right Ventricle Right Ventricul 3.14 cm RVIDd 3.02 cm MMODE Left Ventricle LVIDd 4.84 cm (zsc -0.9) LV EF 63.2 % (45-90) LV%fs 34.3 % (28-41) LV Teichholz Interventricula 1.05 cm Left Ventricle 3.18 cm Left Ventricle 0.99 cm Tricuspid Valve Tricuspid annul 2.35 cm <Electronic Signature> 12/23/2024 07:29 AM Ana Dumont M.D. us oCn Fontana MD ECHO Final Res ult from Last 3 Months Insurance Care Teams Residential Program Director Relationship Specialty Start Date End Date Sherri Herman FNP PCP - General NURSE PRACTITIONER 01/03/22
--- OUTSIDE RECORDS SUMMARY | 2025-01-18 12:25 | XMS_ITS | Encounter Summary ---
Author Organization [facility] Health Address [address] [facility] [place] [address] Care Team Providers Care Process Developer Name Role Phone Farshad Rodriguez MD Primary Care Provider [phone] Encounter Details Date Type Department Care Team (Late st Contact Info) Description 08/26/2024 Ophth Exam [facility] - Ophthalmology [address] [place] [address] Hien Zaragoza MD [address] [place], [place] [id number] Social History Tobacco Use Types Packs/Day Years [...] and heating? Not hard at all 08/27/2024 [facility] [place] of Occupat ional Health - Occupational Stress [...] time in the past 12 m [facility], were you homeless or living in a [place] health care facility (including now)? No 08/27/2024 Comments No Sex [...] Video Visit [facility] - Neurology [address] [place] [address], [facility] [place] [address] Ora Webb APRN-CLOTH DYE RANGE OPERATOR [address] [place] [address] [place] [address] 01/27/2025 4:30 PM CDT Video Visit [facility] Health Weight Management Services [address] [place] [address], [facility] [address] [place] [address] 02/11/2025 3:45 PM CDT Clinical Support [facility] [address] [place] [address], [facility] [address] [place] [address] 02/15/2025 2:40 PM CDT Office Visit [facility] [address] [place] [address], [address] [address] [place] [address] [address]ani Lock[address] [address] 02/24/2025 8:15 PM CDT Appointment [facility] - Sleep Lab [address] [place] [phone] [place] [address] [address] [address] 03/17/2025 2:15 PM CDT Office Visit [facility] [address] [place] [address], [address] [address] Adina Bowen ASSEMBLER CRIMPER-CLOTH DYE RANGE OPERATOR [address] YANI LOCKHART [facility] [address] [place] [phone] 03/18/2025 8:00 AM CDT Office Visit [facility] - ENT [address] [place] [address], [place] [address] Emiliano Boyce MD [address] [place] [address] [address] [place] [address] 04/09/2025 11:30 AM CDT Office Visit [facility] - Nephrology [facility], [place] [address] Ania Lucia MD [address] [place] [address] [place] [address] documented as of this encounter Visit Diagnoses Not on filedocumented in this encounter Care Teams Process Developer Relationship Specialty Start Date End Date Farshad Rodriguez MD [address] [facility] [address] [place] [address] PCP - General Family Medicine 08/26/24 documented as of this encounter
--- OUTSIDE RECORDS SUMMARY | 2025-01-18 12:25 | XMS_ITS | Encounter Summary ---
Author Organization [facility] Health Address [address] [facility] [place] [address] Care Team Providers Care Gis Application Developer Name Role Phone Farshad Rodriguez MD Primary Care Provider [phone] Encounter Details Date Type Department Care Team (Late st Contact Info) Description 01/14/2025 Office Visit External [facility] Weight Management Services [address] [place] [address] [place] [address] [address] Social History Tobacco Use Types [...] Recorded Patient Health Questionnaire-2 Score 0 09/17/2024 [facility] of Occupat ional Health - Occupational Stress [...] any time in the past 12 m [facility], were you homeless or living in a group home (including now)? No 08/27/2024 Comments No Sex [...] Video Visit [facility] - Neurology [address] [place] [address], [place] [address] Ora Webb APRN-LOPPER [address] [place] [phone] 01/27/2025 4:30 PM CDT Video Visit [facility] Weight Management Services [address] [place] [address] 02/11/2025 3:45 PM CDT Clinical Support [facility] Weight Management Services [address] [place] [address] 02/15/2025 2:40 PM CDT Office Visit [facility] Weight Management Services [address] [place] [address], [address] [address] [place] [address] Yani Lock[address] [address] 02/24/2025 8:15 PM CDT Appointment [facility] Sleep Services - Sleep Lab [facility] [address] [phone] [place] [address] Yani Lockhart [facility] [address] [place] [address] 03/17/2025 2:15 PM CDT Office Visit [facility] Weight Management Services [address] [place] [address] Adina Bowen, RN PRIVATE DUTY-LOPPER [address] [place] [address] 03/18/2025 8:00 AM CDT Office Visit [facility] - ENT [address] [place] [address], [place] [phone] Emiliano Boyce MD [facility] [address] [place] [address] 04/09/2025 11:30 AM CDT Office Visit [facility] - Nephrology [address] [place] [address], [facility] [place] [phone] Ania Lucia MD [address] [place] [address] [address] [place] [address] documented as of this encounter Visit Diagnoses Not on filedocumented in this encounter Care Teams Gis Application Developer Relationship Specialty Start Date End Date Farshad Rodriguez MD [address] [place] [address] 3 [place] [address] PCP - General Family Medicine 08/26/24 documented as of this encounter
--- OUTSIDE RECORDS SUMMARY | 2025-01-18 12:25 | XMS_ITS | Clinical Summary ---
Author Organization [facility] Address [address] [place] [address] Care Team Providers Care Reject Opener And Filler Name Role Phone Sherri Herman NP Unavailable [phone] Farshad Rodriguez MD Primary Care Provider [phone] Allergies Active Allergy Reactions Criticality Noted Date Comments Adhesive Rash Medium 11/27/2024 Medications acetaZOLAMIDE ER (DIAMOX SEQUAL) 500 mg capsule Take 4 capsules (2,000 mg total) by mouth 2 (two) times a day Active topiramate (TOPAMAX) 50 mg tablet Take 1 tablet (50 mg total) by mouth daily Active famotidine (PEPCID) 20 mg tablet Take 1 tablet (20 mg total) by mouth 2 (two) times a day Active azelastine (ASTELIN) 137 mcg (0.1 %) nasal spray Administer 1 spray into each nostril 2 (two) times a day Use in each nostril as directed Active fluticasone propionate (FLONASE) 50 mcg/actuation nasal spray Administer 1 spray into each nostril daily Active ferrous sulfate 325 mg (65 mg of elemental iron) tabletIndicatio ns:Iron Deficiency Anemia Take 1 tablet (65 mg of elemental iron total) by mouth 3 (three) times a day with meals Active potassium citrate ER (UROCIT-K) 5 mEq (540 mg) ER tablet Take 1 tablet (5 mEq total) by mouth daily Active Active Problems Problem Noted Date Diagnosed Date 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 IIH (idiopathic intracranial hypertension) 11/30 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 Encounters Date Type Department Care Team Description 12/17/2024 2:45 PM CDT Office Visit [facility] Ophthalmology [address] [phone] Malick Rogers MD IIH (idiopathic intracranial hypertension) (Primary Dx); Papilledema; Chiari malformation type I (HCC) 12/17/2024 2:20 PM CDT Imaging Exam [facility] Ophthalmology [address] [place] [phone] Unspecified disorder of visual pathways 12/17/2024 2:10 PM CDT Imaging Exam [facility] Ophthalmology [address] [place] [phone] Unspecified disorder of visual pathways 12/16/2024 Orders Only [facility] Ophthalmology [address] [place] [phone] Malick Rogers MD Unspecified disorder of visual pathways (Primary Dx) 12/09/2024 Telephone [facility] Ophthalmology [address] [place] [address] Malick Rogers MD new symptoms 11/30/2024 9:17 AM CDT - 11/30/2024 11:59 PM CDT Hospital Encounter [facility] [address] [place] [address] Discharge Disposition: Discharge to home or self care 11/30/2024 9:16 AM CDT - 11/30/2024 11:59 PM CDT Hospital Encounter [facility]) [address] [place] [address] Discharge Disposition: Discharge to home or self care 11/30/2024 9:16 AM CDT - 11/30/2024 11:59 PM CDT Hospital Encounter [facility] [address] [place] [address] Discharge Disposition: Discharge to home or self care 11/27/2024 10:50 AM CDT Imaging Exam [facility] Ophthalmology [facility] [address] [place] [phone] 11/27/2024 10:45 AM CDT Imaging Exam [facility] Ophthalmology [address] [phone] 11/27/2024 9:30 AM CDT Office Visit [facility] Ophthalmology [address] [place] [phone] Malick Rogers MD IIH (idiopathic intracranial hypertension) (Primary Dx); Papilledema; Chiari malformation type I (HCC) 11/27/2024 Telephone [facility] Ophthalmology [address] [place] [phone] Malick Rogers MD from Last 3 Months Surgical History Surgery Date Site/Laterality Comments AL OCCLUSION FLP TUBE DEV VAG/SUPRAPUBIC APPR Oviductal Surgery Tubal Occlusion By Device - (Added by TW Conv) Family History Medical History Relation Name [...] 9:22 AM CDT Height 165.1 cm (5' 5) 02/15/2021 9:22 AM CDT Body Mass Index [...] Screening 2000 Regular Well Visit/Exam 18-64 2000 HPV Vaccines (1 - 3-dose SCDM series) 2009 Covid-19 Vaccine ( season) 2024 10/22/2020, 10/01/2020 Influenza Vaccine (#1) 2025 03/22/2014 Pneumococcal vaccine <65 Aged Out No longer eligible based on patient's age to complete this topic Procedures Procedure Name Priority Date/Time Associated Diagnosis Comments OCT, RETINA - OU - BOTH EYES Routine 12/17/2024 2:36 PM CDT Unspecified disorder of visual pathways OCT, OPTIC NERVE - OU - BOTH EYES Routine 12/17/2024 2:36 PM CDT Unspecified disorder of visual pathways SINGH VISUAL FIELD - OU - BOTH EYES Routine 12/17/2024 2:36 PM CDT Unspecified disorder of visual pathways NEURO MR OUTSIDE REFERENCE Routine 11/30/2024 9:17 AM CDT NEURO MR OUTSIDE REFERENCE Routine 11/30/2024 9:16 AM CDT NEURO MR OUTSIDE REFERENCE Routine 11/30/2024 9:16 AM CDT FUNDUS PHOTOS/FAF - OU - BOTH EYES Routine 11/27/2024 10:58 AM CDT IIH (idiopathic intracranial hypertension) OCT, OPTIC NERVE - OU - BOTH EYES Routine 11/27/2024 10:58 AM CDT IIH (idiopathic intracranial hypertension) OCT, RETINA - OU - BOTH EYES Routine 11/27/2024 10:58 AM CDT IIH (idiopathic intracranial hypertension) from Last 3 Months Results * OCT, Retina - OU - Both Eyes (12/17/2024 2:36 PM CDT) Central Macular Thickness OS 221 mircometers CONTINUUM Central Macular Thickness OD 226 micrometers CONTINUUM Anatomical Region Laterality Modality Head Other Narrative 12/17/2024 5:01 PM CDT Right Eye Quality was good. Scan locations included subfoveal. Macular thickness was 226 micrometers. Left Eye Quality was good. Scan locations included subfoveal. Macular thickness was 221 mircometers. Notes GCL: OD: 88, Normal OS: 78, Stable supero-temporal GCL thinning us Malick Rogers MD OPHTH TOMOGRAPHY [facility] Result * OCT, Optic Nerve - OU - Both Eyes (12/17/2024 2:36 PM CDT) RNFL OS 85 micrometers CONTINUUM RNFL OD 104 micrometers CONTINUUM Anatomical Region Laterality Modality Head Other Narrative 12/17/2024 5:01 PM CDT Right Eye Reliability was good. Temporal thickness was normal. Superior thickness was normal. Nasal thickness was normal. Inferior thickness was normal. Average RNFL thickness 104 micrometers. Left Eye Reliability was good. Temporal thickness was normal. Superior thickness was showing abnormal thinning. Nasal thickness was normal. Inferior thickness was normal. Average RNFL thickness 85 micrometers. Notes OD: Improved RNFL thickness OS: Improved RNFL thickness with superior thinning Malick Rogers MD OPH TOMOGRAPHY [facility] Result - Final * Singh Visual Field - OU - Both Eyes (12/17/2024 2:36 PM CDT) Pattern Deviation OS 2.14 dB CONTINUUM Pattern Deviation OD 2.20 dB CONTINUUM Mean Deviation OS -4.29 dB CONTINUUM Mean Deviation OD -2.27 dB CONTINUUM Anatomical Region Laterality Modality Head Other Narrative 12/17/2024 5:01 PM CDT Right Eye Fixation was good. Cooperation was good. Reliability was borderline. Mean Deviation was -2.27 dB. Pattern Deviation was 2.20 dB. Left Eye Fixation was good. Cooperation was good. Reliability was borderline. Mean Deviation was -4.29 dB. Pattern Deviation was 2.14 dB. Notes OD: Non-specific visual field defects with possible infero-nasal depression. Questionably reliable study OS: Non-specific visual field defects with possible inferior deficits. Questionably reliable study Malick Rogers MD OPH VISUAL FIELD F inal Result * Neuro MR Outside Reference (11/30/2024 9:17 AM CDT) Impressions [email or web address] - 11/30/2024 9:17 AM CDT These images are for Reference purposes only and have not been reviewed by [facility] Radiology. There will be no report generated by a [facility] Radiologist. Narrative RAD_PACS_[facility]J - 11/30/2024 9:17 AM CDT EXAMINATION: Images For Reference Purposes Only Malick Rogers MD IMG MRI PROCEDURES F inal Result Performing Organization Address [facility] de Phone Number [email or web address] * Neuro MR Outside Reference (11/30/2024 9:16 AM CDT) Impressions MIAN_[email or web address] - 11/30/2024 9:16 AM CDT These images are for Reference purposes only and have not been reviewed by [facility]iology. There will be no report generated by a [facility] Radiologist. Narrative RAD_[email or web address] - 11/30/2024 9:16 AM CDT EXAMINATION: Images For Reference Purposes Only Malick Rogers MD IMG MRI PROCEDURES F inal Result Performing Organization Address [facility] de Phone Number [email or web address] * Neuro MR Outside Reference (11/30/2024 9:16 AM CDT) Impressions KELLY_BJ - 11/30/2024 9:16 AM CDT These images are for Reference purposes only and have not been reviewed by [facility] Radiology. There will be no report generated by a [facility] Radiologist. Narrative MIAN_JO_BJ - 11/30/2024 9:16 AM CDT EXAMINATION: Images For Reference Purposes Only Malick Rogers MD IMG MRI PROCEDURES F inal Result Performing Organization Address [facility] de Phone Number [email or web address] * Fundus Photos/FAF - OU - Both Eyes (11/27/2024 10:58 AM CDT) Anatomical Region Laterality Modality Head Fundus Photograp hy Narrative 11/27/2024 3:05 PM CDT Right Eye Quality was good. Left Eye Quality was good. Notes Grade II papilledema OU, remainder of the fundus unremarkable OU. Normal background auto fluorescence OU. Fabiana Flores MD OPHTH PHOTOGRAPHY Final Result * OCT, Optic Nerve - OU - Both Eyes (11/27/2024 10:58 AM CDT) RNFL OS 113 micrometers CONTINUUM RNFL OD 111 micrometers CONTINUUM Anatomical Region Laterality Modality Head Other Narrative 11/27/2024 3:05 PM CDT Right Eye Reliability was good. Average RNFL thickness 111 micrometers. Left Eye Reliability was good. Average RNFL thickness 113 micrometers. Notes Increased RNFL thickness OU Fabiana Flores MD OPHTH TOMOGRAPHY Final Result * OCT, Retina - OU - Both Eyes (11/27/2024 10:58 AM CDT) Anatomical Region Laterality Modality Head Other Narrative 11/27/2024 3:05 PM CDT Right Eye Quality was good. Left Eye Quality was good. Notes Normal macular thickness OU. GCC mildly thinned temporally OS. GCC 88/78. Fabiana Flores MD OPHTH TOMOGRAPHY Edited Result - Final from Last 3 Months Insurance [facility] [employer] US [employer] HMO [facility] OPEN ACCESS [facility] CHOICE PLUS [facility] CHOICE PLUS Care Teams Reject Opener And Filler Relationship Specialty Start Date End Date Farshad Rodriguez MD [address] [place] [id number] PCP - General Emergency Medicine 09/14/24 Sherri Herman NP 10/04/17
--- OUTSIDE RECORDS SUMMARY | 2025-01-18 12:25 | XMS_ITS | Encounter Summary ---
Author Organization [facility] Address [facility] [place] [address] Care Team Providers Care Flooring Installer Name Role Phone Sherri Herman Primary Care Provider Encounter Details Date Type Department Care Team (Latest Contact Info) Description 12/23/2024 Results Follow-Up [facility] [place] [id number] [place] [address] Lucinda Reeves RN USE ECHOCARDIOGRAM Social History Tobacco Use Types Packs/Day Years [...] Description 03/01/2025 11:45 AM CDT Office Visit [facility] [address] [place] [address] Con Fontana MD [facility], [address] [place] [address] documented as of this encounter Visit Diagnoses Not on filedocumented in this encounter Care Teams Flooring Installer Relationship Specialty Start Date End Date Sherri Herman FNP PCP - General NURSE PRACTITIONER 01/03/22 documented as of this encounter
--- OUTSIDE RECORDS SUMMARY | 2025-01-18 12:25 | XMS_ITS | Encounter Summary ---
Author Organization [facility] Address [address] [place] [address] Care Team Providers Care Park Interpreter Name Role Phone Sherri Herman [facility] Primary Care Provider [phone] Encounter Details Date Type Department Care Team (Late st Contact Info) Description 01/19/2022 [facility] [address] [place] [address] Beth Zuniga MA Social History Tobacco Use [...] Description 03/01/2025 11:45 AM CDT Office Visit [facility] [address] [place] [address] Con Fontana MD [facility] [address] [place] [address] documented as of this encounter Procedures Procedure [...] (05/31/2022) HGB A1C 5.6 % 05/31/2022 Default History Genericprovider LABORATORY Final Result * (ABNORMAL) COMPREHENSIVE [...] * THYROID STIM HORMONE, TSH (01/21/2021) Pathologist [facility] TSH 1.31 01/21/2021 us Doc [facility] Abstract LABORATORY Final Result * CBC (OUTSIDE LAB) (01/21/2021) Pathologist [facility] WBC 8.6 HGB 11.0 HCT 35.2 PLT 268 01/21/2021 us Doc [facility] Abstract LAB-OUTSIDE/ABSTRACTED Final Result * (ABNORMAL) COMPREHENSIVE METABOLIC PANEL (01/21/2021) Pathologist [facility] SODIUM S/P/B 140 POTASSIUM S/P/B 3.8 CO2 [...] Result * FOLATE (OUTSIDE LAB) (07/02/2020) Pathologist [facility] FOLATE 10.4 07/02/2020 us Doc [facility] Abstract LAB-OUTSIDE/ABSTRACTED Final Result * VITAMIN B-12 (07/02/2020) Pathologist [facility] VITAMIN B12 S/P/B 914 07/02/2020 us Doc [...] on filedocumented in this encounter Care Teams Park Interpreter Relationship Specialty Start Date End Date Sherri Herman FNP PCP - General NURSE PRACTITIONER 01/03/22 documented as of this encounter
[2025-01-18 12:44] VITALS: BP 147/94; PULSE 98; RESP 16; TEMP 36.9; O2SAT 100
--- NOTE | 2025-01-18 14:27 | ED.GENADULT ---
HPI - General Adult General Chief complaint: Fall Stated complaint: fall Time Seen by Provider: 01/18/25 14:03 History of Present Illness HPI narrative: 44-year-old female presents to the emergency department for evaluation after having a fall. Patient had a fall into an open grave and did injure her left shoulder, left chest, left lateral abdomen, left elbow and right hip. Patient denies striking head denies loss of consciousness. Related Data Allergies Allergy/AdvReac Type Severity Reaction Status Date / Time No Known Allergies Allergy Verified 10/12/24 13:13 Review of Systems Review of Systems: All systems reviewed & are unremarkable except as noted in HPI and below PMFSH Past Medical History Medical History Chiari malformation UTI (urinary tract infection) Sinusitis Surgical History Surgical History H/O tubal ligation Social History Social History Smoking status: Never smoker Alcohol intake: never Living arrangements: with family Gender identity (if verbalized by the patient): Female Exam Narrative: APPEARANCE: Well appearing, no pain, no distress, well-nourished. HEAD: normocephalic, atraumatic. EYES: PERRLA/EOMI, conjunctivae clear. NOSE: Normal no drainage EARS:TMS clear with good light reflex. THROAT: Pharynx clear, no exudate. NECK: Supple. No adenopathy, no masses. RESPIRATORY: Airway patent, respirations nonlabored. Clear to auscultation bilaterally, no rales, rhonchi, wheezing. CARDIOVASCULAR: Regular rate and rhythm without murmurs rubs or gallops. ABDOMINAL: Left-sided lower abdominal pain MUSCULOSKELETAL: Left elbow tenderness, left elbow abrasions, left shoulder tenderness, left-sided chest pain, left upper quadrant abdominal pain, right hip tenderness to palpation NEURO: Alert. Cranial nerves II through XII intact. Good gait. Good coordination SKIN: Warm, dry. Normal Color Course Vital Signs Vital signs: Vital Signs Temperature 98.4 F 01/18/25 12:44 Pulse Rate 98 01/18/25 12:44 Respiratory Rate 16 01/18/25 12:44 Blood Pressure 147/94 H 01/18/25 12:44 Pulse Oximetry 100 01/18/25 12:44 Oxygen Delivery Room Air 01/18/25 12:44 Temperature 98.4 F 01/18/25 12:44 Pulse Rate 82 01/18/25 16:01 Respiratory Rate 20 01/18/25 16:01 Blood Pressure 119/71 01/18/25 16:01 Pulse Oximetry 100 01/18/25 16:01 Oxygen Delivery Room Air 01/18/25 12:44 Medical Decision Making MDM Narrative Medical decision making narrative: 44-year-old female presents emergency department for evaluation after having a fall into an open grave. Patient was complaining of left elbow pain and right hip pain along with left chest wall and left-sided abdominal pain. Patient is currently afebrile with no leukocytosis and a hemoglobin of 11.3. Patient has no acute abnormalities on her CMP. Urine was negative for . CT of the chest did show a 1.4 cm pulmonary nodule with no evidence of pneumonia new orthotics or rib fracture. CT scan shows a 9 mm low-density lesion in the right lobe of the liver which is new with no evidence of liver laceration. There was a 5 mm nonobstructing calcification in the left kidney. Small amount of nonspecific fluid in the pelvis. Patient was updated on the incidental findings of the CT scan all questions concerns were addressed. Patient was advised to take Tylenol for pain control, patient states she cannot take NSAIDs. Patient was provided cyclobenzaprine. Patient was educated on reasons to return to the emergency department. Differential Diagnosis Differential Diagnosis: Pneumothorax, chest fracture, pulmonary contusion, splenic laceration, abdominal injury, hip fracture, elbow fracture Vital Signs Vital Signs: Vital Signs Temperature 98.4 F 01/18/25 12:44 Pulse Rate 98 01/18/25 12:44 Respiratory Rate 16 01/18/25 12:44 Blood Pressure 147/94 H 01/18/25 12:44 Pulse Oximetry 100 01/18/25 12:44 Oxygen Delivery Room Air 01/18/25 12:44 Temperature 98.4 F 01/18/25 12:44 Pulse Rate 82 01/18/25 16:01 Respiratory Rate 20 01/18/25 16:01 Blood Pressure 119/71 01/18/25 16:01 Pulse Oximetry 100 01/18/25 16:01 Oxygen Delivery Room Air 01/18/25 12:44 Lab Data Lab results reviewed: Yes I reviewed the patient's lab results. 01/18/25 15:27 01/18/25 16:23 Labs: Lab Results 01/18/25 01/18/25 01/18/25 Range/Units 15:27 16:00 16:23 WBC 9.0 (4.5-10.0) K/mm3 RBC 4.24 (4.2-5.4) M/mm3 Hgb 11.3 L (12.0-15.0) g/dL Hct 35.3 L (37.0-47.0) % MCV 83.3 (80-100) fl MCH 26.7 (26-34) pg MCHC 32.0 (32-36) g/dl RDW 15.2 H (11.5-14.5) % Plt Count 235 (150-375) k/mm3 MPV 10.9 H (7.4-10.4) fl Immature Gran % (Auto) 0.2 (0-0.5) % Neut % (Auto) 61.6 (45.5-73.1) % Lymph % (Auto) 27.6 (18.3-44.2) % [place] % (Auto) 8.9 H (2.6-8.5) % Eos % (Auto) 1.1 (0-4.4) % Baso % (Auto) 0.6 (0.2-1.2) % Lymph # (Auto) 2.47 (0.9-3.2) K/mm3 [place] # (Auto) 0.8 H (0.1-0.6) K/mm3 Eos # (Auto) 0.1 (0-0.3) K/mm3 Baso # (Auto) 0.1 (0.0-0.1) K/mm3 Abs Immat Gran (auto) 0.02 (0.00-0.031) K/mm3 Absolute Neuts (auto) 5.5 (1.3-6.7) K/mm3 Absolute Nucleated RBC 0.000 (0.0-0.012) K/mm3 Nucleated RBC % 0.0 (0.0-0.2) % Sodium 139 (137-145) mmol/L Potassium 3.4 (3.4-5.0) mmol/L Chloride 112 H (98-107) mmol/L Carbon Dioxide 17 L (22-30) mmol/L Anion Gap 10 (4-12) mmol/L BUN 4 L (7-17) mg/dL Creatinine 0.55 L (0.7-1.0) mg/dL Estim Creat Clear Calc 130 ml/min Estimated GFR > 60 (59 - ) Glucose 81 (65-110) mg/dL Calcium 9.0 (8.4-10.2) mg/dL Total Bilirubin 0.3 (0.2-1.3) mg/dL AST 24 (14-36) U/L ALT 17 (6-35) U/L Alkaline Phosphatase 63 (38-126) U/L Total Protein 7.6 (6.3-8.2) g/dL Albumin 4.1 (3.5-5.1) g/dL POC Urine HCG, Qual Negative (Negative) Imaging Data Radiologist's impression: Impressions Elbow X-Ray 01/18/25 14:52 IMPRESSION: 1. No acute bony abnormality identified. If symptoms persist or worsen, consider a short-term follow-up study or additional imaging for further assessment Chest/Abdomen/Pelvis CT 01/18/25 17:25 IMPRESSION: 1. There is a 1.4 cm pulmonary nodule in the lingula. The finding measured 8 mm on 08/30/2022. A PET/CT and/or biopsy is recommended. 2. There is a 9 mm low-density lesion in the right lobe of the liver which was not seen in the study from 2022. There is a 2.3 x 1.8 cm low-density region in the medial segment of the left lobe of the liver about the falciform ligament. Differential includes focal fatty infiltration versus liver lesion. A liver mass MRI is recommended. 3. There is a 5 mm nonobstructing calcification in the left kidney. 4. Small amount of nonspecific fluid in the pelvis. Discharge Plan Discharge Clinical Impression: Arthralgia of elbow, left, Acute pain of right hip, Left-sided chest wall pain Patient Disposition: Home Condition: Stable Instructions: Antibiotic Form Additional Instructions: Tylenol and ibuprofen for pain control. Flexeril for muscle spasm. If you have any worsening symptoms then please call or return to the emergency department. Have close follow-up with your primary care physician Your CT scan did show some incidental findings that will need follow-up with your primary care physician, follow-up CT is recommended. Your CT scan did show a pulmonary nodule in the left lung, follow-up MRI is recommended. Patient Language: Montenegrin Prescriptions: New cyclobenzaprine 10 mg tablet 10 mg PO BID PRN (Reason: muscle spasm) Qty: 14 0RF No Action sulfamethoxazole-trimethoprim 800-160 mg tablet 1 tablet PO Q12H 10 Days Qty: 20 0RF mupirocin 2 % ointment 1 applic topical BID Qty: 15 0RF famotidine 20 mg tablet 20 mg PO DAILY Qty: 30 0RF alum-mag hydroxide-simeth [Maalox Advanced] 200-200-20 mg/5 mL suspension 10 ml PO QID PRN (Reason: dyspepsia) Qty: 200 0RF Rx Instructions: administer between meals and at bedtime ondansetron 4 mg tablet,disintegrating 4 mg PO Q8H PRN (Reason: nausea and vomiting) Qty: 10 0RF Follow-up/Referrals: Farshad Rodriguez MD [Primary Care Provider] -
--- OUTSIDE RECORDS SUMMARY | 2025-01-18 15:27 | XMS_ITS | Encounter Summary ---
Author Organization [facility] Address [address] [place] [address] Care Team Providers Care Supervisor Livestock Yard Name Role Phone Sherri Herman [facility] Primary Care Provider [phone] Encounter Details Date Type Department Care Team (Late st Contact Info) Description 01/19/2022 [facility] [address] [place] [address] Beth Zuniga MA Social History [...] Description 03/01/2025 11:45 AM CDT Office Visit [facility] [address] [place] [address] Con Fontana MD [facility] [address] [place] [address] documented as of this encounter [...] * THYROID STIM HORMONE, TSH (01/21/2021) Pathologist [facility] TSH 1.31 01/21/2021 us Doc [facility] Abstract LABORATORY Final Result * CBC (OUTSIDE LAB) (01/21/2021) Pathologist [facility] WBC 8.6 HGB 11.0 HCT 35.2 PLT 268 01/21/2021 us Doc [facility] Abstract LAB-OUTSIDE/ABSTRACTED Final Result * (ABNORMAL) COMPREHENSIVE METABOLIC PANEL (01/21/2021) Pathologist [facility] SODIUM S/P/B 140 POTASSIUM S/P/B 3.8 [...] Result * FOLATE (OUTSIDE LAB) (07/02/2020) Pathologist [facility] FOLATE 10.4 07/02/2020 us Doc [facility] Abstract LAB-OUTSIDE/ABSTRACTED Final Result * VITAMIN B-12 (07/02/2020) Pathologist [facility] VITAMIN B12 S/P/B 914 07/02/2020 us [...] on filedocumented in this encounter Care Teams Supervisor Livestock Yard Relationship Specialty Start Date End Date Sherri Herman FNP PCP - General NURSE PRACTITIONER 01/03/22 documented as of this encounter
--- OUTSIDE RECORDS SUMMARY | 2025-01-18 15:27 | XMS_ITS | Encounter Summary ---
Author Organization [facility] Address [facility] [place] [address] Care Team Providers Care Warehouse Packer Name Role Phone Sherri Herman [facility] Primary Care Provider Encounter Details Date Type Department Care Team (Late st Contact Info) Description 12/23/2024 MyChart Message Enc [facility] [address] [place] [address] Johana Magana, ANP- Three [facility]. [address] [place], [place] [id number] Test Results Social History Tobacco Use Types [...] Description 03/01/2025 11:45 AM CDT Office Visit [facility] [address] [place] [address] Con Fontana MD Three [facility] [address] [place], [place] [phone] documented as of this encounter Visit Diagnoses Not on filedocumented in this encounter Care Teams Warehouse Packer Relationship Specialty Start Date End Date Sherri Herman FNP PCP - General NURSE PRACTITIONER 01/03/22 documented as of this encounter
--- OUTSIDE RECORDS SUMMARY | 2025-01-18 15:27 | XMS_ITS | Encounter Summary ---
Author Organization [facility] Health Address [address] [facility] [place] [address] Care Team Providers Care Public Health Director Name Role Phone Farshad Rodriguez MD Primary Care Provider [phone] Encounter Details Date Type Department Care Team (Late st Contact Info) Description 01/14/2025 Office Visit External [facility] [address] [place] [address] [place] [address] [address] Social History Tobacco Use Types [...] Recorded Patient Health Questionnaire-2 Score 0 09/17/2024 [facility] of Occupat ional Health - Occupational Stress [...] any time in the past 12 m [facility], were you homeless or living in a long-term (including now)? No 08/27/2024 Comments No Sex [...] Video Visit [facility] - Neurology [address] [place] [address], [place] [address] Ora Webb APRN-STEM ROLLER [address] [place] [phone] 01/27/2025 4:30 PM CDT Video Visit [facility] [address] [place] [address] 02/11/2025 3:45 PM CDT Clinical Support [facility] [address] [place] [address] 02/15/2025 2:40 PM CDT Office Visit [facility] [address] [place] [address], [address] [address] [place] [address] Yani Lockhart [address] [address] 02/24/2025 8:15 PM CDT Appointment [facility] Sleep Services - Sleep Lab Critical access hospital0 [address] [phone] [place] [address] Yani Lockhart [facility] [address] [place] [address] 03/17/2025 2:15 PM CDT Office Visit [facility] [address] [place] [address] Adina Bowen, RELATIONSHIP SPECIALIST-STEM ROLLER [address] [place] [address] 03/18/2025 8:00 AM CDT Office Visit [facility] - ENT [address] [place] [address], [place] [phone] Emiliano Boyce MD [facility] DOOR 3 [place] [address] 04/09/2025 11:30 AM CDT Office Visit [facility] - Nephrology [address] [place] [address], [facility] [place] [phone] Ania Lucia MD [address] [place] [address] 2L [place] [address] documented as of this encounter Visit Diagnoses Not on filedocumented in this encounter Care Teams Public Health Director Relationship Specialty Start Date End Date Farshad Rodriguez MD [address] [place] [address] 3 [place] [address] PCP - General Family Medicine 08/26/24 documented as of this encounter
--- OUTSIDE RECORDS SUMMARY | 2025-01-18 15:27 | XMS_ITS | Clinical Summary ---
Author Organization [facility] Address [address] [facility] [place] [address] Care Team Providers Care Bioinformatics Support Specialist Name Role Phone Farshad Rodriguez MD Primary Care Provider [phone] Source Comments [facility],non-owned Affiliates and Associated Physician Practices is amultiple site organization consisting of ambulatory clinics and hospital sitesin [place], [place], [place] and [place]. This disclosure is being madepursuant to the Care Everywhere program and may not contain all information available regarding this patient. Last updated 18.[facility] Allergies Active Allergy Reactions Criticality Noted Date [...] Active azelastine (Astelin) 0.1 % nasal spray [place] 1 (one) spray to 2 (two) sprays into each nostril 2 times daily 90 mL 5 11/06/19 25 Active fluticasone propionate (Flonase) 50 MCG/ACT nasal spray [place] 2 (two) sprays into each nostril once [...] Clean-Up) vitamin D, ergocalciferol, (Drisdol) 1.25 MG (58715 UT) capsule TAKE 1 CAPSULE BY MOUTH [...] Travel 01/14/2025 12:00 PM CDT Office Visit [facility] Health Weight Management Services [address] [place] [address], [address] [place] [address] Kathy Cortes MD Class 3 severe obesity with body mass index (BMI) of 40.0 to 44.9 in adult, unspecified obesity type, unspecified whether serious comorbidity present (HCC) (Primary Dx); Dyslipidemia; Vitamin D deficiency; Snoring; Pre-diabetes 01/14/2025 Office Visit External [facility] Health Weight Management Services [address] [place] [address], [address] [place] [address] Kathy Cortes MD 01/14/2025 Office Visit External [facility] [address] [facility] [place] [address] [place] [address] Kathy Cortes MD 12/30/2024 Travel 12/21/2024 3:15 PM CDT Office Visit [facility] - ENT [address] [place] [phone] Emiliano Boyce MD Tinnitus aurium, bilateral (Primary Dx) 12/21/2024 Travel 11/13/2024 2:00 PM CDT Office Visit [facility] - Nephrology [address] [place] [phone] Claude Ross MD Kidney stones (Primary Dx); Renal stone; Vitamin D deficiency 11/13/2024 Travel 11/10/2024 2:20 PM CDT Clinical Support [facility] - Ophthalmology [address] [place] [phone] Claude Ross MD II (idiopathic intracranial hypertension) (Primary Dx) 11/10/2024 2:15 PM CDT Clinical Support [facility] - Ophthalmology [address] [place] [phone] Claude Ross MD II (idiopathic intracranial hypertension) (Primary Dx) 11/10/2024 2:10 PM CDT Clinical Support [facility] - Ophthalmology [address] [place] [phone] Claude Ross MD II (idiopathic intracranial hypertension) (Primary Dx) 11/10/2024 2:00 PM CDT Office Visit [facility] - Ophthalmology [address] [place] [phone] Claude Ross MD II (idiopathic intracranial hypertension) (Primary Dx) 11/05/2024 10:15 AM CDT Office Visit [facility] - ENT [address] [place] [phone] Emiliano Boyce MD Tinnitus aurium, bilateral (Primary Dx) 11/05/2024 9:30 AM CDT Testing Visit [facility] ENT [address] [facility], [place] [address] [place] KerenAmari Sensorineural hearing loss (SNHL) of left ear with unrestricted hearing of right ear ; Tinnitus of both ears; Dizziness; Otalgia of both ears 10/20/2024 Travel from Last 3 Months Immunizations Immunization Administration Dates Next Due Covid VirtualQube primary monoval ent 12+ yr 0.3mL Purple [...] Recorded Patient Health Questionnaire-2 Score 0 09/17/2024 [facility] [place] of Occupat ional Health - Occupational Stress [...] in the past 12 m [facility], were you homeless or living in a care home (including now)? No 08/27/2024 Comments No [...] Video Visit [facility] - [facility] [place] [phone] Ora Webb DISTRIBUTOR CLEANER-AUTOMOBILE PARKER [address] [place] [address] 01/27/2025 4:30 PM CDT Video Visit [facility] [address] [place] [address], [facility] 210 [place] [address] 02/11/2025 3:45 PM CDT Clinical Support [facility] [address] [place] [address], [facility] [address] [place] [address] 02/15/2025 2:40 PM CDT Office Visit [facility] [address] [place] [address], [facility] [address] [place] [address] [place] [address] Yani Lockhart [address] [address] 02/24/2025 8:15 PM CDT Appointment [facility] Sleep Services - Sleep Lab [address] [place] [phone] [place] [address] [address]ani [address] [address] 03/17/2025 2:15 PM CDT Office Visit [facility] [address] [place] [address], [address] [address] Adina Bowen, DISTRIBUTOR CLEANER-AUTOMOBILE PARKER [address] [address]ANI [address]OCK[address] [phone] 03/18/2025 8:00 AM CDT Office Visit [facility] [address] [facility] [place] [phone] Emiliano Boyce MD [address] [facility] DOOR 3 [place] [address] 04/09/2025 11:30 AM CDT Office Visit [facility] - Nephrology [facility], [place] [address] Ania Lucia MD [address] [place] [address] [place] [address] Health Maintenance Due Date Last Done Comments [...] - 12/19/2024 6:09 AM CDT Performed at: [address] [place] [id number] Reaming Machine Operator For Plastic: Saroj Raya PhD, Phone: [phone] us Claude Ross MD LAB - URINE CHEMISTRY ORDERAB LES Final Result [facility] INSURANCE BILL [address] [place] [address] * EYE EXAM (11/27/2024) Anatomical Region Laterality [...] OS), (-2.7 OD, -3.73 OS). Result [facility] us Claude Ross MD OPHTHALMOLOGY SCHED [...] LT pending interest/medical clearance. Amari Almodovar. [facility]-A Clinical Health Education Specialist [facility]-Department of Otolaryngology/Audiology Center for [facility] Medicine[facility] [address] [place] [address] Keren Fitzpatrick AUDIOLOGY SERVICES ORDERABLES F inal Result * (ABNORMAL) COMPREHENSIVE METABOLIC PANEL (10/16/2024 6:[address] [facility]) BUN 10 7 - 26 mg/dL 10/16/2024 6:39 PM [facility] Creatinine 0.58 0.56 - 0.96 mg/dL 10/16/2024 6:39 PM [facility] Sodium 139 136 - 145 mmol/L 10/16/2024 6:39 PM [facility] Potassium 3.2(L) 3.5 - 4.5 mmol/L 10/16/2024 6:39 PM [facility] Chloride 113(H) 98 - 107 mmol/L 10/16/2024 6:39 PM [facility] CO2 16(L) 22 - 29 mmol/L 10/16/2024 6:39 PM [facility] Glucose 89 70 - 99 mg/dL 10/16/2024 6:39 PM [facility] Calcium 9.1 8.4 - 10.2 mg/dL 10/16/2024 6:39 PM [facility] Protein Total 7.9 6.0 - 8.3 g/dL 10/16/2024 6:39 PM [facility] Albumin 4.2 3.4 - 5.0 g/dL 10/16/2024 6:39 PM [facility] Bilirubin Total 0.2 0.2 - 1.2 mg/dL 10/16/2024 6:39 PM [facility] Alkaline Phosphatase 72 40 - 150 U/L 10/16/2024 6:39 PM [facility] ALT 13 5 - 55 U/L 10/16/2024 6:39 PM [facility] AST 15 5 - 34 U/L 10/16/2024 6:39 PM [facility] Anion Gap 10 6 - 16 10/16/2024 6:39 PM [facility] BUN/Creatinine Ratio 17 7 - 23 10/16/2024 6:39 PM [facility] Osmolality Calculated 287 275 - 295 mOsm/kg 10/16/2024 6:39 PM [facility] Albumin/Globulin Ratio 1.1 1.1 - 2.3 10/16/2024 6:39 PM [facility] eGFR by CKD-EPI >90 >=90 mL/min/1.7 3 m2 10/16/2024 6:39 PM [facility] Blood BLOOD SPECIMEN / Unknown Venipuncture / Unknown 10/16/2024 6:09 PM T 10/16/2024 6:[address] [facility] us Jaspreet Cam MD LAB - CHEMISTRY ORDERABLES F inal Result Performing Organization Address [facility] [place] [facility]/State/ZIP Co de Phone Number [facility] [address] [place] [address], [facility] [phone] from Last 3 Months or Most Recently Relevant to Health Maintenance Insurance [facility] Advance Directives * Full Code (Latest Code Status on File) Date Activated Date Inactivated Comments 08/26/2024 3:26 AM 08/28/2024 7:32 PM Care Teams Bioinformatics Support Specialist Relationship Specialty Start Date End Date Farshad Rodriguez MD [address] [place] [address] PCP - General Family Medicine 08/26/24
--- OUTSIDE RECORDS SUMMARY | 2025-01-18 15:27 | XMS_ITS | Encounter Summary ---
Author Organization [facility] Health Address [address] [facility] [place] [address] Care Team Providers Care Log Turner Name Role Phone Farshad Rodriguez MD Primary Care Provider [phone] Encounter Details Date Type Department Care Team (Late st Contact Info) Description 08/26/2024 Ophth Exam [facility] - Ophthalmology [address] [place] [address] Hien Zaragoza MD [address] [place], [place] [phone] Social History Tobacco Use Types Packs/Day Years [...] and heating? Not hard at all 08/27/2024 [facility] [place] of Occupat ional Health - Occupational Stress [...] any time in the past 12 m [facility], were you homeless or living in a prison (including now)? No 08/27/2024 Comments No Sex [...] Video Visit [facility] - Neurology [address] [place] [address], [facility] [place] [address] Ora Webb APRN-COMMERCIAL DRONE PILOT [address] [place] [address] [place] [address] 01/27/2025 4:30 PM CDT Video Visit [facility] Health Weight Management Services [address] [place] [address], [facility] 210 [place] [address] 02/11/2025 3:45 PM CDT Clinical Support [facility] Weight Management Services [address] [place] [address], [facility] 210 [place] [address] 02/15/2025 2:40 PM CDT Office Visit [facility] Weight [facility] Services [address] [place] [address], [address] [address] [place] [address] Yani Lock[address] [address] 02/24/2025 8:15 PM CDT Appointment [facility] Sleep Services - Sleep Lab [address] [place] [phone] [place] [address] Yani Lock[address] [address] 03/17/2025 2:15 PM CDT Office Visit [facility] Services [address] [place] [address], [address] [address] Adina Bowen POWER PLANT INSPECTOR-COMMERCIAL DRONE PILOT [address] YANI LOCKHART [facility] 210 [place] [phone] 03/18/2025 8:00 AM CDT Office Visit [facility] - ENT [address] [place] [address], [place] [address] Emiliano Boyce MD [address] [place] [address] [address] [place] [address] 04/09/2025 11:30 AM CDT Office Visit [facility] - Nephrology [facility]5 [facility], [place] [address] Ania Lucia MD [address] [place] [address] [place] [address] documented as of this encounter Visit Diagnoses Not on filedocumented in this encounter Care Teams Log Turner Relationship Specialty Start Date End Date Farshad Rodriguez MD [address] [facility] [address] [place] [address] PCP - General Family Medicine 08/26/24 documented as of this encounter
--- OUTSIDE RECORDS SUMMARY | 2025-01-18 15:27 | XMS_ITS | Encounter Summary ---
Author Organization [facility] Address [facility] [place] [address] Care Team Providers Care Wood Polisher Name Role Phone Sherri Herman Primary Care Provider Encounter Details Date Type Department Care Team (Latest Contact Info) Description 12/23/2024 Results Follow-Up [facility] [place] [address] [place] [address] Lucinda Reeves RN USE ECHOCARDIOGRAM Social [...] Description 03/01/2025 11:45 AM CDT Office Visit [facility] [address] [place] [address] Con Fontana MD [facility], [address] [place] [address] documented as of this encounter Visit Diagnoses Not on filedocumented in this encounter Care Teams Wood Polisher Relationship Specialty Start Date End Date Sherri Herman FNP PCP - General NURSE PRACTITIONER 01/03/22 documented as of this encounter
--- OUTSIDE RECORDS SUMMARY | 2025-01-18 15:27 | XMS_ITS | Encounter Summary ---
Author Organization [facility] Health Address [address] [facility] [place] [address] Care Team Providers Care Marketing Team Lead Name Role Phone Farshad Rodriguez MD Primary Care Provider [phone] Encounter Details Date Type Department Care Team (Late st Contact Info) Description 08/27/2024 Ophth Exam [facility] - Ophthalmology [address] [place] [phone] Claude Ross MD [address] [place] [address] DEPT [place] [address] Social History Tobacco Use Types [...] and heating? Not hard at all 08/27/2024 [facility] of Occupat ional Health - Occupational Stress [...] time in the past 12 m [facility], were you homeless or living in [...] Description 01/21/2025 3:30 PM CDT Video Visit [facility] - Neurology [address] [place] [phone] Ora Webb APRN-[address] [place] [address] 01/27/2025 4:30 PM CDT Video Visit [facility] Weight Management Services [address] [place] [phone] 02/11/2025 3:45 PM CDT Clinical Support [facility] Weight Management Services [address] [place] [address] 02/15/2025 2:40 PM CDT Office Visit [facility] Weight Management Services [address] [place] [phone] Kathy Cortes MD [address] [place] [address] 02/24/2025 8:15 PM CDT Appointment [facility] Sleep Services - Sleep Lab [address] [facility] [place] [address] [place] [phone] [place] [address] [facility] [address] [place], [place] [phone] 03/17/2025 2:15 PM CDT Office Visit [facility] Weight Management Services [address] [facility], [address] [place] [address] Adina Bowen, SPONGE FISHERMAN-REAL ESTATE REP [address] [facility] [address] [place] [address] 03/18/2025 8:00 AM CDT Office Visit [facility] - ENT [address] [place] [address], [place] [phone] Emiliano Boyce MD [address] [place] [address] [address] [place] [address] 04/09/2025 11:30 AM CDT Office Visit [facility] - Nephrology [address] [place] [address], [facility] [place] [phone] Ania Lucia MD [address] [place] [address] [place] [address] documented as of this encounter Visit Diagnoses Not on filedocumented in this encounter Care Teams Marketing Team Lead Relationship Specialty Start Date End Date Farshad Rodriguez MD [address] [facility] [address] [place] [address] PCP - General Family Medicine 08/26/24 documented as of this encounter
--- OUTSIDE RECORDS SUMMARY | 2025-01-18 15:27 | XMS_ITS | Encounter Summary ---
Author Organization [facility] Health Address [address] [facility] [place] [address] Care Team Providers Care Health Care Administrator Name Role Phone Farshad Rodriguez MD Primary Care Provider [phone] Encounter Details Date Type Department Care Team (Late st Contact Info) Description 01/14/2025 Office Visit External [facility] Weight Management Services [address] [place] [address] [place] [address] [address] Social History Tobacco Use Types [...] Recorded Patient Health Questionnaire-2 Score 0 09/17/2024 [facility] [place] of Occupat ional Health - Occupational [...] any time in the past 12 m [facility], were you homeless or living in a senior living (including now)? No 08/27/2024 Comments No Sex [...] Video Visit [facility] - Neurology [address] [place] [address], [place] [address] Ora Webb APRN-COUNSELOR EDUCATION PROFESSOR [address] [place] [phone] 01/27/2025 4:30 PM CDT Video Visit [facility] Weight Management Services [address] [place] [address] 02/11/2025 3:45 PM CDT Clinical Support [facility] Weight Management Services [address] [place] [address] 02/15/2025 2:40 PM CDT Office Visit [facility] Weight Management Services [address] [place] [address], [address] [address] [place] [address] Yani Lock[address] [address] 02/24/2025 8:15 PM CDT Appointment [facility] Sleep Services - Sleep Lab [facility] [address] [phone] [place] [address] Yani Lockhart [facility] 210 [place] [address] 03/17/2025 2:15 PM CDT Office Visit [facility] Weight Management Services [address] [place] [address] Adina Bowen, CRANE LADLE PERSON-COUNSELOR EDUCATION PROFESSOR [address] [place] [address] 03/18/2025 8:00 AM CDT Office Visit [facility] - ENT [address] [place] [address], [place] [phone] Emiliano Boyce MD [facility] [address] 3 [place] [address] 04/09/2025 11:30 AM CDT Office Visit [facility] - Nephrology [address] [place] [address], [facility] [place] [phone] Ania Lucia MD [address] [place] [address] 2[address] [place] [address] documented as of this encounter Visit Diagnoses Not on filedocumented in this encounter Care Teams Health Care Administrator Relationship Specialty Start Date End Date Farshad Rodriguez MD [address] [place] [address] 3 [place] [address] PCP - General Family Medicine 08/26/24 documented as of this encounter
--- OUTSIDE RECORDS SUMMARY | 2025-01-18 15:27 | XMS_ITS | Clinical Summary ---
Author Organization [facility] Address [address] [place] [address] Care Team Providers Care College Physics Instructor Name Role Phone Sherri Herman Primary Care Provider [phone] Allergies Active Allergy Reactions Criticality Noted Date [...] (morbid obesity) 05/02/2022 Chronic diastolic heart failure ([facility] ) 05/02/2022 Dyslipidemia 05/02/2022 Chiari malformation type I ([facility]) Encounters Date Type Department Care Team Description 12/23/2024 MyChart Message Enc [facility] [address] [place] [phone] Johana Magana ANP-BC Test Results 12/23/2024 Results Follow-Up [place] [address] [phone] Lucinda Reeves RN USE ECHOCARDIOGRAM 12/22/2024 3:45 PM CDT - 12/22/2024 11:59 PM CDT Hospital Encounter [facility] Non Invasive Cardiology ONE [facility] [place] [address] Con Fontana MD Discharge Disposition: Home or Self Care (Routine Discharge) 12/22/2024 Travel 11/30/2024 12:30 PM CDT Office Visit [place] [address] [phone] Con Fontana MD Lipids (Office visit) 11/30/2024 Telephone [facility] [place] [phone] [phone] Esteban Blanc RMA Schedule Test (Echo) 11/30/2024 Travel from Last 3 Months Immunizations Immunization Administration Dates Next Due Dtp (Generic) 02/01/1988, 7,03/30/1983,1982,1982 Influenza (Generic) 03/22/2014 MMR (MMRII) 12/09/1992,04/29/1984 PFIZER COVID-19 (ORIGINAL FORMULATION, PURPLE CAP) mRNA, LNP-S, PF, 30 MCG/0.3 ML DOSE 10/22/2020,10/01/2020 Polio Opv (Generic) 02/01/1988, 7,03/30/1983,1982,1982 Family History Medical History Relation Comments MD Father Aneurysm Maternal Grandfather Stroke Maternal Grandmother [...] Description 03/01/2025 11:45 AM CDT Office Visit [facility] [facility] [phone] [place] [address] Con Fontana MD [facility] [address] [place] [address] Health Maintenance Due Date Last Done Comments [...] CDT Echocardiography Report Pat.Name: SYLVESTER OGDEN Pat.ID: [id number] St.Date: 12/22/2024 Exam Time: 3:51:00 PM Study Type:ECHO WITH CARDIAC DOPPLER COMP Height: 68 in Weight: 196 lb BSA: 2.03 m2 Age: 10 1980,44Y Sex: F BP: 107/71 Sonogrphr: Deborah Joe Pat. Stat.:Outpatient CPT - 4: 68093 Reason for Study:Dyspnea on exertion Procedures: 2D, [...] cm Aortic Root Amilcar 2.48 cm LVOT/AoV (EXTRUSION TECHNICIAN) ( 0.46 Left atrial amilcar 3.82 cm [...] 12/23/2024 Echocardiography Report Pat.Name: SYLVESTER OGDEN Pat.ID: [id number] .Date: 12/22/2024 Exam Time: 3:51:00 PM Study Type:ECHO WITH CARDIAC DOPPLER COMP Height: 68 in Weight: 196 lb BSA: 2.03 m2 Age: 10 1980,44Y Sex: F BP: 107/71 Sonogrphr: Deborah Joe Pat. Stat.:Outpatient CPT - 4: 53501 Reason for Study:Dyspnea on exertion Procedures: 2D, [...] cm Aortic Root Amilcar 2.48 cm LVOT/AoV (EXTRUSION TECHNICIAN) ( 0.46 Left atrial amilcar 3.82 cm [...] 12/23/2024 07:29 AM Ana Dumont M.D. us Con Fontana MD ECHO Final Res ult from Last 3 Months Insurance Care Teams College Physics Instructor Relationship Specialty Start Date End Date Sherri Herman FNP PCP - General NURSE PRACTITIONER 01/03/22
--- OUTSIDE RECORDS SUMMARY | 2025-01-18 15:27 | XMS_ITS | Clinical Summary ---
Author Organization [facility] Address [address] [place] [address] Care Team Providers Care Cell Liner Name Role Phone Sherri Herman NP Unavailable [phone] Farshad Rodriguez MD Primary Care Provider [phone] Allergies Active Allergy Reactions Criticality Noted Date [...] Description 12/17/2024 2:45 PM CDT Office Visit [facility] Ophthalmology [address] [phone] Malick Rogers MD IIH (idiopathic intracranial hypertension) (Primary Dx); Papilledema; Chiari malformation type I (HCC) 12/17/2024 2:20 PM CDT Imaging Exam [facility] Ophthalmology [address] [place] [phone] Unspecified disorder of visual pathways 12/17/2024 2:10 PM CDT Imaging Exam [facility] Ophthalmology [address] [phone] Unspecified disorder of visual pathways 12/16/2024 Orders Only [facility] Ophthalmology [address] [phone] Malick Rogers MD Unspecified disorder of visual pathways (Primary Dx) 12/09/2024 Telephone [facility] Ophthalmology [address] [place] [address] Malick Rogers MD new symptoms 11/30/2024 9:17 AM CDT - 11/30/2024 11:59 PM CDT Hospital Encounter [facility] [address] [place] [address] Discharge Disposition: Discharge to home or self care 11/30/2024 9:16 AM CDT - 11/30/2024 11:59 PM CDT Hospital Encounter [facility] [address] [place] [address] Discharge Disposition: Discharge to home or self care 11/30/2024 9:16 AM CDT - 11/30/2024 11:59 PM CDT Hospital Encounter [facility] [address] [place] [address] Discharge Disposition: Discharge to home or self care 11/27/2024 10:50 AM CDT Imaging Exam [facility] Ophthalmology [facility] [address] [place] [phone] 11/27/2024 10:45 AM CDT Imaging Exam [facility] Ophthalmology [address] [phone] 11/27/2024 9:30 AM CDT Office Visit [facility] Ophthalmology [address] [phone] Malikc Rogers MD IIH (idiopathic intracranial hypertension) (Primary Dx); Papilledema; Chiari malformation type I (HCC) 11/27/2024 Telephone [facility] Ophthalmology [address] [phone] Malick Rogers MD from Last 3 Months Surgical History Surgery Date Site/Laterality Comments DE OCCLUSION FLP TUBE DEV VAG/SUPRAPUBIC APPR Oviductal [...] thinning us Malick Rogers MD OPHTH TOMOGRAPHY [facility] Result * OCT, Optic Nerve - [...] only and have not been reviewed by [facility]. There will be no report generated by a [facility] Radiologist. Narrative RAD_PACS_BJ - 11/30/2024 9:17 AM CDT EXAMINATION: Images For Reference Purposes Only Malick Rogers MD IMG MRI PROCEDURES F inal Result Performing Organization Address City/[facility] de Phone Number [email or web address] * Neuro MR Outside Reference (11/30/2024 9:16 AM CDT) Impressions MIAN_JO_[facility]JH - 11/30/2024 9:16 AM CDT These images are for Reference purposes only and have not been reviewed by [facility]iology. There will be no report generated by a [facility] Radiologist. Narrative RAD_JO_BJH - 11/30/2024 9:16 AM CDT EXAMINATION: Images For Reference Purposes Only Malick Rogers MD IMG MRI PROCEDURES F inal Result Performing Organization Address [facility] de Phone Number [email or web address] * Neuro MR Outside Reference (11/30/2024 9:16 AM CDT) Impressions KELLY_BJ - 11/30/2024 9:16 AM CDT These images are for Reference purposes only and have not been reviewed by [facility] Radiology. There will be no report generated by a [facility] Radiologist. Narrative MIAN_JO_BJ - 11/30/2024 9:16 AM CDT EXAMINATION: Images For Reference Purposes Only Malick Rogers MD IMG MRI PROCEDURES F inal Result Performing Organization Address [facility] de Phone Number [email or web address] * Fundus [...] - Final from Last 3 Months Insurance [facility] HMO [facility] OPEN ACCESS [facility] CHOICE PLUS [facility] PLUS Care Teams Cell Liner Relationship Specialty Start Date End Date Farshad Rodriguez MD [address] [place] [address] PCP - General Emergency Medicine 09/14/24 Sherri Herman NP 10/04/17
--- OUTSIDE RECORDS SUMMARY | 2025-01-18 15:27 | XMS_ITS | Encounter Summary ---
Author Organization [facility] Health Address [address] [facility] [place] [address] Care Team Providers Care Special Events Planner Name Role Phone Farshad Rodriguez MD Primary Care Provider [phone] Encounter Details Date Type Department Care Team (Late st Contact Info) Description 08/26/2024 Ophth Exam [facility] - Ophthalmology [address] [place] [address] Td Barraza, DO [address] [facility] [place] [address] Social History Tobacco Use Types [...] and heating? Not hard at all 08/27/2024 [facility] [place] of Occupat ional Health - Occupational Stress [...] any time in the past 12 m [facility], were you homeless or living in a jail (including now)? No 08/27/2024 Comments No Sex [...] Video Visit [facility] - Neurology [address] [place] [address], [facility] [place] [address] Ora Webb APRN-SEW OUT OPERATOR [address] [place] [address] [place] [address] 01/27/2025 4:30 PM CDT Video Visit [facility] Health Weight Management Services [address] [place] [address], [address] [address] 02/11/2025 3:45 PM CDT Clinical Support [facility] Weight Management Services [address] [place] [address], [address] [address] 02/15/2025 2:40 PM CDT Office Visit [facility] Weight Management Services [address] [place] [address], [address] [address] [place] [address] [address] [address] 02/24/2025 8:15 PM CDT Appointment [facility] - Sleep Lab [address] [place] [phone] [place] [address] [address] [address] 03/17/2025 2:15 PM CDT Office Visit [facility] Health Weight Management Services [address] [place] [address], [address] [address] Adina Bowen EMPLOYEE BENEFITS COORDINATOR-SEW OUT OPERATOR [address] [address] [phone] 03/18/2025 8:00 AM CDT Office Visit [facility] - ENT [address] [place] [address], [place] [address] Emiliano Boyce MD [address] [place] [address] [address] [place] [address] 04/09/2025 11:30 AM CDT Office Visit [facility] - Nephrology [address] [facility], [place] [address] Ania Lucia MD [address] [place] [address] [place] [address] documented as of this encounter Visit Diagnoses Not on filedocumented in this encounter Care Teams Special Events Planner Relationship Specialty Start Date End Date Farshad Rodriguez MD [address] [place] [address] 3 [place] [address] PCP - General Family Medicine 08/26/24 documented as of this encounter
[2025-01-18 15:38] LABS: Hematocrit 35.3 % (37.0-47.0); Hemoglobin 11.3 g/dL (12.0-15.0); Immature Granulocyte Percent A 0.2 % (0-0.5); Lymphocytes Absolute Auto 2.47 K/mm3 (0.9-3.2); Mean Corpuscular HGB Conc 32.0 g/dl (32-36); Mean Corpuscular Hemoglobin 26.7 pg (26-34); Mean Corpuscular Volume 83.3 fl (80-100); Nucleated Red Blood Cells Absolute Auto 0.000 K/mm3 (0.0-0.012); Nucleated Red Blood Cells Perc 0.0 % (0.0-0.2); Platelet Count Result 235 k/mm3 (150-375); Red Blood Count 4.24 M/mm3 (4.2-5.4); White Blood Count 9.0 K/mm3 (4.5-10.0)
[2025-01-18 16:01] VITALS: BP 119/71; PULSE 82; RESP 20; O2SAT 100
[2025-01-18 16:03] LABS: BEDSIDEPREGUCG Negative (Negative)
[2025-01-18 16:48] LABS: Alanine Aminotransferase 17 U/L (6-35); Albumin Level 4.1 g/dL (3.5-5.1); Alkaline Phosphatase 63 U/L (38-126); Anion Gap 10 mmol/L (4-12); Aspartate Amino Transferase 24 U/L (14-36); Bilirubin,Total 0.3 mg/dL (0.2-1.3); Blood Urea Nitrogen 4 mg/dL (7-17); Calcium 9.0 mg/dL (8.4-10.2); Carbon Dioxide 17 mmol/L (22-30); Chloride 112 mmol/L (98-107); Estimated CRCL calculation 130 ml/min; Estimated Glomerular Filt Rate > 60; Glucose 81 mg/dL (65-110); Potassium 3.4 mmol/L (3.4-5.0); Sodium 139 mmol/L (137-145); Total Protein 7.6 g/dL (6.3-8.2)
== END 2025-01-18 18:14 | disposition home or self-care (01) ==
PROVIDERS: Emergency Provider Emergency Medicine; PCP Emergency Medicine
DX: S59.902A Unspecified injury of left elbow, initial encounter (principal); S79.911A Unspecified injury of right hip, initial encounter; R07.89 Other chest pain; Z87.440 Personal history of urinary (tract) infections; R91.1 Solitary pulmonary nodule; K76.9 Liver disease, unspecified; W17.2XXA Fall into hole, initial encounter
CPT/HCPCS: 36415; 71260; 73080; 74177; 80053; 81025; 85025; 99284; Q9967

== ENCOUNTER 2025-01-29 08:58 | Outpatient (CLI) | payer OTHER, SELFPAY ==
--- NOTE | ~2025-01-29 | MR_ITS ---
EXAMINATION: MR abdomen wo con DATE: 01/29/2025 09:42 INDICATION: Liver lesion on prior CT TECHNIQUE: Magnetic resonance imaging (MRI) of the abdomen was performed without intravenous contrast. Sequences included coronal T2-weighted SS-FSE, coronal and axial FS 2D-FIESTA, axial STIR FSE, axial T2-weighted SS-FSE, axial T2- weighted FS SS-FSE, axial diffusion-weighted SE, axial dual-echo T1-weighted FSPGR, and axial and coronal T1-weighted LAVA. COMPARISON: CT dated 01/18/25 FINDINGS: Heart size is normal. No pericardial or pleural effusion. 8 mm homogeneously T2 fluid signal intensity cyst in the right hepatic lobe. There is signal dropout on opposed phase imaging and decreased T1 signal on fat-saturated imaging IVb of the liver along the falciform consistent with focal hepatic steatosis. No other liver lesions identified. Gallbladder, spleen, pancreas, bilateral adrenal glands and kidneys are normal. Visualized portions of bowels including the appendix are normal. No pathologically enlarged abdominal or upper pelvic lymphadenopathy. Bone marrow signal is normal throughout. IMPRESSION: 1. The lesion of concern corresponds to focal hepatic steatosis at the ligamentum teres and in 8 mm hepatic cyst. Otherwise unremarkable abdomen MRI. Reviewed, dictated and finalized at location A. IMPRESSION: 1. The lesion of concern corresponds to focal hepatic steatosis at the ligament um teres and in 8 mm hepatic cyst. Otherwise unremarkable abdomen MRI.
== END 2025-01-29 08:59 | disposition home or self-care (01) ==
LOC: GOSHIMG 08:58
PROVIDERS: PCP Emergency Medicine; Visit Provider Emergency Medicine
DX: K76.89 Other specified diseases of liver (principal)
CPT/HCPCS: 74181

== ENCOUNTER 2025-02-02 12:13 | Outpatient (CLI) | payer OTHER, SELFPAY ==
--- NOTE | ~2025-02-02 | PE_ITS ---
EXAMINATION: PET skull to mid thigh DATE: 02/02/2025 15:39 INDICATION: Left lower lobe lung cancer TECHNIQUE: Blood glucose level was 69 mg/dL. 10.077 mCi of 18-fluorodeoxyglucose (18-FDG) was administered i.v. Low dose computed tomography (CT) images were acquired from the base of the brain to the proximal thighs for attenuation correction and anatomic localization. Positron emission tomography (PET) images were acquired in the same distribution beginning 66 minutes after injection. Images including fused PET/CT images were reconstructed in axial, coronal, and sagittal planes. Automated exposure control technique was employed. The dose- length product was 1319.86mGy-cm. COMPARISON: CT dated 01/18/2025 FINDINGS: Head/neck: There is symmetric increased activity in the oral cavity, palatine and lingual tonsils and ocular muscles without CT correlate, likely physiologic. No pathologically enlarged cervical lymphadenopathy or suspicious foci of increased FDG uptake in the visualized head or neck. Chest: Again seen is a 1.3 x 1.0 cm perihilar mass along the apical posterior segmental bronchus of the left upper lobe which is without evident FDG activity. The mass has a relatively low density of [address] imaging suggesting this could be cystic or potentially a hamartoma. Evaluation is however more limited on the larger [id number] of the PET/CT relative to a standard CT. No other suspicious pulmonary nodules or other pulmonary infiltrates. No pleural effusion. Heart size is normal. No pericardial effusion. Thoracic aorta is normal in caliber. No pathologically enlarged or FDG avid thoracic lym phadenopathy. 11.5 x 7.9 x 2.9 cm homogeneously macroscopic fat attenuation subcutaneous lipoma at the posterior upper right hemithorax along the medial margin of the right scapula. Abdomen/pelvis/proximal thighs: Physiologic renal accumulation and excretion of FDG activity in the kidneys, bladder and along portions of ureters. Normal degree and heterogenous pattern of increased uptake throughout the liver without radiologic correlate or dominant FDG avid lesion. The gallbladder, pancreas, spleen and bilateral adrenal glands are normal. Mild uptake scattered throughout the bowels without radiologic correlate, also likely physiologic. Normal appendix. Uterus and bilateral adnexa are unremarkable. No free intraperitoneal gas or fluid. No other abnormal foci of increased FDG uptake or pathologically enlarged lymphadenopathy in the abdomen, pelvis or proximal thighs. Musculoskeletal: No suspicious lytic, blastic or abnormally FDG avid bone lesions. Small amount of likely extravasated soft tissue activity at the site of injection at the left hand. IMPRESSION: 1. No FDG activity associated with a 1.3 x 1.0 cm relatively low density mass in the perihilar left upper lobe. This favors a benign etiology such as a hamartoma or cystic lesion. Would recommend dedicated noncontrast chest CT to assess for any macroscopic fat within the lesion which would be diagnostic of a hamartoma. No other lesions suspicious for malignancy/metastatic disease.. Reviewed, dictated and finalized at location A. IMPRESSION: 1. No FDG activity associated with a 1.3 x 1.0 cm relatively low density mass i n the perihilar left upper lobe. This favors a benign etiology such as a hamart geovanni or cystic lesion. Would recommend dedicated noncontrast chest CT to assess for any macroscopic fat within the lesion which would be diagnostic of a hamart geovanni. No other lesions suspicious for malignancy/metastatic disease..
--- OUTSIDE RECORDS SUMMARY | 2025-02-02 12:19 | XMS_ITS | Encounter Summary ---
Author Organization [facility] Health Address [address] [facility] [place] [address] Care Team Providers Care Labor Law Professor Name Role Phone Farshad Rodriguez MD Primary Care Provider [phone] Encounter Details Date Type Department Care Team (Late st Contact Info) Description 08/26/2024 Ophth Exam [facility] - Ophthalmology [address] [facility], [place] [address] Td Barraza, DO [address] [facility] [place] [address] Social History Tobacco Use Types [...] and heating? Not hard at all 08/27/2024 [facility] [place] of Occupat ional Health - Occupational Stress [...] any time in the past 12 m [facility], were you homeless or living in a [facility]p (including now)? No 08/27/2024 Comments No Sex [...] alcohol? Monthly or less 08/27/2024 3:38 PM DELT Shauna Helm RN Q2: How many drinks containing alcohol do you have on a typical day when you are drinking? 1 or 2 08/27/2024 3:38 PM CDT Jessie Helm RN Q3: How often do you have six or more drinks on one occasion? Never 08/27/2024 3:38 PM Shauna Upton RN * Audit-C Score Answer Date of Assessment Author 1 08/27/2024 3:38 PM DELT Shauna Helm, RN documented as of this encounter Plan of Treatment Upcoming Encounters Date Type Department Care Team (Late st Contact Info) Description 02/03/2025 4:30 PM CDT Video Visit [facility] Health Weight Management Services [address] [facility], [address] [place] [address] 02/11/2025 3:45 PM CDT Clinical Support [facility] Health Weight Management Services [address] [place] [address], [facility] [address] [place] [address] 02/15/2025 2:40 PM CDT Office Visit [facility] Health Weight Management Services [address] [place] [address], [facility] [address] [place] [address] [place] [address] [address] [place] [address] 03/17/2025 2:15 PM CDT Office Visit [facility] Weight Management Services [address] [place] [address], [facility] [address] [place] [address] Adina Bowen, ATTENDANT COIN OPERATED LAUNDRY-CAN LINE EXAMINER [address] [address] [facility] [address] [place] [phone] 03/18/2025 8:00 AM CDT Office Visit [facility] - ENT [address] [place] [phone] Emiliano Boyce MD [address] [place] [address] 04/09/2025 11:30 AM CDT Office Visit [facility] - Nephrology [address] [place] [phone] Ania Lucia MD [address] [place] [address] [place] [address] documented as of this encounter Visit Diagnoses Not on filedocumented in this encounter Care Teams Labor Law Professor Relationship Specialty Start Date End Date Farshad Rodriguez MD [address] [place] [address] 3 [place] [address] PCP - General Family Medicine 08/26/24 documented as of this encounter
--- OUTSIDE RECORDS SUMMARY | 2025-02-02 12:19 | XMS_ITS | Encounter Summary ---
Author Organization [facility] Health Address [address] [facility] [place] [address] Care Team Providers Care Commercial Photographer Name Role Phone Farshad Rodriguez MD Primary Care Provider [phone] Reason for Visit * Reason Comments Refill Request Encounter Details Date Type Department Care Team (Late st Contact Info) Description 01/31/2025 Refill [facility] - ENT [address] [facility], [place] [address] Emiliano Boyce MD [facility] [address] [place] [address] Refill Request Social History Tobacco Use Types Packs/Day Years [...] Recorded Patient Health Questionnaire-2 Score 0 09/17/2024 [facility] [place] of Occupat ional Health - Occupational Stress [...] were you homeless or living in a [facility] (including now)? No 08/27/2024 Comments No Sex [...] Shauna Helm RN documented in this encounter Miscellaneous Notes * Telephone Encounter - Myra Mcrae RN - 02/01/2025 11:07 AM CDT Refills authorized per Otolaryngology protocol 12/08/2024. LAURENT 01/01 documented in this encounter Plan of Treatment Upcoming Encounters Date Type Department Care Team (Late st Contact Info) Description 02/03/2025 4:30 PM CDT Video Visit [facility] Health Weight Management Services [address] [place] [address] 02/11/2025 3:45 PM CDT Clinical Support [facility] Health Weight Management Services [address] [place] [address] 02/15/2025 2:40 PM CDT Office Visit [facility] Health Weight Management Services [address] [place] [address] [place] [address] [address] [address] 03/17/2025 2:15 PM CDT Office Visit [facility] Health Weight Management Services [address] [place] [address] Adina Bowen, SPIN TANK TENDER-MEN'S LOCKER ROOM ATTENDANT [address] [address] [phone] 03/18/2025 8:00 AM CDT Office Visit [facility] - ENT [address] [place] [phone] Emiliano Boyce MD [address] [place] [address] [place] [address] 04/09/2025 11:30 AM CDT Office Visit [facility] - Nephrology [address] [place] [address], [place] [address] Ania Lucia MD [address] [place] [address] [place] [address] documented as of this encounter Visit Diagnoses Not on filedocumented in this encounter Care Teams Commercial Photographer Relationship Specialty Start Date End Date Farshad Rodriguez MD [address] [place] [address] [address] [place] [address] PCP - General Family Medicine 08/26/24 documented as of this encounter
--- OUTSIDE RECORDS SUMMARY | 2025-02-02 12:19 | XMS_ITS | Encounter Summary ---
Author Organization [facility] Health Address [address] [place] [address] Care Team Providers Care Health Education Coordinator Name Role Phone Farshad Rodriguez MD Primary Care Provider [phone] Encounter Details Date Type Department Care Team (Late st Contact Info) Description 08/27/2024 Ophth Exam [facility] - Ophthalmology [address] [place] [phone] Claude Ross MD [address] [place] [address] [place] [address] Social History Tobacco Use Types [...] and heating? Not hard at all 08/27/2024 [facility] ional Health - Occupational Stress [...] any time in the past 12 m [facility], were you homeless or living in [...] 3:39 PM CDT Shauna Helm RN documented as of this encounter Mental Status * Does person have difficulty concentrating/remembering/making decisions? Answer Entry Date Author No 08/27/2024 3:39 PM DELT Shauna Helm RN documented in this encounter Plan of Treatment Upcoming Encounters Date Type Department Care Team (Late st Contact Info) Description 02/03/2025 4:30 PM CDT Video Visit [facility] Weight Management Services [address] [place] [address] 02/11/2025 3:45 PM CDT Clinical Support [facility] Weight Management Services [address] [place] [address] 02/15/2025 2:40 PM CDT Office Visit [facility] Weight Management Services [address] [place] [address] [place] [address] [address] [address] 03/17/2025 2:15 PM CDT Office Visit [facility] Weight Management Services [address] [place] [address] Adina Bowen, SENIOR BIOSTATISTICIAN-THERAPY AIDE [address] [phone] 03/18/2025 8:00 AM CDT Office Visit [facility] - ENT [address] [facility], [place] [address] Emiliano Boyce MD [address] [facility] [address] [place] [address] 04/09/2025 11:30 AM CDT Office Visit [facility] - Nephrology [facility] [facility], [facility] [place] [phone] Ania Luica MD [address] [place] [address] [place] [address] documented as of this encounter Visit Diagnoses Not on filedocumented in this encounter Care Teams Health Education Coordinator Relationship Specialty Start Date End Date Farshad Rodriguez MD [address] [place] [address] 3 [place] [address] PCP - General Family Medicine 08/26/24 documented as of this encounter
--- OUTSIDE RECORDS SUMMARY | 2025-02-02 12:19 | XMS_ITS | Clinical Summary ---
Author Organization [facility] Address [address] [place] [address] Care Team Providers Care Logging Truck Driver Name Role Phone Unavailable Primary Care Provider Unavailabl e Allergies No known active allergies Medications acetaZOLAMIDE (DIAMOX SEQUELS) 500 mg Extended Release capsule 5 Active azelastine (ASTELIN) 137 mcg/actuation nasal spray 5 Active ferrous sulfate 325 mg (65 mg iron) tablet Take 325 mg by mouth daily at bedtime. 5 Active fluticasone propionate (FLONASE) 50 mcg/spray [place], Suspension nasal inhaler Administer 2 Sprays in each nostril daily. 5 Active potassium CITRATE (UROCIT-K) 10 mEq (1,080 mg) Extended Release tablet take 1 tablet by mouth 3 times daily with meals 5 Active Active Problems No known active problems Encounters Date Type Department Care Team Description 01/26/2025 3:00 PM CDT Office Visit [facility] Oncology and Hematology - [place] [address] [phone] Ezekiel Hayes MD Malignant neoplasm of lower lobe of left lung (CMS/HCC) (Primary Dx) from Last 3 Months Family History Medical History Relation Name Comments No Known Problems Brother 1 No Known Problems Brother 2 No Known Problems Brother 3 No Known Problems Child 1 No Known Problems Child 2 Heart Disease Father Heart Disease Mother Relation Name Status Comments Brother 1 Alive Brother 2 Alive Brother 3 Alive Child 1 Alive Child 2 Alive Father Mother Alive Social History Tobacco Use Types Packs/Day Years Used Date Smoking Tobacco: Never Smokeless Tobacco: Never Alcohol Use Standard Drinks/Week Comments Yes 0 (1 standard drink = 0.6 oz pur e alcohol) Occasionally Comments Unknown Sex and Gender Information Value Date Recorded Sex Assigned at Not on file Legal Sex Female 11:58 AM CDT Gender Identity Not on file Sexual Orientation Not on file Last Filed Vital Signs Vital Sign Reading Time Taken Comments Blood Pressure 112/76 01/26/2025 3:08 PM CDT Pulse 75 01/26/2025 3:08 PM CDT Temperature 36.2 C (97.2 F) 01/26/2025 3:08 PM CDT Respiratory Rate 15 01/26/2025 3:08 PM CDT Oxygen Saturation 94% 01/26/2025 3:08 PM CDT Inhaled Oxygen Concentration - - Weight 106.3 kg (234 lb 6.4 oz) 01/26/2025 3:08 PM CDT Height 160 cm (5' 3) 01/26/2025 3:08 PM CDT Body Mass Index 41.52 01/26/2025 3:08 PM CDT Plan of Treatment Upcoming Encounters Date Type Department Care Team (Late st Contact Info) Description 02/09/2025 4:00 PM CDT Telephone Check Up [facility] Oncology and Hematology - [place] [address] [place] [address] Sadaf Elizabeth MD [address] [place] [address] Health Maintenance Due Date Last Done Comments Pre-Diabetes and Diabetes Screening 1982 DTAP/TDAP/TD VACCINES (6 - Tdap) 1993 02/01/1988, 02/04/1987, 03/30/1983, Additional history exists HEPATITIS B VACCINES (1 of 3 - 19+ 3-dose series) 2001 HPV/Cotest (21-29) 2003 HPV VACCINES (1 - 3-dose SCD M series) 2009 HPV/Cotest (30-65) 2012 BREAST CANCER SCREENING 2022 COVID-19 Vaccine (3 - 2023-2 5 season) 2024 10/22/2020, 10/01/2020 INFLUENZA VACCINE (#1) 2025 CERVICAL CANCER SCREENING 08/19/2027 PAP SMEAR 08/19/2027 08/18/2024 Insurance
--- OUTSIDE RECORDS SUMMARY | 2025-02-02 12:19 | XMS_ITS | Clinical Summary ---
Author Organization [facility] [employer] Address [address] [place] [address] Care Team Providers Care Light Bulb Assembler Name Role Phone Sherri Herman NP Unavailable [phone] Farshad Rodriguez MD Primary Care Provider [phone] Allergies Active Allergy Reactions Criticality Noted Date [...] Description 12/17/2024 2:45 PM CDT Office Visit [facility] Ophthalmology [address] [place] [phone] Malick Rogers MD IIH (idiopathic intracranial hypertension) (Primary Dx); Papilledema; Chiari malformation type I (HCC) 12/17/2024 2:20 PM CDT Imaging Exam [facility] Op[facility] [address] [place] [phone] Unspecified disorder of visual pathways 12/17/2024 2:10 PM CDT Imaging Exam [facility] [address] [place] [phone] Unspecified disorder of visual pathways 12/16/2024 Orders Only [facility] Op[facility] [address] [place] [phone] Malick Rogers MD Unspecified disorder of visual pathways (Primary Dx) 12/09/2024 Telephone [facility] [address] [place] [address] Malick Rogers MD new symptoms 11/30/2024 9:17 AM CDT - 11/30/2024 11:59 PM CDT Hospital Encounter [facility] [address] [place] [address] Discharge Disposition: Discharge to home or self care 11/30/2024 9:16 AM CDT - 11/30/2024 11:59 PM CDT Hospital Encounter [facility] [address] [place] [address] Discharge Disposition: Discharge to home or self care 11/30/2024 9:16 AM CDT - 11/30/2024 11:59 PM CDT Hospital Encounter [facility] [address] [place] [address] Discharge Disposition: Discharge to home or self care 11/27/2024 10:50 AM CDT Imaging Exam [facility] Medicine Ophthalmology [address] [place] [phone] 11/27/2024 10:45 AM CDT Imaging Exam [facility] Medicine Ophthalmology [address] [place] [phone] 11/27/2024 9:30 AM CDT Office Visit [facility] Ophthalmology [address] [place] [phone] Malick Rogers MD IIH (idiopathic intracranial hypertension) (Primary Dx); Papilledema; Chiari malformation type I (HCC) 11/27/2024 Telephone [facility] Medicine Ophthalmology [address] [place] [phone] Malick Rogers MD from Last 3 Months Surgical History Surgery Date Site/Laterality Comments MS OCCLUSION FLP TUBE DEV VAG/SUPRAPUBIC APPR Oviductal [...] 3-dose SCDM series) 2009 Covid-19 Vaccine ( - season) 2024 10/22/2020, 10/01/2020 Influenza Vaccine (#1) [...] thinning us Malick Rogers MD OPHTH TOMOGRAPHY Fin al Result * OCT, Optic Nerve - OU [...] OS: Improved RNFL thickness with superior thinning Result [facility] Malick Rogers MD OPH TOMOGRAPHY Caio jorge [...] with possible inferior deficits. Questionably reliable study Result [facility] Malick Rogers MD [facility] VISUAL FIELD F inal Result * Neuro MR Outside Reference (11/30/2024 9:17 AM CDT) Impressions RAD[facility]PACS_[facility] - 11/30/2024 9:17 AM CDT These images are for Reference purposes only and have not been reviewed by [facility] Radiology. There will be no report generated by a [facility] Radiologist. Narrative RAD_PACS_[facility] - 11/30/2024 9:17 AM CDT EXAMINATION: Images For Reference Purposes Only Malick Rogers MD IMG MRI PROCEDURES F inal Result Performing Organization Address [facility] de Phone Number [email or web address] * Neuro MR Outside Reference (11/30/2024 9:16 AM CDT) Impressions [facility] - 11/30/2024 9:16 AM CDT These images are for Reference purposes only and have not been reviewed by [facility] Radiology. There will be no report generated by a [facility] Radiologist. Narrative RAD_PACS_[facility] - 11/30/2024 9:16 AM CDT EXAMINATION: Images For Reference Purposes Only Malick Rogers MD IM MRI PROCEDURES F inal Result Performing Organization Address [facility] de Phone Number [email or web address] * Neuro MR Outside Reference (11/30/2024 9:16 AM CDT) Impressions [facility] - 11/30/2024 9:16 AM CDT These images are for Reference purposes only and have not been reviewed by [facility] Radiology. There will be no report generated by a [facility] Radiologist. Narrative [facility]_PACS[facility] - 11/30/2024 9:16 AM CDT EXAMINATION: Images For Reference Purposes Only Malick Rogers MD IMG MRI PROCEDURES F inal Result Performing Organization Address [facility] de Phone Number [email or web address]_[email or web address] * Fundus Photos/FAF - OU - Both Eyes (11/27/2024 10:58 AM CDT) Anatomical Region Laterality Modality Head Fundus Photograp hy Narrative 11/27/2024 3:05 PM CDT Right Eye Quality was good. Left Eye Quality was good. Notes Grade II papilledema OU, remainder of the fundus unremarkable OU. Normal background auto fluorescence OU. us Fabiana Flores MD OPHTH PHOTOGRAPHY Final Result [...] - Final from Last 3 Months Insurance [facility] [employer] HMO [facility] OPEN ACCESS [facility] CHOICE PLUS [facility] CHOICE PLUS Care Teams Light Bulb Assembler Relationship Specialty Start Date End Date Farshad Rodriguez MD [address] [place] [address] PCP - General Emergency Medicine 09/14/24 Sherri Herman NP 10/04/17
--- OUTSIDE RECORDS SUMMARY | 2025-02-02 12:19 | XMS_ITS | Encounter Summary ---
Author Organization [facility] Health Address [address] [facility] [place] [address] Care Team Providers Care Rework Machine Operator Name Role Phone Farshad Rodriguez MD Primary Care Provider [phone] Encounter Details Date Type Department Care Team (Late st Contact Info) Description 08/26/2024 Ophth Exam [facility] - Ophthalmology [address] [place] [phone] Hien Zaragoza MD [address] [place] [address] Social History Tobacco Use Types Packs/Day Years [...] and heating? Not hard at all 08/27/2024 [facility] of Occupat ional Health - Occupational Stress [...] time in the past 12 m [facility], were you homeless or living in a [...] or less 08/27/2024 3:38 PM DELT Shauna Heml RN Q2: How many drinks containing alcohol do you have on a typical day when you are drinking? 1 or 2 08/27/2024 3:38 PM DELT Jessie Helm RN Q3: How often do you have six or more drinks on one occasion? Never 08/27/2024 3:38 PM DELT Shauna Helm RN * Audit-C Score Answer Date of Assessment Author 1 08/27/2024 3:38 PM DELT Shauna Helm, RN documented as of this encounter Plan of Treatment Upcoming Encounters Date Type Department Care Team (Late st Contact Info) Description 02/03/2025 4:30 PM CDT Video Visit [facility] Weight Management Services [address] [facility], [address] [place] [address] 02/11/2025 3:45 PM CDT Clinical Support [facility] Weight Management Services [address] [place] [address], [address] [place] [address] 02/15/2025 2:40 PM CDT Office Visit [facility] Weight Management Services [address] [place] [address], [facility] [address] [place] [address] [place] [address] [address] [place] [address] 03/17/2025 2:15 PM CDT Office Visit [facility] Weight Management Services [address] [place] [address], [facility] [address] [place] [address] Adina Bowen, ROVING HAULER-BLACK BELT [address] [address] [facility] [address] [place] [phone] 03/18/2025 8:00 AM CDT Office Visit [facility] - ENT [address] [place] [address], [place] [phone] Emiliano Boyce MD [address] [place] [address] 04/09/2025 11:30 AM CDT Office Visit [facility] - Nephrology [address] [place] [address], [facility] [place] [phone] Ania Lucia MD [address] [place] [address] [place] [address] documented as of this encounter Visit Diagnoses Not on filedocumented in this encounter Care Teams Rework Machine Operator Relationship Specialty Start Date End Date Farshad Rodriguez MD [address] [place] [address] 3 [place] [address] PCP - General Family Medicine 08/26/24 documented as of this encounter
--- OUTSIDE RECORDS SUMMARY | 2025-02-02 12:19 | XMS_ITS | Encounter Summary ---
Author Organization [facility] Health Address [address] [facility] [place] [address] Care Team Providers Care Counter Former Name Role Phone Farshad Rodriguez MD Primary Care Provider Encounter Details Date Type Department Care Team (Late Contact Info) Description 01/21/2025 Results Follow-Up [facility] Weight Management Services [address] [place] [address] [place] [address] [address] Social History Tobacco Use Types [...] Recorded Patient Health Questionnaire-2 Score 0 09/17/2024 [facility] [place] of Occupat ional Health - Occupational Stress [...] Description 02/03/2025 4:30 PM CDT Video Visit [facility] Health Weight Management Services [address] [place] [address], [address] [address] 02/11/2025 3:45 PM CDT Clinical Support [facility] Weight Management Services [address] [place] [address] 02/15/2025 2:40 PM CDT Office Visit [facility] Health Weight Management Services [address] [place] [address] [place] [address] [address] [address] 03/17/2025 2:15 PM CDT Office Visit [facility] Health Weight Management Services [address] [place] [address], [address] [address] Adina Bowen, DEVELOPMENT GEOLOGIST-BELT DRESSER [address] [address] [phone] 03/18/2025 8:00 AM CDT Office Visit [facility] - ENT [address] [place] [address], [place] [phone] Emiliano Boyce MD [address] [place] [address] [address] [place] [address] 04/09/2025 11:30 AM CDT Office Visit [facility] - Nephrology [address] [place] [address], [place] [phone] Ania Lucia MD [address] [place] [address] [place] [address] documented as of this encounter Visit Diagnoses Not on filedocumented in this encounter Care Teams Counter Former Relationship Specialty Start Date End Date Farshad Rodriguez MD [address] [place] [address] PCP - General Family Medicine 08/26/24 documented as of this encounter
--- OUTSIDE RECORDS SUMMARY | 2025-02-02 12:19 | XMS_ITS | Clinical Summary ---
Author Organization [facility] Address [address] [place] [address] Care Team Providers Care V Belt Builder Name Role Phone Farshad Rodriguez MD Primary Care Provider [phone] Source Comments [facility],non-owned Affiliates and Associated Physician Practices is amultiple site organization consisting of ambulatory clinics and hospital sitesin [place], [place], [place] and [place]. This disclosure is being madepursuant to the Care Everywhere program and may not contain all information available regarding this patient. Last updated 18.[facility] Allergies Active Allergy Reactions Criticality Noted Date [...] times daily. 340 capsule 4 08/29/19 25 2025 Active ondansetron, disintegratin g, (Zofran ODT) 4 MG tablet Take 1 [...] Active azelastine (Astelin) 0.1 % nasal spray [place] 1 (one) spray to 2 (two) sprays into each nostril 2 times daily 90 mL 5 11/06/19 25 Active potassium citrate (Urocit K [...] by mouth once daily as needed Active fluticasone propionate (Flonase) 50 MCG/ACT nasal spray SPRAY 2 SPRAYS INTO EACH NOSTRIL EVERY DAY 48 g 1 02/02/[address] (Depakote) 125 MG tablet Take 1 (one) tablet by mouth 2 times daily 180 tablet 4 10/16/19 25 2024 Discontinued(L ist Clean-Up) butalbital-ac etaminophen-c affeine (Fioricet) 50-300-40 MG capsuleIndica tions:Intract able episodic tension-type headache Take 1 (one) capsule by mouth every 4 hours as needed for Headache 30 capsule 5 10/16/19 25 2024 Discontinued(L ist Clean-Up) naproxen (Naprosyn) 500 MG tablet Take 1 (one) tablet by mouth 2 times daily 30 tablet 10/17/19 25 2024 Discontinued(L ist Clean-Up) fluticasone propionate (Flonase) 50 MCG/ACT nasal spray [place] 2 (two) sprays into each nostril once daily 16 g 4 11/06/19 25 2024 Discontinued Active Problems Problem Noted Date Diagnosed Date [...] Encounters Date Type Department Care Team Description 01/31/2025 Refill [facility] E[facility] [address] [place] [phone] Emiliano Boyce MD Refill Request 01/29/2025 Orders Only [facility] Weight Management Services [address] [place] [address], [facility] [address] [place] [address] Kathy Cortes MD Snoring 01/27/2025 4:30 PM CDT Video Visit [facility] [address] [place] [address], [address] [address] Morbid obesity (HCC) 01/21/2025 Results Follow-Up [facility] [address] [place] [address], [address] [address] Kathy Cortes MD 01/20/2025 1:30 PM CDT Video Visit [facility] - Neurology [address] [place] [phone] Ora Webb, THERMO CEMENTING FOLDER OPERATOR-GLASS CLEANER Intractable episodic tension-type headache 01/15/2025 Travel 01/14/2025 12:00 PM CDT Office Visit [facility] Weight Management Services [address] [place] [address], [address] [address] Kathy Cortes MD Class 3 severe obesity with body mass index (BMI) of 40.0 to 44.9 in adult, unspecified obesity type, unspecified whether serious comorbidity present (HCC) (Primary Dx); Dyslipidemia; Vitamin D deficiency; Snoring; Pre-diabetes 01/14/2025 Office Visit External [facility] Weight Management Services [address] [place] [address], [facility] [address] [place] [address] Kathy Cortes MD 01/14/2025 Office Visit External [facility] [address] [facility], [address] [place] [address] Kathy Cortes MD 12/30/2024 Travel 12/21/2024 3:15 PM CDT Office Visit [facility] - ENT [address] [place] [phone] Emiliano Boyce MD Tinnitus aurium, bilateral (Primary Dx) 12/21/2024 Travel 11/13/2024 2:00 PM CDT Office Visit [facility] - Nephrology [address] [place] [phone] Claude Ross MD Kidney stones (Primary Dx); Renal stone; Vitamin D deficiency 11/13/2024 Travel 11/10/2024 2:20 PM CDT Clinical Support [facility] - Ophthalmology [address] [place] [phone] Claude Ross MD IIMya (idiopathic intracranial hypertension) (Primary Dx) 11/10/2024 2:15 PM CDT Clinical Support [facility] - Ophthalmology [address] [place] [phone] Claude Ross MD IIMya (idiopathic intracranial hypertension) (Primary Dx) 11/10/2024 2:10 PM CDT Clinical Support [facility] - Ophthalmology [address] [place] [phone] Claude Ross MD IIMya (idiopathic intracranial hypertension) (Primary Dx) 11/10/2024 2:00 PM CDT Office Visit [facility] - Ophthalmology [address] [place] [phone] Claude Ross MD IIH (idiopathic intracranial hypertension) (Primary Dx) 11/05/2024 10:15 AM CDT Office Visit [facility] - ENT [address] [place] [phone] Emiliano Boyce MD Tinnitus aurium, bilateral (Primary Dx) 11/05/2024 9:30 AM CDT Testing Visit [facility] - ENT [address] [facility], [place] [phone] OnofreKeren guAmari Sensorineural hearing loss (SNHL) of left ear with unrestricted hearing of right ear ; Tinnitus of both ears; Dizziness; Otalgia of both ears from Last 3 Months Immunizations Immunization Administration Dates Next Due Covid Pfizer primary monoval ent 12+ yr 0.3mL Purple [...] Recorded Patient Health Questionnaire-2 Score 0 09/17/2024 [place] [facility] Occupat ional Health - Occupational Stress [...] any time in the past 12 m [facility], were you homeless or living in a assisted (including now)? No 08/27/2024 Comments No Sex [...] Description 02/03/2025 4:30 PM CDT Video Visit [facility] [address] [facility] [facility], [address] [place] [address] 02/11/2025 3:45 PM CDT Clinical Support [facility] [address], [address] [place] [address] 02/15/2025 2:40 PM CDT Office Visit [facility] [address], [address] [place], [place] [phone] [place] [address] [address] [place], [place] [phone] 03/17/2025 2:15 PM CDT Office Visit [facility] [address] [facility], [address] [place] [address] Adina Bowen, THERMO CEMENTING FOLDER OPERATOR-GLASS CLEANER [address] [place] [phone] 03/18/2025 8:00 AM CDT Office Visit [facility] [address] [place] [address], [place] [phone] Emiliano Boyce MD [address] [place] [address] [address] [place] [address] 04/09/2025 11:30 AM CDT Office Visit [facility] - Nephrology [address] [place] [address], [place] [phone] Ania Lucia MD [address] [place] [address] [place] [address] Health Maintenance Due Date Last Done Comments LIPID TESTING 1982 MAMMOGRAM 1982 DTAP/TDAP/TD VACCINES (6 - Tdap) 1993 02/01/1988, 02/04/1987, 03/30/1983, Additional history exists HEPATITIS C SCREENING 03/23/2000 HEPATITIS B VACCINE (1 of 3 - 19+ 3-dose series) 2001 PNEUMOCOCCAL VACCINE (1 of 2 - PCV) 2001 HPV VACCINE (1 - 3-dose SCDM series) 2009 COVID-19 VACCINE (3 - 2024-25 season) 2024 10/22/2020, 10/01/2020 INFLUENZA VACCINE (#1) 2025 03/22/2014 PAP SMEAR 08/19/2027 08/18/2024, 08/18/2024 SCREENING FOR DIABETES 01/21/2028 , 10/16/2024, 08/28/2024, Additional history exists ZOSTER VACCINE (1 of [...] Procedure Name Priority Date/Time Associated Diagnosis Comments INSULIN LEVEL FASTING Routine 01/20/2025 8:32 AM CDT Class 3 severe obesity with body mass index (BMI) of 40.0 to 44.9 in adult, unspecified obesity type, unspecified whether serious comorbidity present (HCC) Pre-diabetes VITAMIN D 25-HYDROXY Routine 01/20/2025 8:32 AM CDT Vitamin D deficiency HEMOGLOBIN A1C Routine 01/20/2025 8:32 AM CDT Pre-diabetes EYE EXAM 12/17/2024 LITHOLINK 24HR URINE PANEL [...] 2:06 PM CDT IIH (idiopathic intracranial hypertension) AUDIOLOGY/TYMPANOME TRY ORDER Routine 11/05/2024 9:56 AM CDT from Last 3 Months Results * INSULIN LEVEL FASTING (01/20/2025 8:32 AM CDT) Insulin 8.3 uIU/mL [facility] Comment: Reference Range < or = 18.4 Risk: Optimal < or = 18.4 Moderate NA High >18.4 Adult cardiovascular event risk category cut points (optimal, moderate, high) are based on Insulin Reference Interval studies performed at [facility] in 2021. Test Performed at: [facility] [address] [place] [address] ARIANNE AARON MD Blood BLOOD SPECIMEN / Unknown 01/20/2025 8:32 AM CDT 01/20/2025 8:33 AM CDT us Kathy Cortes MD LAB - CHEMISTRY ORDERABLES F inal Result [address] [address] * (ABNORMAL) HEMOGLOBIN A1C (HgbA1C) (01/20/2025 8:32 AM CDT) Hemoglobin A1c 5.7(H) <5.7 % of total Hgb [facility] Comment: For someone without known diabetes, a hemoglobin A1c value between 5.7% and 6.4% is consistent with prediabetes and should be confirmed with a follow-up test. For someone with known diabetes, a value <7% indicates that their diabetes is well controlled. A1c targets should be individualized based on duration of diabetes, age, comorbid conditions, and other considerations. This assay result is consistent with an increased risk of diabetes. Currently, no consensus exists regarding use of hemoglobin A1c for diagnosis of diabetes for children. REPORT COMMENT: FASTING:YES Test Performed at: [facility] [address] ARIANNE AARON MD Blood BLOOD SPECIMEN / Unknown 01/20/2025 8:32 AM CDT 01/20/2025 8:33 AM CDT Kathy Cortes MD LAB - CHEMISTRY ORDERABLES F inal Result Performing Organization Address [facility] Co de Phone Number [facility] [phone] [place] [address] * VITAMIN D 25-HYDROXY (01/20/2025 8:32 AM CDT) Vitamin D, 25 Hydroxy 31 30 - 100 ng/mL [facility] Comment: Vitamin D Status 25-OH Vitamin D: Deficiency: <20 ng/mL Insufficiency: 20 - 29 ng/mL Optimal: > or = 30 ng/mL For 25-OH Vitamin D testing on patients on D2-supplementation and patients for whom quantitation of D2 and D3 fractions is required, the QuestAssureD(TM) 25-OH VIT D, (D2,D3), LC/MS/MS is recommended: order code [id number] (patients >2yrs). See Note 1 Note 1 For additional information, please refer to http://education.[employer]/faq/WKA433 (This link is being provided for informational/ educational purposes only.) Test Performed at: [facility] [address] [place] [address] ARIANNE AARON MD Blood BLOOD SPECIMEN / Unknown 01/20/2025 8:32 AM CDT 01/20/2025 8:33 AM CDT Kathy Cortes MD LAB - CHEMISTRY ORDERABLES F inal Result Performing Organization Address [facility] Co de Phone Number [facility] [phone] [place] [address] * EYE EXAM (12/17/2024) Anatomical Region Laterality Modality Other Narrative 12/17/2024 Ordered by an unspecified provider. Scanned Document SCANNING ONLY Final Result * [...] - 12/19/2024 6:09 AM CDT Performed at: 01 - [address] [id number] Positive Printer Operator: Saroj Raya PhD, Phone: [phone] Claude Ross MD LAB - URINE CHEMISTRY ORDERAB LES Final Result [facility] INSURANCE BILL [address] [place] [address] * EYE EXAM (11/27/2024) Anatomical Region Laterality [...] OD, 97% OS), (-2.7 OD, -3.73 OS). us Claude Ross MD OPHTHALMOLOGY SCHED ORD W PAC S Final Result * [facility] NERVE ANALYSIS OCT (11/10/2024 2:06 PM CDT) Anatomical Region Laterality Modality Head External-Camera Photography Narrative 11/10/2024 4:08 PM CDT Images from the original result were not included. Central RNFL OU: 121, 110 us Claude Ross MD OPHTHALMOLOGY SCHED ORD [...] amplification LT pending interest/medical clearance. Amari Almodovar. [facility] Clinical Utility Worker Production [facility]-Department of Otolaryngology/Aud[facility] [address] [facility] [place] [address] us Keren Fitzpatrick AUDIOLOGY SERVICES ORDERABLES F inal Result from Last 3 Months Insurance [facility] Advance Directives * Full Code (Latest Code Status on File) Date Activated Date Inactivated Comments 08/26/2024 3:26 AM 08/28/2024 7:32 PM Care Teams V Belt Builder Relationship Specialty Start Date End Date Farshad Rodriguez MD [address] [place] [address] PCP - General Family Medicine 08/26/24
== END 2025-02-02 12:14 | disposition home or self-care (01) ==
PROVIDERS: PCP Emergency Medicine; Visit Provider Internal Medicine Hematology & Oncology
DX: C34.32 Malignant neoplasm of lower lobe, left bronchus or lung (principal)
CPT/HCPCS: 78815; A9552

== ENCOUNTER 2025-04-21 13:53 | Outpatient (CLI) | payer OTHER, SELFPAY ==
--- NOTE | ~2025-04-21 | CT_ITS ---
EXAMINATION: CT diagnostic chest wo con DATE: 04/21/2025 14:07 INDICATION: Solitary lung nodule TECHNIQUE: Computed tomography (CT) of the chest was performed without intravenous contrast. Additional 3D reconstructions utilizing coronal maximum intensity projection (MIP) were performed. Automated exposure control and iterative reconstruction technique were employed. The dose-length product was 74 .63 mGy-cm. COMPARISON: CT dated 01/18/2025 and PET/CT dated 02/02/2025 FINDINGS: No interval change in a 1.3 x 1.0 cm perihilar mass in the left upper lobe. There is a region of low attenuation of fluid attenuation at the cephalad aspect of the nodule which remains suspicious for a hamartoma. No other suspicious pulmonary nodules, pneumonia, pulmonary edema or pleural effusion. Heart size is normal. Thoracic aorta is normal in caliber. No pathologically enlarged thoracic lymphadenopathy. 2 mm nonobstructing stone in upper pole calyx of the left kidney. Mild thoracic spondylosis. IMPRESSION: 1. No interval change in a 1.3 x 1.0 cm relatively low density left perihilar nodule left upper lobe which is suggestive of but not diagnostic for hamartoma. The absence of FDG uptake on prior PET scan also strongly favors a benign over malignant etiology. Could consider continued follow-up CT imaging in 6 months. If definitive determination is required the lesion does abut the apical posterior bronchus of the left upper lobe and could consider endoscopic ultrasound-guided biopsy as clinically indicated. Reviewed, dictated and finalized at location A. R THERMAL TECHNICIAN IMPRESSION: 1. No interval change in a 1.3 x 1.0 cm relatively low density left perihilar n odule left upper lobe which is suggestive of but not diagnostic for hamartoma. The absence of FDG uptake on prior PET scan also strongly favors a benign over malignant etiology. Could consider continued follow-up CT imaging in 6 months. If definitive determination is required the lesion does abut the apical posteri or bronchus of the left upper lobe and could consider endoscopic ultrasound-wilder ded biopsy as clinically indicated.
--- OUTSIDE RECORDS SUMMARY | 2025-04-21 15:00 | XMS_ITS | Encounter Summary ---
Author Organization [facility] Address [address] [place] [address] Care Team Providers Care Human Resources Director Name Role Phone Sherri Herman Primary Care Provider [phone] Farshad Rodriguez MD Primary Care Provider [phone] Encounter Details Date Type Department Care Team (Late st Contact Info) Description 12/23/2024 Vserv Message [facility] [phone] Johana Magana, ANP- [facility]. [place] [address] [place] [address] Test Results Social History Tobacco Use Types [...] Care Team (Late st Contact Info) Description 12/13/2025 1:00 PM CDT Appointment [facility] [address] [place], [place] [id number] Con Fontana MD [address] [facility] [place] [address] 03/07/2026 9:45 AM CDT Office Visit [facility] [address] [place] [address] Con Fontana MD Three [facility] [place] [address] documented as of this encounter Visit Diagnoses Not on filedocumented in this encounter Care Teams Human Resources Director Relationship Specialty Start Date End Date Sherri Herman FNP PCP - General NURSE PRACTITIONER 01/03/22 02/25/25 Farshad Rodriguez MD [address] [facility] [address] [place] [address] PCP - General 02/26/25 documented as of this encounter
--- OUTSIDE RECORDS SUMMARY | 2025-04-21 15:00 | XMS_ITS | Encounter Summary ---
Author Organization [facility] Address [address] [place] [address] Care Team Providers Care City Supervisor Name Role Phone Farshad Rodriguez MD Primary Care Provider [phone] Encounter Details Date Type Department Care Team (Late st Contact Info) Description 08/26/2024 Ophth Exam [facility] [address] [place] [phone] Hien Zaragoza MD [address] [place] [address] Social History Tobacco Use Types Packs/Day Years [...] and heating? Not hard at all 08/27/2024 [facility] [place] of Occupat ional Health - Occupational Stress [...] any time in the past [address] [facility], were you homeless or living in a fdc (including now)? No 08/27/2024 Comments No Sex and Gender Information Value Date Recorded Sex Assigned at Not on file Legal Sex Female 3:11 PM CDT Gender Identity Not on file Sexual Orientation Not on file Travel History Travel Start Travel End [place] 03/22/2025 03/26/2025 documented as of this encounter Functional Status * Functional and Cognitive Status Question Answer Date of Assessment Author Is person deaf or have sage us hearing difficulty? No 08/27/2024 3:39 PM DELT Shauna Helm RN Is person blind or have seri ous difficulty seeing? No 08/27/2024 3:39 PM DELT Shauna Helm RN Does person have serious difficulty walking/climbing stairs? No 08/27/2024 3:39 PM Shauna Upton RN Does person have difficulty dressing/bathing? No 08/27/2024 3:39 PM Shauna Upton RN Does person have difficulty doing errands alone? No 08/27/2024 3:39 PM Shauna Upton RN Does person have difficulty concentrating/remembering/making decisions? No 08/27/2024 3:39 PM Shauna Upton RN * Question Answer Date of Assessment Author Q1: How often do you have a drink containing alcohol? Monthly or less 08/27/2024 3:38 PM Shauna Upton RN Q2: How many drinks containing alcohol do you have on a typical day when you are drinking? 1 or 2 08/27/2024 3:38 PM Jessie Upton RN Q3: How often do you have six or more drinks on one occasion? Never 08/27/2024 3:38 PM Shauna Upton RN * AUDIT-C Score Answer Date of Assessment Author 1 08/27/2024 3:38 PM Shauna Upton RN documented as of this encounter Plan of Treatment Upcoming Encounters Date Type Department Care Team (Late st Contact Info) Description 04/29/2025 2:00 PM ORAL AND MAXILLOFACIAL SURGERY RESIDENT Office Visit [facility] [address] [place] [address] [place] [address] [address] [address] 06/29/2025 8:00 AM ORAL AND MAXILLOFACIAL SURGERY RESIDENT Office Visit [facility] [address] [place] [address] Adina Bowen, SOCIAL WELFARE CLERK-POWER SAW OPERATOR [address] [facility] [address] [phone] 01/07/2026 11:20 AM CDT Appointment [facility] [address] [place] [phone] Ania Lucia MD [address] [place] [address] [place] [address] 01/07/2026 1:30 PM CDT Office Visit [facility] - Nephrology [address] [place] [address], [place] [address] documented as of this encounter Visit Diagnoses Not on filedocumented in this encounter Care Teams City Supervisor Relationship Specialty Start Date End Date Farshad Rodriguez MD [address] [place] [address] PCP - General Family Medicine 08/26/24 documented as of this encounter
--- OUTSIDE RECORDS SUMMARY | 2025-04-21 15:00 | XMS_ITS | Data Portability ---
Author Organization [facility] [place] Address [address] [place] [address] [place] [address] Care Team Providers Care Make Ready Mechanic Name Role Phone PARISJUDY Primary Care Provider Assessment Encounter Date Assessment Date Assessment LastModified by Organization Details LastModified Time 08/18/2024 08/18/2024 Annual gynecological exam performed. Patient will come back in a year unless there are new symptoms. [email or web address] Not available 07/30/2024 13:00:09 Plan of Treatment Reminders Order Date Submit Date Provider Last Modified By Organization Details Last Modified Time Details Appointments None recorded. Lab pap, IG + HR HPV - HPV regardless but if HPV is positive need subtyping 16,18/[address]/gc/trich 2024 025 [facility] (Lab), [address], [place], [address], 5 11:15:40 HBsAg (hepatitis B surface Ag), serum 2024 025 [facility] (Lab), [address], [place], [address], 5 13:01:15 Referral None recorded. Procedures None recorded. Surgeries None recorded. Imaging MAMMO, screening, digital, bilateral 2024 025 [facility], [address], [place], [address], 05:00:55 Medication Orders metronidazo le 0.75 % (37.5 mg/5 gram) vaginal gel 2024 025 [email or web address] [facility] #[id number], [address], [place], [address], 10:18:03 Patient TargetsNo targets recorded. Patient InstructionsNo instructions recorded. Reason for Referral None Reported. Results Created Date Observation Date Name Description Value Unit Range Abnormal Flag Note LastModifiedBy Organization Detail LastModifiedTime 08/19/1908/18/2024 HBSAG /HCV/ HIV/R PA HIV antigen/anti body Nonrea ctive nonrea ctive HIV-1 antig en and HIV-1 /HIV- 2 antib odies were not detec jorge luis. No labor atory evide nce of HIV infec tion. Not Available [facility] (Lab) [address], [place], [address], 08/19/2024 13:01:15 08/19/1908/18/2024 HBSAG /HCV/ HIV/R PA hepatitis C antibody Non-re active non-re active Antib odies to HCV Not Detec jorge luis, does not exclu de the possi bilit y of expos ure to HCV. Not Available [facility] (Lab) [address], [place], [address], 08/19/2024 13:01:15 08/19/1908/18/2024 HBSAG /HCV/ HIV/R PA hepatitis B surface antigen Non-re active non-re active This assay was perfo rmed using [employer] ratio n reage nts and test kits. Value s obtai lilian with other assay metho ds or kits canno t be used inter jaime eably . Not Available [facility] (Lab) [address], [place], [address], 08/19/2024 13:01:15 08/19/19 25 08/18/2024 HBSAG /HCV/ HIV/R PA RPR qualitative Nonrea ctive nonrea ctive Not Available [facility] (Lab) [address], [place], [address], 08/19/2024 13:01:15 08/19/19 25 08/18/2024 IMAGE GUIDE D PAP AND HPV REGAR DLESS image guided Pap, HPV regardless of Pap result SEE RESULT S BELOW CASE REPOR T: Cytol ogy Gynec ologi zane Repor t Case: [id number] Autho alecia g Provi sherri: Dermo dy, Molly , ANP, LANDFILL GAS COLLECTION OPERATOR Colle cted: 08/18 1341 Order ing Locat [...] epith elial Guerrero zaidi or Zoey coleman (NIL) . Shift in gamal sugge stive of bacte rial vagin osis. Elect shilpi matute d by HEBERT Felder ret on 2024 at [...] as clini turner munoz nted. Not Available [facility] (Lab) [address], [place], [address], 08/22/2024 11:15:40 08/19/19 25 08/18/2024 TRICH OMONA S VAGIN GUILLE (RRNA ) trichomonas vaginalis ribosomal RNA (rrna) Negati ve negati ve Not Available [facility] (Lab) [address], [place], [address], 08/22/2024 11:15:40 08/19/1908/18/2024 CT/GC (PINA) , THINP REP VIAL chlamydia trachomatis, PCR Negati ve negati ve Not Available [facility] (Lab) [address], [place], [address], 08/22/2024 11:15:40 08/19/1908/18/2024 CT/GC (PINA) , THINP REP VIAL neisseria gonorrhoeae, PCR Negati ve negati ve Not Available [facility] (Lab) [address], [place], [address], 08/22/2024 11:15:40 Result Notes None recorded. Procedures Surgical History Date Name Laterality Status Provider Name and Address Organization Details Recorded Time 3 Date of Last Mammogram completed [facility] 08/18/2024 09:27:56 3 Date of Last Pap Smear completed [facility] 08/18/2024 09:27:56 3 Tubal Ligation completed [facility] 08/18/2024 09:27:56 Imaging Results None recorded. [...] Body mass index (BMI) Body weight Systolic And Diastolic Provider Name and Address Organization Details Last Updated DateTime 08/18/2024 162.56 cm 47 kg/m2 264137.31 g 144/98 mm[Hg] Yanira Hernandez [facility] 08/18/2024 09:39:16 Social History Question Answer Notes LastModified by Organizat ion Details LastModified Time Do You Have An Advance Directive? No [email or web address] Information n ot available 08/18/2024 How Many Years Have You Consumed Alcohol? 20 [email or web address] Information not available 08/18/2024 Are You Blind Or Do You Have Difficulty Seeing? No [email or web address] Information n ot available 08/18/2024 What Is Your Level Of Caffeine Consumption? Occasional Information not available 08/18/2024 How Much Tobacco Do You Chew? None Information not available 08/18/2024 In The 14 Days Before Symptom Onset, Have You Had Close Contact With A Laboratory-confirm ed COVID-19 While That Case Was Ill? No Information n ot available 08/18/2024 In The 14 Days Before Symptom Onset, Have You Had Close Contact With A Person Who Is Under Investigation For COVID-19 While That Person Was Ill? No [email or web address] Information not available 08/18/2024 Have You Been To An Area Known To Be High Risk For COVID-19? No [email or web address] Information not available 08/18/2024 Are You Deaf Or Do You Have Serious Difficulty Hearing? No [email or web address] Information not available 08/18/2024 What Type Of Diet Are You Following? REGULAR [email or web address] Information n ot available 08/18/2024 What Is The Highest Grade Or Level Of School You Have Completed Or The Highest Degree You Have Received? [id number] [email or web address] Information not available 08/18/2024 Are There Any Guns Present In Your Home? No [email or web address] Information not available 08/18/2024 Do You Use Protection During Sex? No [email or web address] Information not available 08/18/2024 Do You Use Your Seat Belt Or Car Seat Routinely? Yes [email or web address] Information not available 08/18/2024 Are You Sexually Active? Yes [email or web address] Information not available 08/18/2024 Do You Have Smoke And Carbon Monoxide Detectors In Your Home? Yes [email or web address] Information not available 08/18/2024 How Much Tobacco Do You Smoke? No Information not available 08/18/2024 Do You Use Sunscreen Routinely? No Information not available 08/18/2024 Have You Used IV Drugs? No [email or web address] Information not available 08/18/2024 Do You Have Difficulty Walking Or Climbing Stairs? No Information not available 08/18/2024 Sex: Unknown Functional Status Question Answer Note LastModified by Organizat ion Details LastModified Time Do you use any illicit or recreational drugs? No Information not available 08/18/2024 What is your level of alcohol consumption? Occasional [email or web address] Information not available 08/18/2024 Are you currently employed? Yes [email or web address] Information not available 08/18/2024 Are you able to walk independently without assistance or assistive devices? YESWOREST [email or web address] Information not available 08/18/2024 Are you able to care for yourself independently? 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 No [email or web address] Information not available 08/18/2024 What is your exercise level? Occasional [email or web address] Information not available 08/18/2024 Mental Status Question Answer Note LastModified by Organization D etails LastModified Time Do you feel stressed (tense, restless, nervous, or anxious, or unable to sleep at night)? [id number] [email or web address] Information not available 08/18/2024 Family History Relationship Description Onset Age of this Age Resolved Age Notes LastModified by Organization Details LastModified Time Mother Heart disease [email or web address] Not available 2024 09:27:56 Mother Diabetes mellitus [email or web address] Not available 2024 09:27:56 Brother Depressive disorder Not available 2024 09:27:56 Medical History Condition [...] Diagnosis SNOMED-CT Code Diagnosis ICD10 Code Diagnosis IMO Codes Diagnosis Note [id number] Andzrej Morales MD [place] [address] [address] 08/18/2024 09:20:42 08/18/2024 10:25:26 Gynecologic examination [id number] Z01.419 Annual gynecologi zane exam performed. Patient [...] PCP STI testing - requested Vaginal discharge 154429 006 N89.8 Discussed empirical treatment with metronidaz ole for suspected BV based on reported symptoms and physical exam findings.D iscussed vulvar care guidelines in addition to laundry/sk in irritants to avoid.Fam mmended boric acid capsules - insert one capsule vaginally at H.S. after period, intercours e, and/or with symptoms. Venereal d isease screening [id number] Z11.3 Pt requested STI testing.Di scussed the various types of STDs, related symptoms and the potential consequenc es (including effects on fertility) of STD infections . Reviewed ways to limit exposure and prevention techniques . Screening mammography 24 177753 Z12.31 Menorrhagia [id number] N9 2.0 Today we discussed multiple options [...] None Recorded Advance Directives Directive N: Payers Insurance Date Sequence Insurance Name Policy Number Policy Pitts Covered Member ID Pitts Member ID Guarantor Name 11/19/2024 1 [facility] [id number] Sylvester Ogden [id number] Sylvester Ogden Notes Date Note Type Note Provider Name and Address Organization Details Recorded Time 5 text/html Annual GYNReported by PatientGenitourinary symptomsFor menstrual cycle, patient reportsmenorrhagia. For vagina, patient reportsfoul-smelling. For urinary symptoms, patient reportsno hematuriaandno incontinence. For vulva, patient reportsno genital lesion.Breast symptomsFor breast, patient reportsno breast pain,no breast lump, andno nipple discharge.ContraceptionFo r current contraception, patient reportstubal ligation.Endocrine symptomsFor sexual complaints, patient reportsno sexual complaints,no pain during intercourse, andnormal libido. For menopausal symptoms, patient reportsno menopausal symptomsandnormal vaginal lubrication.Psychological symptomsFor psychological symptoms, patient reportsno depression,no anxiety, andno pmdd.Preventative measuresFor preventive measures, patient reportsencourage self breast examination,encourage regular exercise,encourage no tobacco use, andencourage regular mammograms starting age 40. New patient here to [facility].Patient c/o fishy vaginal odor that occurs throughout [...] PCP orders labs routinely per pt. MOLLY PURVIS NP [address], [place], [address], [place] [facility] 08/18/2024 10:24:43 OBGyn Episode Ob Episode Information Episode Created Date Number of Fetuses Patient Bloodtype Patient rh Status Prepregnancy Weight lbs Domestic Partner Domestic Partner Phone Father Name Lecturer In Marketing Status 08/19/19 25 1 CLOSED Fetus Data First Name Last Name Admitted to NICU Weight (g) Sex Living Outcome Pediatric Complications Fetus ID Race Codes Race Delivery Type Demise 44591 Destin Calculation Initial Destin Date Initial Exam [...] Domestic Partner Domestic Partner Phone Father Name Lecturer In Marketing Status 08/19/19 25 1 CLOSED Fetus Data First Name Last Name Admitted to NICU Weight (g) Sex Living Outcome Pediatric Complications Fetus ID Race Codes Race Delivery Type 3373.36 3704 M Full Term 76857 Vaginal Delivery Destin Calculation Initial Destin Date [...] Domestic Partner Domestic Partner Phone Father Name Lecturer In Marketing Status 08/19/19 25 1 CLOSED Fetus Data First Name Last Name Admitted to NICU Weight (g) Sex Living Outcome Pediatric Complications Fetus ID Race Codes Race Delivery Type 3628.73 6 M Full Term 94297 Vaginal Delivery Destin Calculation Initial Destin Date [...]
--- OUTSIDE RECORDS SUMMARY | 2025-04-21 15:00 | XMS_ITS | Encounter Summary ---
Author Organization [facility] Health Address [address] [place] [address] Care Team Providers Care Merchandise Distributor Name Role Phone Farshad Rodriguez MD Primary Care Provider [phone] Encounter Details Date Type Department Care Team (Late st Contact Info) Description 08/26/2024 Ophth Exam [facility] - [facility] [address] [facility], [place] [address] Td Barraza, DO [address] [facility] [place] [address] Social History Tobacco Use Types [...] heating? Not hard at all 08/27/2024 [facility] of Occupat ional Health - Occupational Stress [...] any time in the past 12 m [facility], were you homeless or living in a chcf (including now)? No 08/27/2024 Comments No Sex and Gender Information Value Date Recorded Sex Assigned at Not on file Legal Sex Female 3:11 PM CDT Gender Identity Not on file Sexual Orientation Not on file Travel History Travel Start Travel End [place] 03/22/2025 03/26/2025 documented as of this encounter [...] st Contact Info) Description 04/29/2025 2:00 PM GARAGE DOOR INSTALLER Office Visit [facility] [address] [place] [address] [place] [address] [address] 06/29/2025 8:00 AM GARAGE DOOR INSTALLER Office Visit [facility] [address] [place] [address] Adina Bowen, REMOTE INPATIENT CODER-MARKETING INTELLIGENCE ANALYST [address] [phone] 01/07/2026 11:20 AM CDT Appointment [facility] CAT SCAN [address] [place] [phone] Ania Lucia MD [address] [place] [address] [place] [address] 01/07/2026 1:30 PM CDT Office Visit [facility] - Nephrology [address] [place] [address], [place] [address] documented as of this encounter Visit Diagnoses Not on filedocumented in this encounter Care Teams Merchandise Distributor Relationship Specialty Start Date End Date Farshad Rodriguez MD [address] [place] [address] PCP - General Family Medicine 08/26/24 documented as of this encounter
--- OUTSIDE RECORDS SUMMARY | 2025-04-21 15:00 | XMS_ITS | Encounter Summary ---
Author Organization [facility] Health Address [address] [facility] [place] [address] Care Team Providers Care Perioperative Educator Name Role Phone Farshad Rodriugez MD Primary Care Provider [phone] Encounter Details Date Type Department Care Team (Late st Contact Info) Description 08/27/2024 Ophth Exam [facility]hthalmology [address] [place] [address] Claude Ross MD [address] [place] [address] DEPT [place] [address] Social History Tobacco Use [...] heating? Not hard at all 08/27/2024 [facility] of Occupat ional Health - Occupational Stress [...] were you homeless or living in a nursing home (including now)? No 08/27/2024 Comments No Sex and Gender Information Value Date Recorded Sex Assigned at Not on file Legal Sex Female 3:11 PM CDT Gender Identity Not on file Sexual Orientation Not on file Travel History Travel Start Travel End [place] 03/22/2025 03/26/2025 documented as of this encounter Functional Status * Functional and Cognitive Status Question Answer Date of Assessment Author Is person deaf or have sage us hearing difficulty? No 08/27/2024 3:39 PM CDT Shauna Helm RN Is person blind or have seri ous difficulty seeing? No 08/27/2024 3:39 PM CDT Shauna Helm RN Does person have serious difficulty walking/climbing stairs? No 08/27/2024 3:39 PM DELT Shauna Helm RN Does person have difficulty dressing/bathing? No 08/27/2024 3:39 PM DELT Shauna Helm RN Does person have difficulty doing errands [...] of Assessment Author No 08/27/2024 3:39 PM Shauna Upton RN * Is person blind or have serious difficulty seeing? Answer Date of Assessment Author No 08/27/2024 3:39 PM Shauna Upton RN * Does person have serious difficulty walking/climbing stairs? Answer Date of Assessment Author No 08/27/2024 3:39 PM Shauna Upton RN * Does person have difficulty dressing/bathing? Answer Date of Assessment Author No 08/27/2024 3:39 PM Shauna Upton RN * Does person have difficulty doing errands alone? Answer Date of Assessment Author No 08/27/2024 3:39 PM Shauna Upton RN documented as of this encounter Mental Status * Does person have difficulty concentrating/remembering/making decisions? Answer Entry Date Author No 08/27/2024 3:39 PM Shauna Upton RN documented in this encounter Plan of Treatment Upcoming Encounters Date Type Department Care Team (Late st Contact Info) Description 04/29/2025 2:00 PM BIOCHEMICAL DEVELOPMENT ENGINEER Office Visit [facility] [address] [facility], [address] [address] [place] [address] [facility] [address] [place] [address] 06/29/2025 8:00 AM BIOCHEMICAL DEVELOPMENT ENGINEER Office Visit [facility] Health Weight [facility] Services [address] [facility], [address] [place] [address] Adina Bowen, LAYOUT MECHANIC-FRUIT BAR MAKER [address] [facility] [address] [place] [phone] 01/07/2026 11:20 AM CDT Appointment [facility] CAT SCAN [address] [place] [address] Ania Lucia MD [facility] OF NEPHROLOGY [place], [place] [id number] 01/07/2026 1:30 PM CDT Office Visit [facility] - Nephrology [address] [facility], [place] [address] documented as of this encounter Visit Diagnoses Not on filedocumented in this encounter Care Teams Perioperative Educator Relationship Specialty Start Date End Date Farshad Rodriguez MD [address] [place] [address] PCP - General Family Medicine 08/26/24 documented as of this encounter
--- OUTSIDE RECORDS SUMMARY | 2025-04-21 15:00 | XMS_ITS | Encounter Summary ---
Author Organization [facility] Address [address] [place] [address] Care Team Providers Care Boiler Tube Reamer Name Role Phone Sherri Herman Primary Care Provider [phone] Farshad Rodriguez MD Primary Care Provider [phone] Encounter Details Date Type Department Care Team (Late Contact Info) Description 01/19/2022 Abstract [facility] THREE [facility], [address] [address] Beth Zuniga MA Social History Tobacco Use [...] Department Care Team (Late Contact Info) Description 12/13/2025 1:00 PM CDT Appointment [facility] [place] [address] Con Fontana MD [address] [facility] [place] [address] 03/07/2026 9:45 AM CDT Office Visit [facility] [address] [place] [address] Con Fontana MD [address] [facility] [place] [address] documented as of this encounter Procedures Procedure [...] HGB 11.9 HCT 35.6 PLT 288 05/31/2022 us Default History Genericprovider LAB-OUTSIDE/ABST RACTED Final Result * THYROID STIM HORMONE, TSH (05/31/2022) TSH 2.05 05/31/2022 us Default History Genericprovider LABORATORY Final Result * [...] TOTAL PROTEIN S/P/B 7.6 GLOBULIN 3.4 05/31/2022 us Default History Genericprovider LABORATORY Final Result * LIPID PANEL (05/31/2022) Pathologist [facility] CHOLESTEROL 152 HDL 36 TRIGLYCERIDES 62 NON HDL CHOLESTEROL 116 LDL (CALCULATED) 102 05/31/2022 Default History Genericprovider LABORATORY Final Result * HEMOGLOBIN, GLYCOSYLATED (01/21/2021) [facility] HGB A1C 5.6 % 01/21/2021 us Doc [facility] Abstract LABORATORY Final Result * THYROID STIM HORMONE, TSH (01/21/2021) [facility] TSH 1.31 01/21/2021 us Doc [facility] Abstract LABORATORY Final Result * CBC (OUTSIDE LAB) (01/21/2021) [facility] WBC 8.6 HGB 11.0 HCT 35.2 PLT 268 01/21/2021 us Doc [facility] Abstract LAB-OUTSIDE/ABSTRACTED Final Result * (ABNORMAL) COMPREHENSIVE METABOLIC PANEL (01/21/2021) [facility] SODIUM S/P/B 140 POTASSIUM S/P/B 3.8 CO2 [...] Final Result * FOLATE (OUTSIDE LAB) (07/02/2020) FOLATE 10.4 07/02/2020 us Doc [facility] Abstract LAB-OUTSIDE/ABSTRACTED Final Result * VITAMIN B-12 (07/02/2020) VITAMIN B12 S/P/B 914 07/02/2020 us Doc [...] on filedocumented in this encounter Care Teams Boiler Tube Reamer Relationship Specialty Start Date End Date Sherri Herman FNP PCP - General NURSE PRACTITIONER 01/03/22 02/25/25 Farshad Rodriguez MD [address] [address] PCP - General 02/26/25 documented as of this encounter
--- OUTSIDE RECORDS SUMMARY | 2025-04-21 15:01 | XMS_ITS | Clinical Summary ---
Author Organization [facility] Deven Grissom Address [address] [place] [address] Care Team Providers Care Resident Care Director Name Role Phone Unavailable Primary Care Provider Unavailabl e Allergies No known active allergies Medications acetaZOLAMIDE (DIAMOX SEQUELS) 500 mg Extended Release capsule 5 Active azelastine (ASTELIN) 137 mcg/actuation nasal spray 5 Active ferrous sulfate 325 mg (65 mg iron) tablet Take 325 mg by mouth daily at bedtime. 5 Active fluticasone propionate (FLONASE) 50 mcg/spray [place], Suspension nasal inhaler Administer 2 Sprays in each nostril daily. 5 Active potassium CITRATE (UROCIT-K) 10 mEq (1,080 mg) Extended Release tablet take 1 tablet by mouth 3 times daily with meals 5 Active Active Problems Problem Noted Date Diagnosed Date Solitary lung nodule 02/09/2025 Encounters Date Type Department Care Team Description 04/13/2025 External Device Data STL ABSTRACTION Provider, Abstract 04/07/2025 External Device Data STL ABSTRACTION Provider, Abstract 04/06/2025 External Device Data STL ABSTRACTION Provider, Abstract 03/30/2025 External Device Data STL ABSTRACTION Provider, Abstract 02/09/2025 4:00 PM CDT Telephone Check Up [facility] Oncology and Hematology [facility] [address] [place] [address] Sadaf Elizabeth MD Solitary lung nodule (Primary Dx) 02/05/2025 Orders Only [facility] On[facility] H[facility]ology [facility] [address] [place] [address] Ezekiel Hayes MD 02/03/2025 External Device Data STL ABSTRACTION Provider, Abstract 02/02/2025 External Device Data STL ABSTRACTION Provider, Abstract 02/02/2025 External Device Data STL ABSTRACTION Provider, Abstract 01/26/2025 3:00 PM CDT Office Visit [facility] Oncology and Hematology - [place] [address] [place] [address] Ezekiel Hayes MD Malignant neoplasm of lower [...] Care Team (Late st Contact Info) Description 04/28/2025 4:30 PM CONVERTING TECHNICIAN Telephone Check Up [facility] On[facility] and Hematology - [place] [address] [place] [address] Livia Moe MD [address] [place] [address] Health Maintenance Due Date Last Done Comments Pre-Diabetes and Diabetes Screening 1982 DTAP/TDAP/TD VACCINES (6 - Tdap) 1993 02/01/1988, 02/04/1987, 03/30/1983, Additional history exists HEPATITIS B VACCINES (1 of 3 - 19+ 3-dose series) 2001 HPV/Cotest (21-29) 2003 HPV VACCINES (1 - 3-dose SCD M series) 2009 HPV/Cotest (30-65) 2012 BREAST CANCER SCREENING 2022 INFLUENZA VACCINE (#1) 2025 COVID-19 Vaccine (3 - 2024-2 6 season) 2025 10/22/2020, 10/01/2020 CERVICAL CANCER SCREENING 08/19/2027 PAP SMEAR 08/19/2027 08/18/2024 Procedures Procedure Name Priority Date/Time Associated Diagnosis Comments PET BONE IMG W CT SKL BSE MID THG Routine 02/02/2025 7:48 AM CDT from Last 3 Months Results * PET BONE IMG W CT SKB MDTH (02/02/2025 7:48 AM CDT) Anatomical Region Laterality Modality Positron Emissio n Tomography (PET) Eezkiel Hayes MD PE ORDERABLES Final Result from Last 3 Months Insurance [facility] [id number]
--- OUTSIDE RECORDS SUMMARY | 2025-04-21 15:01 | XMS_ITS | Clinical Summary ---
Author Organization [facility] Address [address] [place] [address] Care Team Providers Care Automobile Service Station Attendant Name Role Phone Farshad Rodriguez MD Primary Care Provider [phone] Allergies Active Allergy Reactions Criticality Noted Date Comments Tape Rash Medium 11/27/2024 Medications azelastine (ASTELIN) 0.1 % nasal spray 1-2 sprays by Nasal route 2 (two) times daily. 11/05/2024 Active fluticasone propionate (FLONASE) 50 MCG/ACT nasal spray 1 spray by Each Nostril route daily. 11/05/2024 Active potassium citrate CR (UROCIT-K) 10 MEQ (1080 MG) tablet Take 1 tablet (10 mEq total) by mouth 3 (three) times daily with meals. 11/13/2024 Active ferrous sulfate, 65 mg elemental, 325 (65 FE) MG tablet Take 1 tablet (325 mg total) by mouth daily with breakfast. 11/13/2024 Active vitamin D2, ergocalciferol, (DRISDOL) 1.25 mg capsule Take 1 capsule (1.25 mg total) by mouth once a week. 07/13/2024 Active traZODone (DESYREL) 100 MG tablet Take 1 tablet (100 mg total) by mouth nightly as needed for Sleep. Active Azelastine-Flut icasone 137-50 MCG/ACT Suspension Active acetaZOLAMIDE ER (DIAMOX) 500 MG 12 hr capsule Take 1 capsule (500 mg total) by mouth 2 (two) times daily. 03/01/2025 Active Active Problems Problem Noted Date Diagnosed Date Obesity, Class III, BMI 40-49.9 (morbid obesity) 05/02/2022 Chronic diastolic heart failure 05/02/2022 Dyslipidemia 05/02/2022 Chiari malformation type I 10/05/2018 Encounters Date Type Department Care Team Description 03/01/2025 12:30 PM CDT Office Visit [facility] [facility] [address] [place] [address] Con Fontana MD Lipids (3mo) 03/01/2025 Orders Only [facility] [address], [facility] [place] [address] Con Fontana MD 03/01/2025 Travel from Last 3 Months Immunizations Immunization Administration Dates Next Due Dtp (Generic) 02/01/1988, 7,03/30/1983,1982,1982 Influenza (Generic) 03/22/2014 MMR (MMRII) 12/09/1992,04/29/1984 PFIZER COVID-19 (ORIGINAL FORMULATION, PURPLE CAP) mRNA, LNP-S, PF, 30 MCG/0.3 ML DOSE 10/22/2020,10/01/2020 Polio Opv (Generic) 02/01/1988, 7,03/30/1983,1982,1982 Family History Medical History Relation Comments [place] Father Aneurysm Maternal Grandfather Stroke Maternal Grandmother [...] Sign Reading Time Taken Comments Blood Pressure 98/60 03/01/2025 12:55 PM CDT Pulse 72 03/01/2025 12:55 PM CDT Temperature - - Respiratory Rate - - Oxygen Saturation 99% 03/01/2025 12: 55 PM CDT Inhaled Oxygen Concentration - - Weight 104.7 kg (230 lb 12.8 oz) 2024 12:55 PM CDT Height 162.6 cm (5' 4) 03/01/2025 12:5 5 PM CDT Body Mass Index 39.62 03/01/2025 12:55 PM CDT Plan of Treatment Upcoming Encounters Date Type Department Care Team (Late st Contact Info) Description 12/13/2025 1:00 PM CDT Appointment [facility] Non [place] [address] Con Fontana MD [facility] [address] [place] [address] 03/07/2026 9:45 AM CDT Office Visit [facility] [address] [place] [address] Con Fontana MD [facility] [address] [place] [address] Health Maintenance Due Date Last Done Comments [...] Screening 2022 COVID-19 Vaccine (3 - season) 2025 10/22/2020, 10/01/2020 Influenza Adult (#1) 2025 03/22/2014 Cervical Cancer Screening Pap Smear (Age 30 to 64) Every 3 Years 08/19/2027 08/18/2024, 08/18/2024, 08/18/2024 Cervical Cancer Screening Pap with HPV Testing (Age 30 to 64) Every 5 Years 08/18/2029 08/18/2024 Cervical Cancer Screening with HPV 08/18/2029 Hepatitis A Vaccines Aged Out No long er eligible based on patient's age to complete this topic Meningococcal B Vaccine Aged Out No l onger eligible based on patient's age to complete this topic Meningococcal Vaccine Aged Out No katia vandana eligible based on patient's age to complete this topic RSV Immunizations Under 20 Months Aged Out No longer eligible based on patient's age to complete this topic Insurance Care Teams Automobile Service Station Attendant Relationship Specialty Start Date End Date Farshad Rodriguez MD [address] [place] [id number] PCP - General 02/26/25
--- OUTSIDE RECORDS SUMMARY | 2025-04-21 15:01 | XMS_ITS | Encounter Summary ---
Author Organization [facility] Address [address] [facility] [place] [address] Care Team Providers Care Cabinet Abrasive Sandblaster Name Role Phone Farshad Rodriguez MD Primary Care Provider [phone] Encounter Details Date Type Department Care Team (Late Contact Info) Description 03/15/2025 Results Follow-Up [facility] [id number] [place] [address] [place] [address] [address] Social History Tobacco Use Types [...] Recorded Patient Health Questionnaire-2 Score 0 09/17/2024 [facility] [place] [facility] - Occupational Stress [...] any time in the past 12 m [facility], were you homeless or living in a fdc (including now)? No 08/27/2024 Comments No Sex and Gender Information Value Date Recorded Sex Assigned at Not on file Legal Sex Female 3:11 PM CDT Gender Identity Not on file Sexual Orientation Not on file Travel History Travel Start Travel End [place] 03/22/2025 03/26/2025 documented as of this encounter [...] st Contact Info) Description 04/29/2025 2:00 PM NURSING UNIT MANAGER Office Visit [facility] [address] [place] [address] [place] [address] [address] 06/29/2025 8:00 AM NURSING UNIT MANAGER Office Visit [facility] [address] [place] [address] Adina Bowen, FIBERGLASS CONTAINER WINDING OPERATOR-VERSE WRITER [address] [phone] 01/07/2026 11:20 AM CDT Appointment [facility] [address] [place] [phone] Ania Lucia MD [facility] [place] [address] 01/07/2026 1:30 PM CDT Office Visit [facility] - Nephrology [address] [facility], [place] [phone] documented as of this encounter Visit Diagnoses Not on filedocumented in this encounter Care Teams Cabinet Abrasive Sandblaster Relationship Specialty Start Date End Date Farshad Rodriguez MD [address] [facility] [address] [place] [address] PCP - General Family Medicine 08/26/24 documented as of this encounter
--- OUTSIDE RECORDS SUMMARY | 2025-04-21 15:01 | XMS_ITS | Clinical Summary ---
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 Encounters Date Type Department Care Team Description 02/04/2025 12:50 PM CDT Imaging Exam [facility] Medicine Ophthalmology [address] [place] [phone] Papilledema 02/04/2025 12:45 PM CDT Office Visit [facility] Medicine Ophthalmology [address] [place] [phone] Malick Rogers MD Unspecified disorder of visual pathways (Primary Dx); IIH (idiopathic intracranial hypertension); Migraine without aura and without status migrainosus, not intractable 02/04/2025 11:20 AM CDT Imaging Exam [facility] [address] [place] [phone] Unspecified disorder of visual pathways 02/02/2025 Orders Only [facility] Medicine Ophthalmology [address] [place] [phone] Malick Rogers MD Papilledema (Primary Dx) from Last 3 Months Surgical History Surgery Date Site/Laterality Comments PA OCCLUSION FLP TUBE DEV VAG/SUPRAPUBIC APPR Oviductal [...] you have a drink containing alc ohol? Never 02/04/2025 Average Number of Drinks Not on file 025 Frequency of Binge Drinking Not on file 01/09 Comments Unknown Sex and Gender Information Value [...] - 3-dose SCDM series) 2009 Covid-19 Vaccine (3 - season) 2025 10/22/2020, 10/01/2020 Influenza Vaccine (#1) 2025 03/22/2014 Pneumococcal vaccine <65 Aged Out No longer eligible based on patient's age to complete this topic Procedures Procedure Name Priority Date/Time Associated Diagnosis Comments SINGH VISUAL FIELD - OU - BOTH EYES Routine 02/04/2025 12:07 PM CDT Papilledema OCT, RETINA - OU - BOTH EYES Routine 02/04/2025 11:41 AM CDT Unspecified disorder of visual pathways OCT, OPTIC NERVE - OU - BOTH EYES Routine 02/04/2025 11:41 AM CDT Unspecified disorder of visual pathways from Last 3 Months Results * Singh Visual Field - OU - Both Eyes (02/04/2025 12:07 PM CDT) Pattern Deviation OS 2.30 dB CONTINUUM Pattern Deviation OD 1.88 dB CONTINUUM Mean Deviation OS -3.30 dB CONTINUUM Mean Deviation OD -2.18 dB CONTINUUM Anatomical Region Laterality Modality Head Other Narrative 02/04/2025 1:04 PM CDT Right Eye Fixation was good. Cooperation was good. Reliability was good. Progression has been stable. Foveal threshold was normal. Findings include non-specific defects. Mean Deviation was -2.18 dB. Pattern Deviation was 1.88 dB. Left Eye Fixation was good. Cooperation was good. Reliability was good. Progression has been stable. Foveal threshold was normal. Findings include non-specific defects. Mean Deviation was -3.30 dB. Pattern Deviation was 2.30 dB. Malick Rogers MD OPH VISUAL FIELD F inal Result * OCT, Retina - OU - Both Eyes (02/04/2025 11:41 AM CDT) Central Macular Thickness OS 226 mircometers CONTINUUM Central Macular Thickness OD 232 micrometers CONTINUUM Anatomical Region Laterality Modality Head Other Narrative 02/04/2025 1:05 PM CDT Right Eye Quality was good. Scan locations included subfoveal. Progression has been stable. Findings include normal foveal contour. Macular thickness was 232 micrometers. Left Eye Quality was good. Scan locations included subfoveal. Progression has been stable. Findings include normal foveal contour. Macular thickness was 226 mircometers. Notes GCL OD: 86 OS: 78 Normal macular and ganglion cell layer (GCL) thickness both eyes (OU). Stable both eyes (OU). Malick Rogers MD OPHTH TOMOGRAPHY Fin al Result * OCT, Optic Nerve - OU - Both Eyes (02/04/2025 11:41 AM CDT) RNFL OS 81 micrometers CONTINUUM RNFL OD 109 micrometers CONTINUUM Anatomical Region Laterality Modality Head Other Narrative 02/04/2025 1:04 PM CDT Right Eye Reliability was good. Average RNFL thickness 109 micrometers. Left Eye Reliability was good. Average RNFL thickness 81 micrometers. Notes Normal retinal nerve fiber layer thickness OU. Stable both eyes (OU). Malick Rogers MD OPHTH TOMOGRAPHY Fin al Result from Last 3 Months Insurance [facility]/PPO Address: [address] [place], [place] [address] [facility]/PPO Address: [address] [place] [address] [facility] [employer] [facility]/PPO Address: [address] [place] [address] Care Teams Medical Transcription Relationship Specialty Start Date End Date Farshad Rodriguez MD [address] [place] [address] PCP - General Emergency Medicine 09/14/24 Sherri Herman NP 10/04/17
--- OUTSIDE RECORDS SUMMARY | 2025-04-21 15:01 | XMS_ITS | Clinical Summary ---
Author Organization [facility] Address [address] [place] [address] Care Team Providers Care Faculty Research Physician Name Role Phone Farshad Rodriguez MD Primary Care Provider [phone] Source Comments [facility],non-owned Affiliates and Associated Physician Practices is amultiple site organization consisting of ambulatory clinics and hospital sitesin [place], [place], [place] and [place]. This disclosure is being madepursuant to the Care Everywhere program and may not contain all information available regarding this patient. Last updated 18.[facility] Allergies Active Allergy Reactions Criticality Noted Date Comments Skin Adhesives Rash Medium 10/16/2024 Medications * Be aware that medications may not be up to date on this document. Alwaysverify current medications with the patient. ondansetron, disintegratin g, (Zofran ODT) 4 MG tablet Take 1 (one) tablet by mouth every 6 hours as needed for Nausea/Vomiting Allow tablet to dissolve on the tongue 5 tablet 10/17/19 25 Active acetaminophen (Tylenol) 500 MG tablet Take 1 (one) tablet by mouth every 4 hours as needed for Fever or Pain Maximum allowable Acetaminophen amount = 4 Grams (4000 mg) / 24 hours. 30 tablet 10/17/19 25 Active azelastine (Astelin) 0.1 % nasal spray Morrison 1 (one) spray to 2 (two) sprays into each nostril 2 times daily 90 mL 5 11/06/19 25 Active ferrous sulfate 325 (65 FE) MG tablet Take 1 (one) tablet by mouth at bedtime 90 tablet 3 11/14/19 25 Active traZODone (Desyrel) 100 MG tablet Take 1 (one) tablet by mouth once daily as needed Active fluticasone propionate (Flonase) 50 MCG/ACT nasal spray SPRAY 2 SPRAYS INTO EACH NOSTRIL EVERY DAY 48 g 1 02/02/20 25 Active tirzepatide (Zepbound) 2.5 MG/0.5ML injectionIndi cations:Obesi ty Inject 2.5 (two and one-half) mg subcutaneously every 7 days (once a week) Reasons: Obesity 2 mL 03/29/20 Active acetaZOLAMIDE ER 12hr (Diamox Sequel) 500 MG capsuleIndica tions:Kidney stone Take 1 (one) capsule by mouth 2 times daily 180 capsule 3 04/09/20 25 2025 Active potassium citrate ER 15 MEQ (1620 MG) tablet Take 1 (one) tablet by mouth 2 times daily 180 tablet 4 04/09/20 25 Active Vitamin D3 (Cholecalcife rol) 50 MCG (2000 UT) capsule Take 1 (one) capsule by mouth once daily 100 capsule 4 04/09/20 25 Active acetaZOLAMIDE ER 12hr (Diamox Sequel) 500 MG capsule Take 2 (two) capsules by mouth 2 times daily for 7 days, THEN 3 (three) capsules 2 times daily for 7 days, THEN 3 (three) capsules 2 times daily for 7 days, THEN 4 (four) capsules 2 times daily for 7 days, THEN 4 (four) capsules 2 times daily. 340 capsule 4 08/29/19 25 2024 Discontinued potassium citrate (Urocit K 10) 10 MEQ (1080 MG) tablet Take 1 (one) tablet by mouth 3 times daily with meals 60 tablet 11 11/14/19 25 2024 Discontinued Active Problems Problem Noted Date Diagnosed Date Liver problem 04/07/2025 Kidney stones 11/13/2024 Overview (04/09/2025): CT Scan on 10/16/24 she was found to have a 4 mm stone in the inferior pole of Lt kidney, and a possible 2 mm stone in Rt ureter. Risk Factors: Very low urine Citrate, slightly high Oxalate. 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 10/23/2017 Vitamin D deficiency Encounters Date Type Department Care Team Description 04/09/2025 11:30 AM CDT Office Visit [facility] - Nephrology [address] [place] [phone] Ania Lucia MD Kidney stones (Primary Dx); Dyslipidemia; Vitamin D deficiency 04/09/2025 Travel 04/07/2025 12:00 PM CDT Office Visit [facility] RAD CSM [address] [place] [phone] Rolan Navarro MD Liver lesion (Primary Dx) 04/07/2025 Travel 03/29/2025 8:15 AM CDT Office Visit [facility] Health Weight Management Services [address] [place] [address], [address] [place] [address] Adina Bowen, RIP/MOULD OPERATOR-INHALATION THERAPIST Class 3 severe obesity with body mass index (BMI) of 40.0 to 44.9 in adult, unspecified obesity type, unspecified whether serious comorbidity present (HCC) (Primary Dx); Dyslipidemia; Pre-diabetes; Vitamin D deficiency 03/29/2025 Orders Only [facility] - Nephrology [address] [place] [phone] Eve Downey RN Vitamin D deficiency ; Kidney stones; Hyperuricemia; Chronic kidney disease-mineral and bone disorder 03/26/2025 2:55 PM CDT - 03/26/2025 11:59 PM CDT Hospital Encounter [facility] Discharge Disposition: Home or Self Care 03/15/2025 Results Follow-Up [facility] Health Weight Management Services [id number] [place] [address], [address] [place] [address] Kathy Cortes MD 03/02/2025 8:00 PM CDT - 03/02/2025 11:59 PM CDT Hospital Encounter [facility] Health Sleep Services - Home Sleep Study [address] [place] [address] Kathy Cortes MD Salamat, Nikhat, MD Discharge Disposition: Home or Self Care 02/25/2025 2:15 PM CDT Office Visit [facility] Health Weight Management Services [address] [place] [address], [address] [address] Adina Bowen, RIP/MOULD OPERATOR-INHALATION THERAPIST Class 3 severe obesity with body mass index (BMI) of 40.0 to 44.9 in adult, unspecified obesity type, unspecified whether serious comorbidity present (HCC) (Primary Dx); Pre-diabetes; Snoring; Dyslipidemia; Insulin resistance 02/11/2025 2:45 PM CDT - 02/11/2025 11:59 PM CDT Hospital Encounter [facility] Health Weight Management Services [address] [place] [address], [address] [address] Kathy Cortes MD Discharge Disposition: Home or Self Care 02/05/2025 Orders Only [facility] Health Weight Management Services [address] [place] [address], [address] [address] Kathy Cortes MD Morbid obesity (HCC) ; Dietary counseling and surveillance 02/03/2025 4:30 PM CDT Video Visit [facility] Health Weight Management Services [address] [place] [address], [address] [address] Morbid obesity (HCC) 01/31/2025 Refill [facility] - ENT [address] [place] [phone] Emiliano Boyce MD Refill Request 01/29/2025 Orders Only [facility] Health Weight Management Services [address] [place] [address], [address] [address] Kathy Cortes MD Snoring 01/27/2025 4:30 PM CDT Video Visit [facility] Health Weight Management Services [address] [place] [address], [address] [address] Morbid obesity (HCC) 01/21/2025 Results Follow-Up [facility] Health Weight Management Services [address] [facility], [address] [place] [address] Kathy Cortes MD 01/20/2025 1:30 PM CDT Video Visit [facility] - Neurology [address] [facility] [place] [phone] Ora Webb APRN-LAURA Intractable episodic tension-type headache from Last 3 Months Immunizations Immunization Administration [...] Recorded Patient Health Questionnaire-2 Score 0 09/17/2024 [facility] [place] of Occupat ional Health - Occupational Stress [...] file Travel History Travel Start Travel End Raymond 03/22/2025 03/26/2025 Last Filed Vital Signs Vital Sign Reading Time Taken Comments Blood Pressure 135/83 04/09/2025 11:45 AM CDT Pulse 77 04/09/2025 11:45 AM CDT Temperature 37 C (98.6 F) 04/09/2025 11:45 AM CDT Respiratory Rate 16 04/07/2025 12:31 PM CDT Oxygen Saturation 100% 04/09/2025 11:45 AM CDT Inhaled Oxygen Concentration - - Weight 103.4 kg (228 lb) 04/09/2025 11:45 AM CDT Height 160 cm (5' 2.99) 04/07/2025 12:31 PM CDT Body Mass Index 40.4 04/07/2025 12:31 PM CDT Plan of Treatment Upcoming Encounters Date Type Department Care Team (Late st Contact Info) Description 04/29/2025 2:00 PM OPTICAL DISPENSER Office Visit [facility] Health Weight Management Services [address] [facility], [address] [place] [address] [place] [address] [place], [place] [phone] 06/29/2025 8:00 AM OPTICAL DISPENSER Office Visit [facility] Health Weight Management Services [address] [facility], [address] [place] [address] Adina Bowen, RIP/MOULD OPERATOR-INHALATION THERAPIST [address] [place] [phone] 01/07/2026 11:20 AM CDT Appointment [facility] CAT SCAN [address] [place] [phone] Ania Lucia MD [address] OF NEPHROLOGY [place], [place] [phone] 01/07/2026 1:30 PM CDT Office Visit [facility] - Nephrology [address] [facility] [place] [phone] Health Maintenance Due Date Last Done Comments MAMMOGRAM 1982 DTAP/TDAP/TD VACCINES (6 - Tdap) 1993 02/01/1988, 02/04/1987, 03/30/1983, Additional history exists HEPATITIS C SCREENING 03/23/2000 HEPATITIS B VACCINE (1 of 3 - 19+ 3-dose series) 2001 PNEUMOCOCCAL VACCINE (1 of 2 - PCV) 2001 HPV VACCINE (1 - 3-dose SCDM series) 2009 COVID-19 VACCINE ( - 2024- season) 2025 10/22/2020, 10/01/2020 INFLUENZA VACCINE (#1) 2025 03/22/2014 PAP SMEAR 08/19/2027 08/18/2024, 08/18/2024 SCREENING FOR DIABETES 03/31/2028 , 01/20/2025, 10/16/2024, Additional history exists LIPID TESTING 03/31/2030 03/31/2025 ZOSTER VACCINE (1 of 2) 2032 HIV [...] on patient's age to complete this topic Goals Goal Patient Goal Type Associated Problems Recent Progress Patient-Stated? Author Blood Pressure < 140/90 Blood Pressure 135/83(2024 11:45 AM CDT) No Eve Downey, principal trainer Management General On track( 11:55 AM CDT) No Neri Torres RN Note: Expected end date: Interventions: Take all medications as prescribed Let your doctor know right away about any changes in your medications Make sure to request a refill of your medication at least one week prior to your last dose Procedures Procedure Name Priority Date/Time Associated Diagnosis Comments VITAMIN D 25-HYDROXY Routine 03/31/2025 1:24 PM CDT Vitamin D deficiency Kidney stones Chronic kidney disease-mineral and bone disorder URINALYSIS NO MICROSCOPIC NO CULTURE Routine 03/31/2025 1:24 PM CDT Kidney stones Chronic kidney disease-mineral and bone disorder URIC ACID BLOOD Routine 03/31/2025 1:24 PM CDT Kidney stones Hyperuricemia Chronic kidney disease-mineral and bone disorder PTH INTACT Routine 03/31/2025 1:24 PM CDT Kidney stones Chronic kidney disease-mineral and bone disorder PROTEIN CREATININE RATIO URINE RANDOM PNL Routine 03/31/2025 1:24 PM CDT Kidney stones Chronic kidney disease-mineral and bone disorder PHOSPHORUS BLOOD Routine 03/31/2025 1:24 PM CDT Kidney stones Chronic kidney disease-mineral and bone disorder OSMOLALITY URINE Routine 03/31/2025 1:24 PM CDT Kidney stones Chronic kidney disease-mineral and bone disorder LIPID PROFILE Routine 03/31/2025 1:24 PM CDT Kidney stones Chronic kidney disease-mineral and bone disorder MAGNESIUM BLOOD Routine 03/31/2025 1:24 PM CDT Kidney stones Chronic kidney disease-mineral and bone disorder COMPREHENSIVE METABOLIC PANEL Routine 03/31/2025 1:24 PM CDT Kidney stones Chronic kidney disease-mineral and bone disorder CBC W AUTO DIFFERENTIAL Routine 03/31/2025 1:24 PM CDT Kidney stones Chronic kidney disease-mineral and bone disorder HOME SLEEP STUDY Routine 03/02/2025 11:5 9 PM CDT Snoring EYE EXAM 02/04/2025 INSULIN LEVEL FASTING Routine 01/20/2025 8:32 AM CDT Class 3 severe obesity with body mass index (BMI) of 40.0 to 44.9 in adult, unspecified obesity type, unspecified whether serious comorbidity present (HCC) Pre-diabetes VITAMIN D 25-HYDROXY Routine 01/20/2025 8:32 AM CDT Vitamin D deficiency HEMOGLOBIN A1C Routine 01/20/2025 8:32 AM CDT Pre-diabetes from Last 3 Months Results * URIC ACID BLOOD (03/31/2025 1:24 PM CDT) Pathologist [facility] Uric Acid 5.2 2.5 - 7.0 mg/dL [facility] Comment: Therapeutic target for gout patients: <6.0 mg/dL Test Performed at: [facility] [address] ARIANNE AARON MD Blood BLOOD SPECIMEN / Unknown 03/31/2025 1:24 PM CDT 03/31/2025 1:25 PM CDT Ania Lucia MD LAB - CHEMISTRY ORDERABLES Eileen l Result Performing Organization Address [facility]/ZIP Co de Phone Number [address] [address] * (ABNORMAL) URINALYSIS NO MICROSCOPIC NO CULTURE (03/31/2025 1:24 PM CDT) Color UA YELLOW YELLOW [facility] Appearance CLEAR CLEAR [facility] Specific [place] UA 1.006 1.001 - 1.035 [facility] pH UA 7.5 5.0 - 8.0 [facility] Glucose UA NEGATIVE NEGATIVE [facility] Bilirubin UA NEGATIVE NEGATIVE [facility] Ketone UA NEGATIVE NEGATIVE [facility] Blood UA TRACE(A) NEGATIVE [facility] Protein UA NEGATIVE NEGATIVE [facility] Nitrite UA NEGATIVE NEGATIVE [facility] Leukocyte UA 1+(A) NEGATIVE [facility] Comment: Test Performed at: [facility] [address] ARIANNE AARON MD Urine URINE SPECIMEN OBTAINED BY CLEAN CATCH PROCEDURE / Unknown 03/31/2025 1:24 PM CDT 03/31/2025 1:25 PM CDT Ania Lucia MD LAB - URINALYSIS ORDERABLES Frederic al Result Performing Organization Address [facility]/ZIP Co de Phone Number [address] [address] * PTH INTACT (03/31/2025 1:24 PM CDT) PTH Intact 53 16 - 77 pg/mL [facility] Comment: Interpretive Guide Intact PTH Calcium ------- Normal Parathyroid Normal Normal Hypoparathyroidism Low or Low Normal Low Hyperparathyroidism Primary Normal or High High Secondary High Normal or Low Tertiary High High Non-Parathyroid Hypercalcemia Low or Low Normal High Test Performed at: [facility] [place] [address] [place] [address] ARIANNE AARON MD Blood BLOOD SPECIMEN / Unknown 03/31/2025 1:24 PM CDT 03/31/2025 1:25 PM CDT Ania Lucia MD LAB - CHEMISTRY ORDERABLES Eileen l Result Performing Organization Address [facility] de Phone Number [facility] [address] [place] [address] * (ABNORMAL) VITAMIN D 25-HYDROXY (03/31/2025 1:24 PM CDT) Only the most recent of2 resultswithin the time period is included. Pathologist [facility] Vitamin D, 25 Hydroxy 28(L) 30 - 100 ng/mL [facility] Comment: Vitamin D Status 25-OH Vitamin D: Deficiency: <20 ng/mL Insufficiency: 20 - 29 ng/mL Optimal: > or = 30 ng/mL For 25-OH Vitamin D testing on patients on D2-supplementation and patients for whom quantitation of D2 and D3 fractions is required, the QuestAssureD(TM) 25-OH VIT D, (D2,D3), LC/MS/MS is recommended: order code 91626 (patients >2yrs). See Note 1 Note 1 For additional information, please refer to http://education.NotesFirst/faq/USI600 (This link is being provided for informational/ educational purposes only.) Test Performed at: [facility] [address] [place] [phone] ARIANNE AARON MD Blood BLOOD SPECIMEN / Unknown 03/31/2025 1:24 PM CDT 03/31/2025 1:25 PM CDT Ania Lucia MD LAB - CHEMISTRY ORDERABLES Eileen l Result Performing Organization Address [facility] Co de Phone Number [facility] [address] [place] [address] * (ABNORMAL) CBC WITH DIFFERENTIAL (03/31/2025 1:24 PM CDT) Pathologist [facility] White Blood Cell Count 6.6 3.8 - 10.8 Thousand/ uL [facility] RBC 4.27 3.80 - 5.10 Million/u L [facility] Hemoglobin 11.5(L) 11.7 - 15.5 g/dL [facility] Hematocrit 38.1 35.0 - 45.0 % [facility] MCV 89.2 80.0 - 100.0 fL [facility] MCH 26.9(L) 27.0 - 33.0 pg [facility] MCHC 30.2(L) 32.0 - 36.0 g/dL [facility] Comment: For adults, a slight decrease in the calculated MCHC value (in the range of 30 to 32 g/dL) is most likely not clinically significant; however, it should be interpreted with caution in correlation with other red cell parameters and the patient's clinical condition. RDW 14.6 11.0 - 15.0 % [facility] Platelet Count 286 140 - 400 Thousand/ uL [facility] MPV 10.1 7.5 - 12.5 fL [facility] Neutrophil Absolute 3531 1500 - 7800 cells/uL [facility] Lymphocytes Absolute 2251 850 - 3900 cells/uL [facility] Absolute Monocytes 647 200 - 950 cells/uL [facility] Eosinophils Absolute 139 15 - 500 cells/uL [facility] Basophils Absolute 33 0 - 200 cells/uL [facility] Granulocytes % 53.5 % [facility] Lymphocytes % 34.1 % [facility] Monocytes % 9.8 % [facility] Eosinophils % 2.1 % [facility] Basophils % 0.5 % [facility] Comment: Test Performed at: [facility] [address] ARIANNE AARON MD Blood BLOOD SPECIMEN / Unknown 03/31/2025 1:24 PM CDT 03/31/2025 1:25 PM CDT Ania Lucia MD LAB - HEMATOLOGY ORDERABLES Fin al Result [address] [address] * COMPREHENSIVE METABOLIC PANEL (03/31/2025 1:24 PM CDT) Pathologist [facility] Glucose 66 65 - 139 mg/dL [facility] Comment: Non-fasting reference interval BUN 10 7 - 25 mg/dL [facility] Creatinine 0.62 0.50 - 0.99 mg/dL [facility] eGFR by Cystatin C 113 > OR = 60 mL/min/1. 73m2 [facility] BUN/Creatinine Ratio SEE NOTE: (calc) [facility] Comment: Not Reported: BUN and Creatinine are within reference range. Sodium 137 135 - 146 mmol/L [facility] Potassium 3.5 3.5 - 5.3 mmol/L [facility] Chloride 110 98 - 110 mmol/L [facility] CO2 24 20 - 32 mmol/L [facility] Calcium 8.8 8.6 - 10.2 mg/dL [facility] Protein Total 7.3 6.1 - 8.1 g/dL [facility] Albumin 4.1 3.6 - 5.1 g/dL [facility] Globulin Total 3.2 1.9 - 3.7 g/dL (calc) [facility] Albumin/Globulin Ratio 1.3 1.0 - 2.5 (calc) [facility] Bilirubin Total 0.2 0.2 - 1.2 mg/dL [facility] Alkaline Phosphatase 65 31 - 125 U/L [facility] AST 12 10 - 30 U/L [facility] ALT 11 6 - 29 U/L [facility] Comment: Test Performed at: [facility] [address] ARIANNE AARON MD Blood BLOOD SPECIMEN / Unknown 03/31/2025 1:24 PM CDT 03/31/2025 1:25 PM CDT Ania Lucia MD LAB - CHEMISTRY ORDERABLES Eileen l Result Performing Organization Address [facility] Co de Phone Number [address] [address] * (ABNORMAL) PROTEIN CREATININE RATIO URINE RANDOM PNL (03/31/2025 1:24 PM CDT) Creatinine Urine 39 20 - 275 mg/dL [facility] Protein/Creatinine Ratio 103 24 - 184 mg/g creat [facility] Protein/Creatinine Ratio 0.103 0.024 - 0.184 mg/mg creat [facility] Protein Random Urine 4(L) 5 - 24 mg/dL [facility] Comment: REPORT COMMENT: FASTING:NO Test Performed at: [facility] [address] ARIANNE AARON MD Urine URINE SPECIMEN OBTAINED BY CLEAN CATCH PROCEDURE / Unknown 03/31/2025 1:24 PM CDT 03/31/2025 1:25 PM CDT us Ania Lucia MD LAB - URINE CHEMISTRY ORDERABLE S Final Result Performing Organization Address [facility] Co de Phone Number [address] [address] * PHOSPHORUS BLOOD (03/31/2025 1:24 PM CDT) Phosphorus 3.4 2.5 - 4.5 mg/dL [facility] Comment: Test Performed at: [facility] [address] ARIANNE AARON MD Blood BLOOD SPECIMEN / Unknown 03/31/2025 1:24 PM CDT 03/31/2025 1:25 PM CDT us Ania Lucia MD LAB - CHEMISTRY ORDERABLES Eileen l Result Performing Organization Address City/[facility]/ZIP Co de Phone Number [address] [address] * OSMOLALITY URINE (03/31/2025 1:24 PM CDT) Pathologist [facility] Osmolality Urine 222 50 - 1200 mOsm/kg [facility] Comment: Test Performed at: [facility] [address] [address] ARIANNE AARON MD Urine URINE SPECIMEN OBTAINED BY CLEAN CATCH PROCEDURE / Unknown 03/31/2025 1:24 PM CDT 03/31/2025 1:25 PM CDT us Ania Lucia MD LAB - URINE CHEMISTRY ORDERABLE S Final Result Performing Organization Address [facility] Co de Phone Number [address] [address] * MAGNESIUM BLOOD (03/31/2025 1:24 PM CDT) Pathologist [facility] Magnesium 1.9 1.5 - 2.5 mg/dL [facility] Comment: Test Performed at: [facility] [address] ARIANNE AARON MD Blood BLOOD SPECIMEN / Unknown 03/31/2025 1:24 PM CDT 03/31/2025 1:25 PM CDT us Ania Lucia MD LAB - CHEMISTRY ORDERABLES Eileen l Result Performing Organization Address City/[facility]/ZIP Co de Phone Number [address] [address] * (ABNORMAL) LIPID PROFILE (03/31/2025 1:24 PM CDT) Cholesterol 163 <200 mg/dL [facility] HDL Cholesterol 34(L) > OR = 50 mg/dL [facility] Triglycerides 69 <150 mg/dL [facility] LDL Calculated 113(H) mg/dL (calc) [facility] Comment: Reference range: <100 Desirable range <100 mg/dL for primary prevention; <70 mg/dL for patients with CHD or diabetic patients with > or = 2 CHD risk factors. LDL-C is now calculated using the Thor-Boyce calculation, which is a validated novel method providing better accuracy than the Friedewald equation in the estimation of LDL-C. Thor SS et al. NELL. 2013;310(24): 3208-5377 (http://education.PresenterNet.Reading Rainbow/faq/SZO256) CHOL/HDLC RATIO 4.8 <5.0 (calc) [facility] Non HDL Cholesterol 129 <130 mg/dL (calc) [facility] Comment: For patients with diabetes plus 1 major ASCVD risk factor, treating to a non-HDL-C goal of <100 mg/dL (LDL-C of <70 mg/dL) is considered a therapeutic option. Test Performed at: [facility] [address] ARIANNE AARON MD Blood BLOOD SPECIMEN / Unknown 03/31/2025 1:24 PM CDT 03/31/2025 1:25 PM CDT Ania Lucia MD LAB - CHEMISTRY ORDERABLES Eileen aguilar Result [address] [address] * Home Sleep Apnea Test (Home Sleep Study) [id number] (03/02/2025 11:59 PM CDT) Narrative Marin Arzola MD - 03/02/2025 11:59 PM CDT Marin Arzola MD 03/11/2025 4:39 PM HOME SLEEP APNEA TEST Patient Name: Sylvester Ogden Patient : 1980 Date of Study: 03/02/2025 Ordering Provider: Kathy Cortes MD Interpreting Physician: Marin Arzola MD PATIENT INFORMATION: This 44-year-old Female was referred for a type 3 portable sleep study. The patient's current sleep complaints include fatigued, sleepy, insomnia, wake up gasping/choking, snoring. Height was 64.0 in and weight was 227.0 lb, which represented a BMI of 38.96. Patient has an Boaz score of 9/24. The patient has a STOP score of 2 and a BANG score of 1. The patients past medical history: Obesity. Current medication list included: flonase, ferous sulfate, astepro, magnesium, b2. PROCEDURE: The patient underwent a digital diagnostic portable type 3 device home sleep test; Utilizing [employer] portable sleep monitor. The patient was provided with printed out instructions and access to a / patient support number with staff complaint evaluation supervisor to answer any questions regarding the study. Sleep time (identified as AASM equivalent of Monitoring Time [MT] in this report) was recorded via actigraphy derived from an accelerometer physically integrated into the SleepView unit; also providing body position monitoring. Airflow and snore were recorded via an oral/nasal cannula. The option for a 2nd measure of airflow via oral/nasal thermistor is also present. Respiratory effort was recorded via Respiratory Inductance Plethysmography (also known as RIP technology, including the option for a secondary RIP belt). Oxygen saturation was obtained by a pulse oximeter, to identify oxygen desaturations and heart rate variations. All raw data was graphically depicted and utilized for scoring and detailed interpretive review. The patient underwent one night of study. The data was recorded internally to memory built into the SleepView unit and uploaded to [email or web address] website for scoring and interpretation. All raw data, graphically depicting all recorded channels, was utilized for scoring and detailed interpretive review. The standards put forth by the [employer] [place] [employer] were followed for the complete scoring by a Rn Eligibility and interpretation by a Board Certified Sleep Medicine Physician. SLEEP TIME AND EFFICIENCY: The sleep study recording began at 09:56:03 PM and ended at 06:41:03 AM. Total recording time was 525.0 minutes. The total monitoring time was 500.0 minutes. The sleep efficiency was 95.2 percent. The patient s own estimate of sleep time was 8.80 hours. The patient spent 454.0 minutes supine, and spent 46.0 minutes non-supine SNORIN.0% of the study time was spent snoring. The Snoring Count was 1. The Snoring Index was 0.1. PULSE RATE REVIEW: The mean heart rate was 69 beats per minute. The rate ranged from a low of 50 to a high of 113 beats per minute. RESPIRATORY DATA: The RALPH on this type 3 Home Sleep Study may understate the AHI determined on a type 1 or 2 study, since EEG is not monitored resulting in the inability to score non-desaturating hypopneas. Based on 3% Calculation: The RALPH 3% calculation of 7.4 per hour of monitoring time was based on a total of 10 scored apneas and 52 scored hypopneas with 3% desaturations. Supine RALPH 3%: 6.9 per hour. Non-supine RALPH 3%: 13.0 per hour. Based on 4% Calculation: The RALPH 4% calculation of 4.2 per hour of monitoring time was based on a total of 10 scored apneas and 25 scored hypopneas with 4% desaturations. Supine RALPH 4%: 3.6 per hour. Non-supine RALPH 4%: 10.4 per hour. Oxygen Saturation: Patient's baseline O2 saturation was 96.3%. The patient spent 3.3 minutes at an oxygen saturation less than 90%, and 1.6 minutes less than or equal to 88%. The desaturation index was 10.2 events per hour monitoring time. The lowest saturation was 83.2%. DIAGNOSIS ICD-10 Code: G47.30 Sleep disordered breathing G47.00 Insomnia, unspecified G47.10 Hypersomnia, unspecified TECHNICALLY ADEQUATE: Yes OVERALL IMPRESSION: As the patient s insurance utilizes 4% hypopnea scoring criteria, the accepted AHI is 4.2, which is within the normal range. Therefore, there was no evidence for significant sleep apnea on this study. Note: most home studies (including this one) do not collect information on sleep stage and cannot confirm how much true sleep was obtained. Sleep disordered breathing. The patient wakes up gasping. Insomnia Hypersomnia not explained by the findings of this study. RECOMMENDATION: Optimize sleep hygiene, including maintaining a regular bedtime and awakening time, while sleeping in a dark, quiet bedroom and avoiding stimulants such as caffeine, nicotine, decongestants and diet pills. If there is a strong clinical suspicion that this patient has obstructive sleep apnea, then consider in-facility polysomnography or a repeat home sleep apnea test, as a negative home sleep apnea test cannot confidently exclude obstructive sleep apnea in a patient with a medium to high clinical pre-test suspicion of obstructive sleep apnea. Encourage weight loss to within 10% of ideal weight. Follow the patient for response to therapy. I attest that I have conducted an [id number] review of the raw data acquired in this study and confirm that the sleep study was technically adequate, unless stated otherwise above, and sufficient to allow for my interpretation. It is good medical practice and a Medicare requirement in many jurisdictions that the ordering provider have a follow up visit with the patient to review the results of this test, whether the results were abnormal or not. Please see Chart Review > Media in Epic for full [facility] report us Kathy Cortes MD SLEEP CENTER ORDERABLES Eileen l Result * EYE EXAM (02/04/2025) Anatomical Region Laterality Modality Other Narrative 02/04/2025 Ordered by an unspecified provider. us Scanned Document SCANNING ONLY Final Result * INSULIN LEVEL FASTING (01/20/2025 8:32 AM CDT) [facility] Insulin 8.3 uIU/mL [employer] Comment: Reference Range < or = 18.4 Risk: Optimal < or = 18.4 Moderate NA High >18.4 Adult cardiovascular event risk category cut points (optimal, moderate, high) are based on Insulin Reference Interval studies performed at [place] in 2021. Test Performed at: [facility] [id number] [place] [id number] ARIANNE AARON MD Blood BLOOD SPECIMEN / Unknown 01/20/2025 8:32 AM CDT 01/20/2025 8:33 AM CDT us Kathy Cortes MD LAB - CHEMISTRY ORDERABLES F inal Result [facility] [address] [place] [address] * (ABNORMAL) HEMOGLOBIN A1C (HgbA1C) (01/20/2025 8:32 AM CDT) Hemoglobin A1c 5.7(H) <5.7 % of total Hgb [facility] Comment: For someone without known diabetes, a [...] children. REPORT COMMENT: FASTING:YES Test Performed at: [facility] [id number] ARIANNE AARON MD Blood BLOOD SPECIMEN / Unknown 01/20/2025 8:32 AM CDT 01/20/2025 8:33 AM CDT Kathy Cortes MD LAB - CHEMISTRY ORDERABLES F inal Result [facility] [address] [place] [id number] from Last 3 Months Insurance [facility] Advance Directives * Full Code (Latest Code Status on File) Date Activated Date Inactivated Comments 08/26/2024 3:26 AM 08/28/2024 7:32 PM Care Teams Faculty Research Physician Relationship Specialty Start Date End Date Farshad Rodirguez MD [address] [place] [id number] PCP - General Family Medicine 08/26/24
== END 2025-04-21 13:54 | disposition home or self-care (01) ==
PROVIDERS: PCP Emergency Medicine; Visit Provider Internal Medicine
DX: R91.1 Solitary pulmonary nodule (principal)
CPT/HCPCS: 71250